=== PATIENT | female | born 1945 | race Caucasian/White ===

== ENCOUNTER 2017-04-21 12:27 | Inpatient (IN) ==
[2017-04-21] MEDS ORDERED: 0.9 % Sodium Chloride 1,000 ML IVC ONE (12:29)
--- NOTE | 2017-04-21 12:49 | Emergency Department Note ---
Disposition Clinical Impression: Elevated troponin Disposition: Admitted As Inpatient Condition: Good Referrals: Janay Ziegler DO [Primary Care Provider] - Forms: ED Satisfaction Letter Time of Disposition: 16:51 URI/Sore Throat HPI - General Chief Complaint: ED Nausea/Vomiting/Diarrhea Stated Complaint: flu-like symptoms Time Seen by Provider: 04/21/17 12:29 Source: patient, EMS Limitations: no limitations - History of Present Illness HPI Narrative: Ms Nina is a 72 yo F with flu like symptoms for the last couple of days. Sick contacts include daughter. Patient is reporting runny nose, nausea, vomiting, diarrhea, headache, fever, chills, and myalgias. She describes the vomiting as watery, and she's unable to hold down food. She's had diarrhea x3 since last night which she describes as watery, and non-bloody. She states that this all started after having ground isabel burgers. She says watery bowels are burning when they come out like she ate something spicy. Patient denies chest pain, back pain, abdominal pain, or trouble urinating. - Related Data Previous Rx's Medication Instructions Recorded Doxycycline 100 mg PO BID 7 Days capsule 02/28/16 Lansoprazole [Prevacid] 30 mg PO DAILY #14 capsule. 02/28/16 predniSONE [PredniSONE] 40 mg PO DAILY #5 tablet 02/28/16 Phenazopyridine [Pyridium] 100 mg PO TID #18 tablet 04/26/16 Sulfacetamide Sodium 10% OPTH 2 drop BOTH EYES QID #5 bottle 01/02/17 [Bleph 10] Azithromycin 250 mg PO DAILY #4 tablet 01/25/17 Allergies Allergy/AdvReac Type Severity Reaction Status Date / Time Amoxicillin AdvReac Hives Verified 02/28/16 09:53 promethazine [From Phenergan] AdvReac Hives Verified 02/28/16 09:53 Tetracyclic Antidepressants AdvReac Hives Verified 02/28/16 09:53 All systems ED: reviewed and negative except as stated. Review of Systems: As Per HPI Constitutional: Reports: as per HPI Eyes: Reports: as per HPI Cardiovascular: Reports: as per HPI Respiratory: Reports: as per HPI Gastrointestinal: Reports: as per HPI Genitourinary: Reports: as per HPI Musculoskeletal: Reports: as per HPI Integumentary: Reports: as per HPI Neurological: Reports: as per HPI Psychiatric: Reports: as per HPI Endocrine: Reports: as per HPI URI PMH - Past Medical History Medical history: Reports: asthma, COPD, diabetes, thyroid disease Psychiatric history: Reports: no psych history - Social History Smoking Status: Never smoker Alcohol use: Reports: none Drug use: Reports: none Physical Exam - General Limitations: no limitations General appearance: alert, in no apparent distress - Head Head exam: atraumatic - Eye Eye exam: Present: normal appearance, PERRL, EOMI - ENT ENT exam: mucous membranes dry - Neck Neck exam: Present: normal inspection, full ROM, trachea midline - Chest Chest inspection: Present: normal inspection, symmetric chest wall rise - Respiratory Respiratory exam: Present: normal lung sounds bilaterally - Cardiovascular Cardiovascular exam: Present: regular rate, normal rhythm, normal heart sounds. Absent: tachycardia, irregular rhythm, systolic murmur, diastolic murmur - Abdominal Exam Abdominal exam: Present: soft, Non-Tender, normal bowel sounds. Absent: tenderness, distention, guarding, rebound, rigidity, psoas sign, obturator sign , heel tap sign, Chavez's sign, Rovsing's sign, tenderness at McBurney's Point, ascites Course Course Narrative: IVF started on patient. flu swab, cbc, cmp pending. - Reevaluation(s) Reevaluation #1: Patient HR is unstable, goes from 80 -> 130 -> 80. Glucose in 300's, with no previous diagnosis of diabetes. Trop 0.9. Will need to be admitted for cardiac workup and concern for PE. Time: 14:30 Reevaluation #2: CT chest ruled out PE. trops ~0.9. Will admit at this time Time: 16:50 Vital Signs Temperature 98.0 F 04/21/17 12:29 Pulse Rate 100 04/21/17 12:29 Respiratory Rate 20 04/21/17 12:29 Blood Pressure 143/77 04/21/17 12:29 O2 Sat by Pulse Oximetry 98 04/21/17 12:29 Temperature 98.0 F 04/21/17 12:29 Pulse Rate 87 04/21/17 13:00 Respiratory Rate 18 04/21/17 13:00 Blood Pressure 147/72 04/21/17 13:00 O2 Sat by Pulse Oximetry 99 04/21/17 13:00 Oxygen Delivery Oxygen Delivery Room Air Upper Respiratory Infection - MDM Narrative Medical decision making narrative: blood sugars in 300's and glucose in urine. tachycardia/afib on ekg with trop 0.9. Will admit for further workup. - Medical Records Medical records reviewed: Yes I reviewed the patient's medical records. - Lab Data Lab results reviewed: Yes I reviewed the patient's lab results. Result diagrams: 04/21/17 12:57 04/21/17 12:57 Lab Results 04/21/17 04/21/17 04/21/17 Range/Units 12:57 12:57 12:57 WBC 7.2 (4.3-11.1) K/mcL RBC 4.07 (3.82-4.97) M/mcL Hgb 11.8 (11.5-15.4) g/dL Hct 37.2 (35.3-44.9) % MCV 91.4 (83.0-100.0) fL MCH 29.0 (28.0-33.3) pg MCHC 31.7 (31.6-35.5) g/dL RDW 13.8 (11.5-14.5) % Plt Count 193 (140-400) K/mcL MPV 10.3 (9.4-12.4) fL Immature Gran % 0.8 (0-4) % Seg Neutrophils % 72.7 % Lymphocytes % 16.2 % Monocytes % 9.5 % Eosinophils % 0.4 % Basophils % 0.4 % Neutrophils # 5.2 (1.6-8.9) K/mcL Lymphocytes # 1.2 (0.6-4.6) K/mcL Monocytes # 0.7 (0.0-1.3) K/mcL Eosinophils # 0.0 (0.0-0.6) K/mcL Basophils # 0.0 (0.0-0.2) K/mcL Nucleated RBCs/100 WBC 0.3 H (0) /100 WBC Sodium 135 L (136-145) mEq/L Potassium 4.0 (3.5-5.1) mEq/L Chloride 101 (98-107) mEq/L Carbon Dioxide 29 (23-29) mEq/L BUN 27 H (8-23) mg/dL Creatinine 0.85 (0.60-1.20) mg/dL Est GFR ( Amer) > 60 (> 60) Est GFR (Non-Af Amer) > 60 (> 60) BUN/Creatinine Ratio 32 H (6-26) Glucose 355 H (70-105) mg/dL Calculated Osmolality 299 (280-300) Lactic Acid 2.4 H (0.5-2.2) mmol/L Calcium 9.2 (8.6-10.3) mg/dL Troponin I (< 0.04) ng/mL Urine Color (Yellow) Urine Clarity (Clear) Urine pH (5.0-8.0) pH Units Ur Specific Elmer (1.010-1.025) Urine Protein (Neg-Trace) mg/dL Urine Glucose (UA) (Normal) mg/dL Urine Ketones (Negative) mg/dL Urine Blood (Negative) Urine Nitrite (Negative) Urine Bilirubin (Negative) Urine Urobilinogen (Normal) mg/dL Ur Leukocyte Esterase (Negative) 04/21/17 04/21/17 Range/Units 12:57 12:58 WBC (4.3-11.1) K/mcL RBC (3.82-4.97) M/mcL Hgb (11.5-15.4) g/dL Hct (35.3-44.9) % MCV (83.0-100.0) fL MCH (28.0-33.3) pg MCHC (31.6-35.5) g/dL RDW (11.5-14.5) % Plt Count (140-400) K/mcL MPV (9.4-12.4) fL Immature Gran % (0-4) % Seg Neutrophils % % Lymphocytes % % Monocytes % % Eosinophils % % Basophils % % Neutrophils # (1.6-8.9) K/mcL Lymphocytes # (0.6-4.6) K/mcL Monocytes # (0.0-1.3) K/mcL Eosinophils # (0.0-0.6) K/mcL Basophils # (0.0-0.2) K/mcL Nucleated RBCs/100 WBC (0) /100 WBC Sodium (136-145) mEq/L Potassium (3.5-5.1) mEq/L Chloride (98-107) mEq/L Carbon Dioxide (23-29) mEq/L BUN (8-23) mg/dL Creatinine (0.60-1.20) mg/dL Est GFR ( Amer) (> 60) Est GFR (Non-Af Amer) (> 60) BUN/Creatinine Ratio (6-26) Glucose (70-105) mg/dL Calculated Osmolality (280-300) Lactic Acid (0.5-2.2) mmol/L Calcium (8.6-10.3) mg/dL Troponin I 0.92 H* (< 0.04) ng/mL Urine Color Yellow (Yellow) Urine Clarity Clear (Clear) Urine pH 6.0 (5.0-8.0) pH Units Ur Specific Elmer > 1.030 H (1.010-1.025) Urine Protein Negative (Neg-Trace) mg/dL Urine Glucose (UA) >=1000 H (Normal) mg/dL Urine Ketones Negative (Negative) mg/dL Urine Blood Negative (Negative) Urine Nitrite Negative (Negative) Urine Bilirubin Negative (Negative) Urine Urobilinogen Normal (Normal) mg/dL Ur Leukocyte Esterase Negative (Negative) - Radiology Data Radiology results reviewed: Yes I reviewed the patient's radiology results. Chest X-Ray 04/21/17 13:50 IMPRESSION: Stable cardiomegaly. Mild pulmonary vascular congestion. D/ / Marcial Grider MD / Marcial Grider MD Interpreting Provider: Marcial Grider MD - EKG Data EKG attestation: Yes I reviewed and interpreted this EKG. EKG shows normal: sinus rhythm Rate: normal [place]/QRS: LBBB Interpretation: other (afib and LBBB.)
[2017-04-21 13:16] LABS: Bilirubin,Urine Negative (Negative); Blood,Urine Negative (Negative); Clarity,Urine Clear (Clear); Color,Urine Yellow (Yellow); Glucose,Urine (UA) >=1000 mg/dL (Normal); Ketones,Urine Negative (Negative); Leukocyte Esterase,Urine Negative (Negative); Nitrite,Urine Negative (Negative); Protein,Urine Negative (Neg-Trace); Specific Gravity,Urine > 1.030 (1.010-1.025); Urobilinogen,Urine Normal (Normal)
[2017-04-21 13:17] LABS: Basophils % 0.4 %; Eosinophils % 0.4 %; Hematocrit 37.2 % (35.3-44.9); Hemoglobin 11.8 g/dL (11.5-15.4); Immature Granulocytes % 0.8 % (0-4); Lymphocytes # 1.2 K/mcL (0.6-4.6); Lymphocytes % 16.2 %; Mean Corpuscular HGB Conc 31.7 g/dL (31.6-35.5); Mean Corpuscular Volume 91.4 fL (83.0-100.0); Mean Platelet Volume 10.3 fL (9.4-12.4); Monocytes # 0.7 K/mcL (0.0-1.3); Monocytes % 9.5 %; Neutrophils # 5.2 K/mcL (1.6-8.9); Nucleated Red Blood Cells 0.3 /100 WBC (0); Platelet Count 193 K/mcL (140-400); Red Blood Count 4.07 M/mcL (3.82-4.97); Red Cell Distribution Width 13.8 % (11.5-14.5); Segmented Neutrophils % 72.7 %
[2017-04-21] MEDS ORDERED: Ondansetron 4 MG/2 ML VIAL IVP ONE (13:22)
[2017-04-21 13:24] LABS: BUN/Creatinine Ratio 32 (6-26); Blood Urea Nitrogen 27 mg/dL (8-23); Calcium 9.2 mg/dL (8.6-10.3); Carbon Dioxide 29 mEq/L (23-29); Chloride 101 mEq/L (98-107); Glucose 355 mg/dL (70-105); Osmolality,Calculated 299 (280-300); Sodium 135 mEq/L (136-145); eGFR For African Americans > 60 (> 60); eGFR For Non-African Americans > 60 (> 60)
--- NOTE | 2017-04-21 14:53 | Emergency Department Note ---
START Narrative - START START: I examined this patient and my medical decision-making was reviewed with the Resident Physician. I agree with the documented findings, disposition and treatment plan as described except to the extent set forth below. 72-year-old female presents to the emergency room with multiple complaints consisting of a cough, sputum production, sore throat, nausea vomiting, diarrhea. She is unsure of any documented fevers. She denies abdominal pain. We are not checking a bunch of labs on her. I noticed her heart rate to be elevated on the heart monitor. She denies any history of A. fib or any diabetes. And workup found that her sugars were elevated. Showed a left bundle branch block. This left bundle branch block is old. It does appear as though she goes into atrial fibrillation at times. At one point her heart rate jumped to the 130s and then drop down to 80 while I was in the room talking with her. Patient will need to be admitted due to the multiple complaint list. Patient will need cardiac monitoring as well. Her troponin tonight is elevated.
[2017-04-21] MEDS ORDERED: *HR* Enoxaparin 120 MG/0.8 ML SYRINGE SQ STA (16:48)
[2017-04-21] MEDS ORDERED: D5% in Water 1,000 ML IVC PRN (17:27)
[2017-04-21] MEDS ORDERED: *HR* Dextrose 50 % in Water (Syg) 50 ML SYRINGE IVP PRN (17:27)
[2017-04-21] MEDS ORDERED: Dextrose Gel 15 GM/37.5 ML TUBE PO PRN ×2 (17:27)
[2017-04-21] MEDS ORDERED: Naloxone 0.4 MG/ML INJ IVP PRN (17:28)
[2017-04-21 17:41] LABS: Creatine Kinase 85 Units/L (30-223)
[2017-04-21] MEDS: Insulin LISPRO 300 UNITS/3 ML VIAL SQ SCH ×2 (18:57→20:53)
[2017-04-21 19:13] LABS: Hemoglobin A1C 9.4 %
[2017-04-21] MEDS: Insulin DETEMIR 100 UNIT/ML X5UNITS SQ SCH (20:53)
--- NOTE | 2017-04-21 21:57 | Internal Med History&Physical ---
Date of Encounter: 04/22/17 Time of Encounter: 21:56 Assessment and Plan (1) Elevated troponin Current visit: Yes Status: Acute 72/female Multiple comorbid conditions. Admitted with worsening shortness of breath, chest pain, flulike symptoms. Noted that patient had elevated troponin. On examination. No third heart sound heard. JVP not raised. Assessment: Elevated troponin likely secondary to demand ischemia/flulike symptoms. However non-STEMI cannot be ruled out. Plan: Admit as observation. Resume home medication. Symptomatic treatment for diarrhea/cough and cold: Viral symptoms. Noted that in the emergency room patient received Lovenox 1 mg per patient. Cardiology consult. We will wait for cardiology recommendations. (2) Flu-like symptoms Current visit: Yes Status: Acute See above (3) Diabetes mellitus Current visit: Yes Status: Acute Patient is known to have a diabetes mellitus. Patient is presently on home medication. We will follow the recommendations from subcutaneous insulin order set. 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 Internal Medicine - H&P: HPI Chief complaint: chest pain Admitted From: Emergency Dept Plans for Post Hospital Care: Home History of present illness: Ms. Nina is a 72 year old female whose primary care physician is Dr. Janay villatoro. Patient is a background medical history of diabetes, hypertension, COPD, hypothyroidism. Patient was complaining of cough along with shortness of breath for the past 4 days. In last 48 hours the symptoms are getting worse. Patient does have a sick contact at home which is her daughter. Patient also complains of nausea, vomiting, headache, fever along with chills and myalgia. She has multiple episodes of vomiting. Patient also claims that she had a 4 or 5 episodes of diarrhea. All the episodes of diarrhea were watery in nature and did not have any blood/black color stools. Patient denies chest pain, back pain, trouble urinating and abdominal pain. Workup in the emergency room. Patient was evaluated in the emergency room. basic labs were drawn. Noted that her troponin was elevated. Reason for admission: elevated troponin to rule out non-STEMI. Past Med Surg Social Fam HX - Past Medical History Medical history: asthma, COPD, diabetes, osteoporosis, RA, thyroid disease Psychiatric history: no psych history - Past Surgical History Surgical History: hysterectomy, orthopedic, other - Social History Smoking Status: Never smoker Smokeless Tobacco Status: No Alcohol use: none Drug use: none - Family History Daughter Hx Family Cancer: Yes Internal Medicine - H&P: Meds Albuterol Sulfate [Ventolin Hfa] 2 puff IH Q4H PRN 04/21/17 [History] Calcium/Magnesium/Zinc [Koksvua-Thnmgplmv-Gfdb Tab] 1 each PO DAILY 04/21/17 [ History] Fluticasone/Salmeterol [Advair 250-50 Diskus] 1 each IH BID 04/21/17 [History] Furosemide [Lasix] 20 mg PO DAILY 04/21/17 [History] Ibuprofen [Motrin] 400 mg PO Q6H PRN 04/21/17 [History] Insulin NPH Hum/Reg Insulin Hm [Novolin 70-30 100 Unit/ml Vial] 15 unit SQ QPM 04/21/17 [History] Insulin NPH Hum/Reg Insulin Hm [Novolin 70-30 100 Unit/ml Vial] 65 unit SQ QAM 04/21/17 [History] Levothyroxine [Synthroid] 175 mcg PO 0630 04/21/17 [History] Nitroglycerin 0.4 mg TD DAILY 04/21/17 [History] Ranitidine HCl [Zantac] 150 mg PO DAILY 04/21/17 [History] Tramadol HCl [Ultram] 50 mg PO Q8H PRN 04/21/17 [History] Vitamin B Complex [B Complex] 1 each PO DAILY 04/21/17 [History] 3 Allergy/AdvReac Type Severity Reaction Status Date / Time Amoxicillin AdvReac Hives Verified 02/28/16 09:53 promethazine [From Phenergan] AdvReac Hives Verified 02/28/16 09:53 Tetracyclic Antidepressants AdvReac Hives Verified 02/28/16 09:53 All Systems PM: A 10-system review of systems was performed and is negative for pertinent findings except as documented above in the HPI. - Constitutional Constitutional: fatigue, fever(s), lethargy, malaise - EENT Eyes: no change in vision, no discharge, no pain, no photophobia Ears: no ear discharge, no ear pain, no tinnitus Nose, mouth and throat: no dysphagia, no nasal discharge, no neck pain, no sore throat - Cardiovascular Cardiovascular ROS IM: diaphoresis, lightheadedness, no chest pain, no dyspnea, no palpitations, no syncope - Respiratory Respiratory: no cough, no dyspnea, no wheezing, no excessive phlegm production - Gastrointestinal Gastrointestinal: no abdominal pain, no diarrhea, no hematemesis, no hematochezia, no melena, no nausea, no vomiting - Genitourinary Genitourinary: no change in urinary stream, no dysuria, no flank pain, no hematuria - Musculoskeletal Musculoskeletal ROS IM: no numbness, no tingling - Integumentary Integumentary IM: no rash, no unusual bruising - Neurological Neurological ROS: no confusion, no convulsions, no focal weakness, no numbness, no tingling, no tremor(s) - Hematologic/Lymphatic Hematologic/Lymphatic: no easy bruising - Constitutional Vitals: Temp Pulse Resp BP Pulse Ox 98.3 F 92 18 101/46 96 04/21/17 20:48 04/21/17 20:48 04/21/17 20:48 04/21/17 20:48 04/21/17 21:10 General appearance: Present: A&O X 3, pleasant, no acute distress, answers questions appropriately - Head Head exam: Present: atraumatic, normocephalic - Eye Eye exam: Present: PERRL, conjuntiva pink, sclera anicteric Pupils: Present: PERRL - Neck Neck exam general surgery: Present: supple, trachea midline. Absent: lymphadenopathy - Respiratory Respiratory exam: Present: CTAB. Absent: accessory muscle use, rales, rhonchi, wheezes - Cardiovascular Cardiovascular exam: Present: RRR, +S1, +S2. Absent: diastolic murmur, gallop, rubs, systolic murmur - GI/Abdominal GI/Abdominal exam: Present: normal bowel sounds, soft, no peritoneal signs. Absent: distended, tenderness - Extremities Exam Extremities exam: Present: warm, radial pulses palpable and symmetrical. Absent : calf tenderness, cyanotic, pedal edema - Neurological Exam Neurological exam: Present: CN II-XII intact, oriented X3, no focal deficits. Absent: pronater drift, facial droop, speech deficit - Skin Skin exam: Present: dry, intact Internal Med - H&P Results - Labs CBC & Chem 7: 04/21/17 12:57 04/21/17 12:57 Labs: Cardiac Enzymes 04/21/17 Range/Units 18:09 Troponin I 0.84 H* (< 0.04) ng/mL
[2017-04-21] MEDS: Budesonide/Formoterol 160/4.5 MDI IH SCH (22:10)
[2017-04-21] MEDS ORDERED: Saline Nasal Spray 44 ML BOTTLE NS PRN (22:19)
[2017-04-21] MEDS: traMADol 50 MG TABLET PO PRN (23:42)
[2017-04-22] MEDS ORDERED: Enoxaparin Weight Dosing SQ STA (00:03)
[2017-04-22] MEDS ORDERED: Ondansetron 4 MG/2 ML VIAL IVP PRN (01:32)
[2017-04-22 06:09] LABS: Basophils % 0.5 %; Eosinophils # 0.1 K/mcL (0.0-0.6); Eosinophils % 1.5 %; Hematocrit 33.9 % (35.3-44.9); Hemoglobin 10.8 g/dL (11.5-15.4); Immature Granulocytes % 0.7 % (0-4); Lymphocytes # 1.7 K/mcL (0.6-4.6); Lymphocytes % 29.2 %; Mean Corpuscular HGB Conc 31.9 g/dL (31.6-35.5); Mean Corpuscular Hemoglobin 29.2 pg (28.0-33.3); Mean Corpuscular Volume 91.6 fL (83.0-100.0); Mean Platelet Volume 10.3 fL (9.4-12.4); Monocytes # 0.7 K/mcL (0.0-1.3); Monocytes % 11.3 %; Neutrophils # 3.4 K/mcL (1.6-8.9); Platelet Count 177 K/mcL (140-400); Red Cell Distribution Width 14.1 % (11.5-14.5); Segmented Neutrophils % 56.8 %
[2017-04-22 06:38] LABS: BUN/Creatinine Ratio 32 (6-26); Blood Urea Nitrogen 22 mg/dL (8-23); Calcium 8.8 mg/dL (8.6-10.3); Carbon Dioxide 27 mEq/L (23-29); Chloride 107 mEq/L (98-107); Chol/HDL Ratio 3.4 (0-4.9); Cholesterol 200 mg/dL (< 200); Glucose 99 mg/dL (70-105); HDL Cholesterol 58 mg/dL (40-59); LDL Cholesterol,Calculated 119 mg/dL (0-99); Osmolality,Calculated 293 (280-300); Potassium 3.8 mEq/L (3.5-5.1); Sodium 140 mEq/L (136-145); Triglycerides 116 mg/dL (< 150); eGFR For African Americans > 60 (> 60); eGFR For Non-African Americans > 60 (> 60)
[2017-04-22] MEDS: Budesonide/Formoterol 160/4.5 MDI IH SCH ×2 (07:37→19:34)
[2017-04-22] MEDS: Insulin LISPRO 300 UNITS/3 ML VIAL SQ SCH ×7 (08:10→17:11)
--- NOTE | 2017-04-22 09:00 | Internal Med Progress Note ---
Date of Encounter: 04/22/17 Time of Encounter: 13:00 - Assessment and plan (1) NSTEMI (non-ST elevated myocardial infarction) Current Visit: Yes Status: Acute Assessment and plan: Patient being treated for acute non-ST elevation TN. Cardiology following. Planned cardiac catheterization today. Anticoagulation With Lovenox. Continue supportive care. High risk for complications. Monitor vital signs closely (2) Elevated troponin Current Visit: Yes Status: Acute (3) Morbid obesity with BMI of 40.0-44.9, adult Current Visit: Yes Status: Acute (4) Diabetes mellitus Current Visit: Yes Status: Acute Assessment and plan: Diabetic diet. Sliding scale insulin and Levemir. Qualifiers: Diabetes mellitus type: type 2 Diabetes mellitus complication status: with unspecified complications Diabetes mellitus correction insulin use: unspecified terminal operator insulin use status Qualified Code(s): E11.8 - Type 2 diabetes mellitus with unspecified complications (5) Flu-like symptoms Current Visit: Yes Status: Acute (6) DVT prophylaxis Current Visit: Yes Status: Acute Assessment and plan: Lovenox - Constitutional Vitals: Temp Pulse Resp BP Pulse Ox 97.5 F L 71 18 119/60 98 04/22/17 06:50 04/22/17 06:50 04/22/17 07:41 04/22/17 06:50 04/22/17 07:41 General appearance: Present: A&O X 3, pleasant, no acute distress, answers questions appropriately - Respiratory Respiratory exam: Present: CTAB. Absent: accessory muscle use, rales, rhonchi, wheezes Additional comments: tenderness over right lateral lower ribs - Cardiovascular Cardiovascular exam: Present: RRR, +S1, +S2. Absent: diastolic murmur, gallop, rubs, systolic murmur - GI/Abdominal GI/Abdominal exam: Present: normal bowel sounds, soft, no peritoneal signs. Absent: distended, tenderness - Extremities Exam Extremities exam: Present: warm, radial pulses palpable and symmetrical. Absent : calf tenderness, cyanotic, pedal edema - Neurological Exam Neurological exam: Present: CN II-XII intact, oriented X3, no focal deficits. Absent: facial droop, speech deficit Internal Medicine: Result - Labs CBC & Chem 7: 04/23/17 06:56 04/23/17 06:56 Labs: Short CBC 04/22/17 Range/Units 05:39 WBC 6.0 (4.3-11.1) K/mcL Hgb 10.8 L (11.5-15.4) g/dL Hct 33.9 L (35.3-44.9) % Plt Count 177 (140-400) K/mcL Neutrophils # 3.4 (1.6-8.9) K/mcL BMP 04/22/17 05:39 Sodium 140 Potassium 3.8 Chloride 107 Carbon Dioxide 27 BUN 22 Creatinine 0.69 Glucose 99 Calcium 8.8 Cardiac Enzymes 04/21/17 04/21/17 Range/Units 18:09 22:55 Troponin I 0.84 H* 0.55 H* (< 0.04) ng/mL Consult Discharge Plan - Plan Referrals: Janay Ziegler DO [Primary Care Provider] -
--- NOTE | 2017-04-22 09:29 | Cardiology Consult Note ---
Date of Encounter: 04/22/17 Time of Encounter: 09:26 Assessment and Plan (1) NSTEMI (non-ST elevated myocardial infarction) Current Visit: Yes Status: Acute Troponins 0.92, 0.84, 0.55--downtrending. Pt reports intermittent left sided chest pressure that started 2 weeks ago, no exacerbating or alleviating factors. Worsening dyspnea and cough. Also reports GI symptoms of nausea, vomiting, diarrhea over the past 48 hours. Flu swabs negative. Pt is afebrile with normal WBC. EKG LBBB--not new. Received therapeutic Lovenox at midnight. Will start ASA, Statin, BB. No hx of CAD, but multiple risk factors--obesity, htn, hld, dm. Check echo to evaluate structure and function. Recommend LHC to further evaluate. R/B/A discussed. Pt agrees to proceed. (2) LBBB (left bundle branch block) Current Visit: Yes Status: Acute LBBB on EKG, not new. Discussion w patient/family: The assessment and plan as outlined above was discussed with the patient and/or family members who expressed understanding and agreement. All questions were answered. Thank you for involving us in the care of your patient. Please call with any questions. I will discuss all the above with Dr. Chadwick and make changes as necessary. History of Present Illness Consult date: 04/22/17 Requesting physician: Kwan Heredia Consult reason: Elevated troponin Chief complaint: chest pain, flu like symptoms History of present illness: Ms. Nina is a 72 year old female with PMH of diabetes, hypertension, COPD, hypothyroidism. Pt reports she started having intermittent left sided chest pressure 2 weeks ago, no exacerbating or alleviating factors. Pt has reported cough and dyspnea over recent days. In last 48 hours symptoms were getting worse , prompting ED evaluation. Patient does have a sick contact at home which is her daughter. Patient also complains of nausea, vomiting, headache, fever along with chills and myalgia. She has had multiple episodes of vomiting. Patient also claims that she had a 4 or 5 episodes of diarrhea. All the episodes of diarrhea were watery in nature and did not have any blood/black color stools. Troponins found to be 0.92, 0.84, 0.55 and cardiology was consulted for further recommendations. EKG LBBB, not new. Flu swab negative. Chest CTA negative for PE. Past Med Surg Social Fam HX - Past Medical History Medical history: asthma, COPD, diabetes, osteoporosis, RA, thyroid disease Psychiatric history: no psych history - Past Surgical History Surgical History: hysterectomy, orthopedic, other - Social History Smoking Status: Never smoker Smokeless Tobacco Status: No Alcohol use: none Drug use: none - Family History Daughter Hx Family Cancer: Yes Medications and Allergies Albuterol Sulfate [Ventolin Hfa] 2 puff IH Q4H PRN 04/21/17 [History] Calcium/Magnesium/Zinc [Ovjvgji-Msvgqhoho-Fvjd Tab] 1 each PO DAILY 04/21/17 [ History] Fluticasone/Salmeterol [Advair 250-50 Diskus] 1 each IH BID 04/21/17 [History] Furosemide [Lasix] 20 mg PO DAILY 04/21/17 [History] Ibuprofen [Motrin] 400 mg PO Q6H PRN 04/21/17 [History] Insulin NPH Hum/Reg Insulin Hm [Novolin 70-30 100 Unit/ml Vial] 15 unit SQ QPM 04/21/17 [History] Insulin NPH Hum/Reg Insulin Hm [Novolin 70-30 100 Unit/ml Vial] 65 unit SQ QAM 04/21/17 [History] Levothyroxine [Synthroid] 175 mcg PO 0630 04/21/17 [History] Nitroglycerin 0.4 mg TD DAILY 04/21/17 [History] Ranitidine HCl [Zantac] 150 mg PO DAILY 04/21/17 [History] Tramadol HCl [Ultram] 50 mg PO Q8H PRN 04/21/17 [History] Vitamin B Complex [B Complex] 1 each PO DAILY 04/21/17 [History] 3 Allergy/AdvReac Type Severity Reaction Status Date / Time Amoxicillin AdvReac Hives Verified 02/28/16 09:53 promethazine [From Phenergan] AdvReac Hives Verified 02/28/16 09:53 Tetracyclic Antidepressants AdvReac Hives Verified 02/28/16 09:53 All Systems Review: A 10-system review of systems was performed and is negative for pertinent findings except as documented above in the HPI. - Constitutional Constitutional: chills, fever(s) - Cardiovascular Cardiovascular: as per HPI, chest pain at rest, chest pain with exertion, dyspnea at rest, dyspnea on exertion - Gastrointestinal Gastrointestinal: diarrhea, nausea Physical Examination Vital Signs, Last 4 Hours Temp Pulse Resp BP Pulse Ox 04/22/17 07:41 18 98 04/22/17 06:50 97.5 F L 71 18 119/60 95 Vital Signs Temp Pulse Resp BP Pulse Ox 04/22/17 07:41 18 98 04/22/17 06:50 97.5 F L 71 18 119/60 95 04/22/17 05:14 97.4 F L 94 17 119/82 94 04/22/17 01:09 77 142/72 04/22/17 00:06 98.5 F 62 17 162/85 96 04/21/17 22:11 19 98 04/21/17 21:10 81 04/21/17 20:48 98.3 F 92 18 101/46 96 04/21/17 13:00 87 18 147/72 99 04/21/17 12:59 99 04/21/17 12:29 98.0 F 100 20 143/77 98 Intake and Output 04/21/17 04/22/17 04/22/17 23:59 07:59 15:59 Intake Total 1150 / 1150 Output Total 300 / 300 Balance 850 / 850 Intake: IV Fluids 1000 / 1000 0.9 % Sodium Chloride 1,000 ML 1000 / 1000 @ 3750 mls/hr IVC .Q16M ONE Rx# :[id number] Oral 150 / 150 Output: Urine 300 / 300 Other: Meal meatloaf and mashed potatoes, goldfish and jello Percent of Meal Consumed 100% Weight 104.383 kg Blood Glucose* 283 89 Patient Weight 04/22/17 23:59 Weight 104.383 kg General: Conversant, No Apparent Distress HEENT: Atraumatic, Normocephaly, Mucus Membranes Moist Neck: No JVD, Normal carotid pulses Cardiac: Reg Rate and Rhythm, Normal S1 and S2, No Murmur Lungs: Normal Breath Sounds, No Wheeze, Rales, Rhonchi Neuro: Alert and responsive, No focal deficits noted Abdomen: Soft, Non-Tender Skin: No rashes noted on visualized skin Musculoskeletal: No Chest Wall Tenderness Extremities: No Clubbing, No Cyanosis, No Edema, Normal Pulses Results 04/22/17 05:39 04/22/17 05:39 Lab Results 04/21/17 04/21/17 04/22/17 18:09 22:55 05:39 WBC 6.0 Hgb 10.8 L Hct 33.9 L Plt Count 177 Sodium Potassium Chloride Carbon Dioxide BUN Creatinine Glucose Calcium Magnesium Troponin I 0.84 H* 0.55 H* 04/22/17 05:39 WBC Hgb Hct Plt Count Sodium 140 Potassium 3.8 Chloride 107 Carbon Dioxide 27 BUN 22 Creatinine 0.69 Glucose 99 Calcium 8.8 Magnesium 2.0 Troponin I Short CBC 04/22/17 04/21/17 Range/Units 05:39 12:57 WBC 6.0 7.2 (4.3-11.1) K/mcL Hgb 10.8 L 11.8 (11.5-15.4) g/dL Hct 33.9 L 37.2 (35.3-44.9) % Plt Count 177 193 (140-400) K/mcL Neutrophils # 3.4 5.2 (1.6-8.9) K/mcL BMP 04/22/17 04/21/17 Range/Units 05:39 12:57 Sodium 140 135 L (136-145) mEq/L Potassium 3.8 4.0 (3.5-5.1) mEq/L Chloride 107 101 (98-107) mEq/L Carbon Dioxide 27 29 (23-29) mEq/L BUN 22 27 H (8-23) mg/dL Creatinine 0.69 0.85 (0.60-1.20) mg/dL Glucose 99 355 H (70-105) mg/dL Calcium 8.8 9.2 (8.6-10.3) mg/dL Cardiac Enzymes 04/21/17 04/21/17 04/21/17 Range/Units 22:55 18:09 12:57 Troponin I 0.55 H* 0.84 H* 0.92 H* (< 0.04) ng/mL Urine 04/21/17 Range/Units 12:58 Urine Color Yellow (Yellow) Urine Clarity Clear (Clear) Urine pH 6.0 (5.0-8.0) pH Units Ur Specific [place] > 1.030 H (1.010-1.025) Urine Protein Negative (Neg-Trace) mg/dL Urine Glucose (UA) >=1000 H (Normal) mg/dL Impressions Chest X-Ray 04/21/17 13:50 IMPRESSION: Stable cardiomegaly. Mild pulmonary vascular congestion. D/ / Marcial Grider MD / Marcial Grider MD Interpreting Provider: Marcial Grider MD Chest CTA 04/21/17 15:15 IMPRESSION: 1. No evidence of pulmonary embolism 2. No infiltrate 3. Possible pulmonary venous hypertension D/ / Tuan Sue MD / Tuan Sue MD Interpreting Provider: Tuan Sue MD Active Medications Budesonide/Formoterol Fumarate (Symbicort) 1 puff IH BIDR JEET Stop: 10/21/17 22:01 Last Admin: 04/22/17 07:37 Dose: 1 puff Dextrose/Water (Dextrose 50% (Syg)) 25 ml IVP AD PRN PRN Reason: Hypoglycemia Stop: 10/21/17 17:28 Famotidine (Pepcid) 20 mg PO DAILY JEET Stop: 10/22/17 09:01 Furosemide (Lasix) 20 mg PO DAILY JEET Stop: 10/22/17 09:01 Glucagon (Glucagen) 1 mg IM ONCE PRN PRN Reason: Hypoglycemia Stop: 10/21/17 17:28 Glucose (Gluctose) 15 gm PO ONCE PRN PRN Reason: Hypoglycemia Stop: 10/21/17 17:28 Glucose (Gluctose) 30 gm PO ONCE PRN PRN Reason: Hypoglycemia Stop: 10/21/17 17:28 Dextrose (Dextrose 5%) 1,000 mls @ 100 mls/hr IVC .Q10H PRN PRN Reason: HYPOGLYCEMIA Stop: 10/21/17 17:28 Insulin Detemir (Levemir) 26 unit 0.25 unit/kg (26 unit) SQ HS JEET Stop: 10/21/17 21:01 Last Admin: 04/21/17 20:53 Dose: 26 unit Insulin Human Lispro (Humalog) 5 units SQ TIDWM JEET Stop: 10/21/17 17:31 Last Admin: 04/22/17 08:10 Dose: Not Given Insulin Human Lispro (Humalog) 0 units SQ HS JEET PRN Reason: Protocol Stop: 10/22/17 21:01 Insulin Human Lispro (Humalog) 0 units SQ TIDAC JEET PRN Reason: Protocol Stop: 10/22/17 08:16 Last Admin: 04/22/17 08:11 Dose: Not Given Levothyroxine Sodium (Synthroid) 175 mcg PO 0630 JEET Stop: 10/22/17 06:31 Last Admin: 04/22/17 05:30 Dose: 175 mcg Naloxone HCl (Narcan) 0.4 mg IVP Q2MIN PRN PRN Reason: SEE COMMENTS Stop: 10/21/17 17:29 Nitroglycerin (Nitroglycerin) 0.4 mg TD DAILY JEET Stop: 10/22/17 09:01 Ondansetron HCl (Zofran) 4 mg IVP Q6HR PRN; Protocol PRN Reason: Nausea Stop: 10/22/17 01:33 Last Admin: 04/22/17 01:41 Dose: 4 mg Sodium Chloride ([place] Nasal [place]) 2 spray NS Q2H PRN PRN Reason: Congestion Stop: 10/21/17 22:20 Last Admin: 04/21/17 22:36 Dose: 2 spray Tramadol HCl (Ultram) 50 mg PO Q8H PRN PRN Reason: Pain Stop: 10/21/17 17:23 Last Admin: 04/21/17 23:42 Dose: 50 mg - EKG Interpretation EKG results cardiology: personally reviewed (SR, LBBB), other (12 hr tele AVG HR 83, SR) Consult Discharge Plan - Plan Referrals: Janay Ziegler DO [Primary Care Provider] -
[2017-04-22] MEDS: Famotidine 20 MG TABLET PO SCH (09:33)
[2017-04-22] MEDS: Furosemide 20 MG TABLET PO SCH (09:33)
[2017-04-22] MEDS: Nitroglycerin 0.4 MG PATCH.TD24 TD SCH ×2 (09:34→09:46)
[2017-04-22] MEDS: Aspirin 81 MG TAB.CHEW PO SCH (10:21)
--- NOTE | 2017-04-22 14:15 | Pre-Sedation Evaluation ---
Pre-sedation evaluation - Pre-sedation checklist Date of procedure: 04/22/17 Procedure: [facility] Recent Vitals: Last Vital Signs Temp 97.5 F L 04/22/17 06:50 Pulse 59 04/22/17 11:48 Resp 16 04/22/17 11:48 BP 135/79 04/22/17 11:48 Pulse Ox 97 04/22/17 11:48 H&P (including ROS) documented in medical record: Yes Previous reaction to sedatives/anesthetics: No Dietary Status: NPO after Midnight Airway Assessment: Patient can open mouth completely, TMJ function normal, Micrognathia (under-bite, receding chin) absent, Neck with adequate range of motion Dentition: No loose teeth or bridges Possible difficult airway: No ASA Classification *see protocol: CLASS II-Mild systemic disease Plan of Care: Pt appropriate candidate for procedure/moderate/conscious sedation , Risks/benefits of procedure/sedation discussed w/ patient/family
[2017-04-22] MEDS ORDERED: *HR* FentaNYL (PF) 100 MCG/2 ML VIAL ONE (14:19)
[2017-04-22] MEDS ORDERED: *HR* Midazolam HCl 2 MG/2 ML VIAL ONE ×2 (14:19→14:51)
[2017-04-22] MEDS ORDERED: 0.9 % Sodium Chloride 1,000 ML ONE ×2 (14:23→15:06)
[2017-04-22] MEDS ORDERED: ISOVUE-370 200 ML INFUS..BTL IV ONE ×2 (15:02→15:05)
[2017-04-22] MEDS ORDERED: Heparin 1,000 UNITS/500 mL 500 ML ONE (15:05)
[2017-04-22] MEDS ORDERED: *HR* Heparin 10,000 UNIT/10 ML VIAL ONE (15:05)
[2017-04-22] MEDS ORDERED: Nitroglycerin 1,000 MCG/10 ML VIAL IV ONE (15:06)
[2017-04-22] MEDS ORDERED: *HR* Bivalirudin 250 MG VIAL IVC ONE (15:19)
[2017-04-22] MEDS ORDERED: *HR* Ticagrelor 90 MG TABLET ONE (15:21)
--- NOTE | 2017-04-22 18:33 | Invasive Diagnostic Lab Proc ---
Name: Brii Nina Date of Study: 04/22/2017 Date: 1945 Ht: 63.0in Medical Record#: [id number] Age: 72 Wt: 104.28lb Gender: Female BSA: 1.47 Order #: [id number] BMI: 18.48 Physicians Procedure Physician: Tatiana Renee MD, [facility] Referring MD: Referring MD: Staff Name Position Time In Sites, Kimber RT (R) Monitor 02:18 PM Nidhi Ricardo RT (R) Scrub 02:18 PM Eliseo Pineda RN Case Filler 02:18 PM Indications Indication Non-Stemi Procedures Performed Procedure L HRT ARTERY/VENTRICLE ANGIO PRQ CARD CARMELO STENT W/ANGIO 1 VSL Pre-Procedure Checklist Informed consent is complete signed and on chart. H&P is on chart. ID band is on and ID verified with patient. Patient NPO for procedure The procedure was described for the patient and questions were answered. Blood Pressure: 119/60 ECG is on chart. Rhythm: NSR Plan of Care Patient will tolerate the procedure without complications. Adequate level of comfort will be maintained. Hemodynamics will remain stable Patient will recover from procedure without complications. Respiratory function will be maintained. Cardiac rhythm will remain stable. Patient temperature will be maintained. Patient and/or family have verbalized understanding of the procedure. Patient Education Chief Complaint/Reason for Test: Cardiac Cath Developmental Category: Geriatric (65+ years) Developmentally Appropriate for Age: Yes Learning Barriers: None Education Needs: Procedure Education Method: Verbal Information Taught: Cardiac Cath Educational Evaluation: Able to repeat information Intravenous Access Time IV Size Location DC'd Fluid/Drip Rate Units RN 20g 1 03/06" Patent On Arrival Lt Antecubital 0.9NaCl Allergies Amoxicillin Celecoxib CODEINE Tetracycline Tetracyclic Antidepressants promethazine Penicillin SULFA (sulfonamide) Vital Signs Time BP (mmHg) HR (bpm) O2 Sat. RR (bpm) LOC 119 / 60 71 98 % 18 02:19 PM / % 5 = Fully awake and oriented or at pre-proc level 02:19 PM / % 5 = Fully awake and oriented or at pre-proc level 02:30 PM 177 / 42 67 100 % 16 02:34 PM 60 / 38 62 98 % 29 02:36 PM 144 / 42 69 95 % 20 02:40 PM 147 / 34 64 98 % 16 02:44 PM 151 / 74 100 99 % 11 02:50 PM 152 / 55 66 99 % 20 02:55 PM 129 / 46 77 91 % 18 02:59 PM 130 / 45 79 97 % 19 03:04 PM 103 / 32 66 96 % 22 03:21 PM 129 / 96 65 95 % 16 5 = Fully awake and oriented or at pre-proc level 03:35 PM 158 / 70 61 96 % 18 5 = Fully awake and oriented or at pre-proc level 03:47 PM 151 / 69 62 97 % 18 5 = Fully awake and oriented or at pre-proc level 04:00 PM 158 / 74 63 100 % 16 5 = Fully awake and oriented or at pre-proc level 04:15 PM 145 / 67 64 98 % 16 5 = Fully awake and oriented or at pre-proc level 04:30 PM 153 / 71 92 99 % 16 5 = Fully awake and oriented or at pre-proc level 04:45 PM 151 / 77 65 98 % 16 5 = Fully awake and oriented or at pre-proc level 05:00 PM 151 / 85 67 98 % 16 5 = Fully awake and oriented or at pre-proc level 05:15 PM 165 / 88 84 98 % 20 5 = Fully awake and oriented or at pre-proc level 05:30 PM 165 / 76 64 99 % 8 5 = Fully awake and oriented or at pre-proc level 06:00 PM 192 / 87 69 98 % 19 5 = Fully awake and oriented or at pre-proc level 06:15 PM 171 / 94 65 99 % 19 5 = Fully awake and oriented or at pre-proc level Procedural Medications Time Medication Dose Units Method Given By 02:19 PM Oxygen 2 L/min nasal cannula Elisoe Pineda RN 02:19 PM Versed 2 mg Intravenous Eliseo Pineda RN 02:19 PM Fentanyl 50 mcg Intravenous Eliseo Pineda RN 02:33 PM Lidocaine 2% 20 ml Subcutaneous Tatiana Renee MD, FACC 02:52 PM Angiomax 0.75mg/kg bolus: 16 ml Intravenous Eliseo Pineda RN 02:52 PM Angiomax 1.75mg/kg/hr: 37 ml Intravenous Eliseo Pineda RN 02:53 PM Versed 1 mg Intravenous Eliseo Pineda RN 02:53 PM Fentanyl 25 mcg Intravenous Eliseo Pineda RN 03:02 PM Nitroglycerin 200 mcg Intracoronary Tatiana Renee MD, FACC 03:07 PM Brilinta 180 mg Orally Eliseo Pineda RN 03:45 PM Angiomax Angela Mancera RN ASA Classification: CLASS II- Mild systemic disease (i.e. well-controlled diabetes, hypertension, asthma, cigarette smoking) Jonathan Score Preprocedure Postprocedure Activity 2- Moves 4 extremities sustained head lift Activity 2- Moves 4 extremities sustained head lift Circulation 2- SBP +/= 20 points of pre-anesthetic level Circulation 2- SBP +/= 20 points of pre-anesthetic level Consciousness 2- Awake and alert oriented x 3 Consciousness 2- Awake and alert oriented x 3 O2 Saturation 2- Able to maintain O2 satruation of 92% on room air O2 Saturation 2- Able to maintain O2 satruation of 92% on room air Respiratory 2- Able to deep breathe and cough well Respiratory 2- Able to deep breathe and cough well Total Score 10 Total Score 10 Contrast Agent: Isovue Diagnostic Contrast: 126 ml Total Contrast: 126 ml Fluoro Dose: 518 mGy Procedure Log Time Note Enter By 02:18 PM Pt arrived to quality control lab tech 2 at 14:18 tsites 02:18 PM Physician arrived 14:18 tsites 02:18 PM Meet and greet completed tsites 02:18 PM Sign in performed according to hospital policy. tsites 02:18 PM Procedure start 14:18 tsites 02:18 PM Kimber Quintero RT (R) Position: Monitor Time in: 14:18 tsites 02:18 PM Nidhi Ricardo RT (R) Position: Scrub Time in: 14:18 tsites 02:19 PM Eliseo Pineda RN Position: Case Filler Time in: 14:18 tsites 02:19 PM Patient charges- Angio tray pack, Navilyst 3mm J, Pulse Oximetry and ACIST tubing and transducer tsites 02:19 PM Case Delayed No tsites 02:19 PM Time: 14: Oxygen on at 2 L/min per nasal cannula by Eliseo Pineda RN tsites 02:19 PM Hair removed from procedure site in holding area using clippers. Bilateral groin prepped with Chloraprep by Kimber Quintero RT (R), then patient was draped. Skin intact. tsites 02:19 PM Time: 14:19 Versed 2 mg Intravenous Given by Eliseo Pineda RN tsites 02:19 PM Time: 14:19 Fentanyl 50 mcg Intravenous Given by Eliseo Pineda RN tsites 02:19 PM Time: 14:19 Patient comfortable and pain free: Yes tsites 02:19 PM Time: 14:19LOC: 5 = Fully awake and oriented or at pre-proc level tsites 02:20 PM Clinical Presentation: Non-STEMI tsites 02:26 PM CathStat 02:26 PM Vitals capture started with the following parameters, Patient=Adult, Interval=5 min, Initial Krtkrojr=247 mmHg, Deflation Rate=5 mmHg, Cuff placed on Right Arm 02:28 PM Vitals capture started with the following parameters, Patient=Adult, Interval=5 min, Initial Sdwoboox=043 mmHg, Deflation Rate=5 mmHg, Cuff placed on Right Arm 02:28 PM Recorded ECG: HR=68 Condition=Condition 1 02:30 PM HR=67 bpm, WVTK=787/42 mmhg, TaU2=134.0 %, Resp=16 B/min 02:33 PM Time out performed according to hospital policy tsites 02:33 PM Time: 14:33 20 ml Lidocaine 2% to right groin Subcutaneous Given by Tatiana Renee MD, [facility] tsites 02:34 PM Pressure channel 1 zero failed. 02:34 PM Pressure channel 1 zero failed. 02:34 PM Pressure channel 1 zeroed. 02:34 PM HR=62 bpm, NIBP=60/38 mmhg, SpO2=98.0 %, Resp=29 B/min 02:34 PM NIBP STAT measurement started. 02:35 PM Time: 14:19LOC: 5 = Fully awake and oriented or at pre-proc level tsites 02:35 PM Time: 14:19 Patient comfortable and pain free: Yes tsites 02:36 PM HR=69 bpm, YCDQ=191/42 mmhg, SpO2=95 %, Resp=20 B/min 02:38 PM Access obtained by percutaneous puncture. 5Fr 10cm Terumo Curlew sheath placed in right Femoral artery. [id number] tsites 02:38 PM 5Fr FL 4 catheter inserted over the wire [facility] tsites 02:38 PM 0.035 145cm Navilyst 3mmJ wire [id number] tsites 02:39 PM LCA angiography performed in multiple views. tsites 02:39 PM Recorded Pressure: Ao, HR=65, Condition=Condition 1 (Aorta) Ao 128/60/87 02:40 PM HR=64 bpm, JZYV=274/34 mmhg, SpO2=98 %, Resp=16 B/min 02:42 PM wire reinserted catheter removed tsites 02:43 PM Recorded Pressure: Ao, HR=80, Condition=Condition 1 (Aorta) Ao 48/-27/6 02:43 PM 5Fr FR 4 catheter inserted over the wire [facility] tsites 02:43 PM RCA angiography performed in multiple views. tsites 02:43 PM wire reinserted catheter removed tsites 02:43 PM 5Fr Pigtail catheter inserted over the wire DN tsites 02:43 PM Catheter selectively placed in left ventricle tsites 02:43 PM Bolus angiogram of left Ventricle complete: 8 ml/sec for a total of 24 mls tsites 02:44 PM Pressure channel 1 zeroed. 02:44 PM KV=356 bpm, BAFK=960/74 mmhg, SpO2=99.0 %, Resp=11 B/min 02:44 PM Recorded Pressure: LV, LV=465, Condition=Condition 1 (Left Ventricle) LV 120/30/49 02:44 PM Recorded Pressure: LV, Ao, HR=59, Condition=Condition 1 (Left Ventricle) LV 114/16/20, (Aorta) Ao 99/48/71 02:45 PM wire reinserted catheter removed tsites 02:49 PM PCI Status Urgent tsites 02:49 PM PCI Indication: PCI for high risk Non-STEMI or unstable angina tsites 02:50 PM PCI lesion in Proximal LAD. Pre Stenosis: 90 Pre DAISY Flow: tsites 02:50 PM PCI lesion in Proximal LAD. tsites 02:50 PM Sheath exchanged for a 6 Fr 11 cm Cordis Yael sheath [id number] tsites 02:50 PM HR=66 bpm, QJCJ=874/55 mmhg, SpO2=99.0 %, Resp=20 B/min 02:51 PM 6Fr XB LAD 3.5 [place] Bright-Tip guide catheter was used to cannulate the PCI vessel successfully. reused? No tsites 02:51 PM Inflation device was opened. tsites 02:51 PM .014 Prowater 180cm guide wire across target lesion- successful. reused? No tsites 02:52 PM Time: 14:52 Angiomax 0.75mg/kg bolus: 16 ml Intravenous Given by Eliseo Pineda RN Fierro pump tsites 02:53 PM Time: 14:52 Angiomax 1.75mg/kg/hr: 37 ml Intravenous Given by Eliseo Pineda RN Fierro pump tsites 02:53 PM Time: 14:53 Versed 1 mg Intravenous Given by Eliseo Pineda RN tsites 02:53 PM Time: 14:53 Fentanyl 25 mcg Intravenous Given by Eliseo Pineda RN tsites 02:55 PM HR=77 bpm, QJKS=979/46 mmhg, SpO2=91.0 %, Resp=18 B/min 02:56 PM 2.0 mm x 12 mm Emerge Monorail balloon across target lesion- successful. reused? No tsites 02:57 PM Balloon inflated @ 10 alexandro for 20 seconds tsites 02:58 PM Recorded Pressure: Ao, HR=77, Condition=Condition 1 (Aorta) Ao 114/48/74 02:58 PM Balloon catheter removed intact. tsites 02:59 PM 2.5mm x 16mm Synergy drug-eluting stent across target lesion- successful Lot #[id number] tsites 02:59 PM HR=79 bpm, ITPT=907/45 mmhg, SpO2=97.0 %, Resp=19 B/min 03:01 PM Stent deployed @ 12 alexandro for 30 seconds tsites 03:01 PM Stent delivery system removed intact. tsites 03:02 PM Time: 15:02 Nitroglycerin 200 mcg Intracoronary Given by Tatiana Renee MD, [facility] tsites 03:02 PM Guide wire removed intact. tsites 03:03 PM wire reinserted catheter removed tsites 03:04 PM Bolus angiogram of right Femoral complete: 2 ml/sec for a total of 4 mls tsites 03:04 PM HR=66 bpm, OVWQ=990/32 mmhg, SpO2=96.0 %, Resp=22 B/min 03:04 PM Coronary Dominance: right tsites 03:05 PM Procedure completed at 15:05 tsites 03:05 PM Did you address DAISY flow and Dominance? Yes tsites 03:06 PM Isovue 370 - 200ml,1 Bottle(s) used. tsites 03:06 PM Sheath left in place to be pulled on floor/holding areaV+Pad tsites 03:06 PM Estimated Blood Loss: less than 20cc tsites 03:06 PM Post ECG NSR tsites 03:06 PM Post Blood Pressure 103/32 tsites 03:06 PM 15:06 Post Pulses Bilateral DP & PT 1+ tsites 03:06 PM Information taught Cardiac Cath and PCI tsites 03:06 PM Education needs Procedure, Plan of Care, and Responsibilities of Patient in Care tsites 03:06 PM Learning barriers :None tsites 03:06 PM Education Methods Verbal tsites 03:06 PM Education evaluation Able to repeat information tsites 03:07 PM Site status No bleeding/hematoma - Rt Groin as reported by Nidhi Ricardo RT (R) at 15:06 tsites 03:07 PM Opsite applied tsites 03:07 PM Plavix, Effient or Brilinta given Yes tsites 03:07 PM Time: 15:07 Brilinta 180 mg Orally Given by Eliseo Pineda RN tsites 03:09 PM Sign out completed: Radiation Dose 518 mGy Fluoro Time: 5.1 Isovue 370 - 200ml contrast 126 ml given by Tatiana Renee MD, FACC. Complications: NoneCardiac Rehab Consult needed: YesConfirmed administered medications: Yes tsites 03:12 PM Report given to angela BALDWIN Pt taken to Holding room Room #1. 15:12 tsites 03:12 PM Delay to floor Bed availability tsites 03:12 PM Patient out of room: 15:12 tsites 03:12 PM no family at this time tsites 03:13 PM Lesion found in Proximal Circumflex. Pre Stenosis: 30 Pre DAISY Flow: tsites 03:14 PM Lesion found in Mid Circumflex. Pre Stenosis: 100 Pre DAISY Flow: tsites 03:14 PM Lesion found in Ramus. Pre Stenosis: 30 Pre DAISY Flow: tsites 03:15 PM Lesion found in Proximal RCA. Pre Stenosis: 40 Pre DAISY Flow: tsites 03:15 PM Lesion found in Mid RCA. Pre Stenosis: 50 Pre DAISY Flow: tsites 03:15 PM Lesion found in LMCA. Pre Stenosis: 25 Pre DAISY Flow: tsites 03:15 PM Left Main Coronary Artery with 25% stenosis tsites 03:15 PM Proximal Left Anterior Descending Coronary Artery with 90% stenosis. If graft is supplying this territory, 0 % stenosis. tsites 03:15 PM Circumflex, Obtuse Marginal, Left Posterior Descending, and Left Posterolateral Coronary Arteries with 100 % stenosis. If graft is supplying this area, 0 % stenosis tsites 03:15 PM Right Coronary, Right Posterior Descending Arteries with Right Posterolateral and Acute Marginal branches with 50 % stenosis. If graft is supplying this area, 0 % stenosis tsites 03:15 PM Ramus with 30% stenosis. If graft is supplying this area, 0 % stenosis tsites 04:05 PM patient voided large amount of clear yellow urine via bed pacheco mprater 05:55 PM Arterial sheath pulled using manual compression and V+ Pad for 17 minutes by Teri Sorenson RT [email or web address] 06:12 PM Right groin soft. opsite applied [email or web address] 06:17 PM Right groin hematoma noted. pressure held [email or web address] 06:24 PM Site soft no hematoma noted [email or web address] 06:27 PM Report given to Shireen BALDWIN Pt taken to 2A Room #38. 18:24 [email or web address] 06:27 PM [facility]: [facility] Complication None Hemodynamics Pressures Site Systolic/A Wave Diastolic/V Wave Mean AO 128 60 87 AO 48 -27 6 LV 120 30 49 LV 114 16 20 AO 99 48 71 AO 114 48 74 Post Procedure Information Blood Pressure: 103/32 mmHg Rhythm: NSR Post procedural instructions were given Site Checks Time Location Status Staff Sheath In? Note 03:06 PM Rt Groin No bleeding/hematoma Nidhi Ricardo RT (R) Yes 03:21 PM Rt Groin No bleeding/ No Hematoma Melissa Dangelo RN Yes 03:35 PM Rt Groin No bleeding/ No Hematoma Angela Lockwood RN Yes 03:45 PM Rt Groin No bleeding/ No Hematoma Angela Lockwood RN Yes 04:00 PM Rt Groin No bleeding/ No Hematoma Angela Lockwood RN Yes 04:15 PM Rt Groin No bleeding/ No Hematoma Melissa Dangelo RN Yes 04:30 PM Rt Groin No bleeding/ No Hematoma Angela Lockwood RN Yes 04:45 PM Rt Groin No bleeding/ No Hematoma Angela Lockwood RN Yes 05:00 PM Rt Groin No bleeding/ No Hematoma Angela Lockwood RN Yes 05:15 PM Rt Groin No bleeding/ No Hematoma Rosibel Yates RN Yes 05:30 PM Rt Groin No bleeding/ No Hematoma Rosibel Yates RN Yes 06:17 PM Rt Groin Hematoma Teri Sorenson RT pressure held Pulses Time Site Pre-Procedure Post-Procedure Note Bilateral DP & PT 1+ 3:06:00 PM Bilateral DP & PT 1+ 04/22/2017 3:21:00 PM Bilateral DP & PT 1+ 04/22/2017 3:45:00 PM Bilateral DP & PT 1+ 04/22/2017 4:00:00 PM Bilateral DP & PT 1+ 04/22/2017 4:30:00 PM Bilateral DP & PT 1+ 04/22/2017 5:00:00 PM Bilateral DP & PT 1+ 04/22/2017 5:15:00 PM Bilateral DP & PT 1+ 04/22/2017 5:30:00 PM Bilateral DP & PT 1+ 04/22/2017 6:00:00 PM Bilateral DP & PT 1+ 04/22/2017 6:15:00 PM Bilateral DP & PT 1+ Updated by Teri Sorenson, RT (R) on 04/22/2017 6:28:09 PM electronically signed on 04/22/2017 6:28:58 PM with status of Final
[2017-04-22] MEDS: traMADol 50 MG TABLET PO PRN (20:56)
[2017-04-22] MEDS: Insulin DETEMIR 100 UNIT/ML X5UNITS SQ SCH (20:58)
[2017-04-22] MEDS ORDERED: Insulin LISPRO 300 UNITS/3 ML VIAL SQ SCH (21:00)
[2017-04-23] MEDS: traMADol 50 MG TABLET PO PRN (05:12)
[2017-04-23 07:15] LABS: Basophils % 0.5 %; Eosinophils # 0.1 K/mcL (0.0-0.6); Eosinophils % 1.7 %; Hematocrit 32.1 % (35.3-44.9); Hemoglobin 10.5 g/dL (11.5-15.4); Immature Granulocytes % 0.7 % (0-4); Lymphocytes # 1.4 K/mcL (0.6-4.6); Lymphocytes % 22.5 %; Mean Corpuscular HGB Conc 32.7 g/dL (31.6-35.5); Mean Corpuscular Hemoglobin 29.7 pg (28.0-33.3); Mean Corpuscular Volume 90.7 fL (83.0-100.0); Mean Platelet Volume 10.3 fL (9.4-12.4); Monocytes # 0.6 K/mcL (0.0-1.3); Monocytes % 9.9 %; Neutrophils # 3.9 K/mcL (1.6-8.9); Platelet Count 142 K/mcL (140-400); Red Blood Count 3.54 M/mcL (3.82-4.97); Red Cell Distribution Width 13.9 % (11.5-14.5); Segmented Neutrophils % 64.7 %
[2017-04-23] MEDS: Budesonide/Formoterol 160/4.5 MDI IH SCH (07:43)
[2017-04-23 08:03] LABS: BUN/Creatinine Ratio 26 (6-26); Blood Urea Nitrogen 18 mg/dL (8-23); Calcium 8.7 mg/dL (8.6-10.3); Carbon Dioxide 28 mEq/L (23-29); Chloride 104 mEq/L (98-107); Glucose 164 mg/dL (70-105); Osmolality,Calculated 288 (280-300); Potassium 4.1 mEq/L (3.5-5.1); Sodium 136 mEq/L (136-145); eGFR For African Americans > 60 (> 60); eGFR For Non-African Americans > 60 (> 60)
[2017-04-23] MEDS: Insulin LISPRO 300 UNITS/3 ML VIAL SQ SCH ×4 (09:45→11:22)
[2017-04-23] MEDS: Furosemide 20 MG TABLET PO SCH (09:45)
[2017-04-23] MEDS: Famotidine 20 MG TABLET PO SCH (09:45)
[2017-04-23] MEDS: Aspirin 81 MG TAB.CHEW PO SCH (09:45)
[2017-04-23] MEDS: Nitroglycerin 0.4 MG PATCH.TD24 TD SCH (09:48)
--- NOTE | 2017-04-23 09:56 | Cardiology Progress Note ---
Date of Encounter: 04/23/17 Time of Encounter: 09:54 Assessment and Plan (1) NSTEMI (non-ST elevated myocardial infarction) Current Visit: Yes Status: Acute Troponins 0.92, 0.84, 0.55, then 1.02 after LHC and PCI. EKG LBBB--not new. 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 [employer] 2ND SHIFT mLCx, EF 60%. Successful PTCA/CARMELO to pLAD. DAPT (ASA and Plavix) uninterrupted x 1 year. Pt verbalizes understanding. Continue Statin, BB. Right femoral access site no bleeding or hematoma, but moderate amount of ecchymosis. Brief episode of chest "soreness" overnight that spontaneously resolved. No CP currently. Will add Imdur 30mg daily. Restrictions s/p LHC discussed. Lifestyle modification discussed. Echo pending. Cardiology signing off. Reconsult PRN. Follow-up as outpt in 1 week. Will coordinate. (2) LBBB (left bundle branch block) Current Visit: Yes Status: Acute LBBB on EKG, not new. Discussion w patient/family: The assessment and plan as outlined above was discussed with the patient and/or family members who expressed understanding and agreement. All questions were answered. Thank you for involving us in the care of your patient. Please call with any questions. I will discuss all the above with Dr. Jurado and make changes as necessary. Subjective Principal diagnosis: NSTEMI Interval history: Pt underwent LHC yesterday for NSTEMI. 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 Echo pending. Pt reports a brief episode of "chest soreness" overnight, but currently chest pain free. No other cardiac complaints. Troponin checked s/p LHC and PCI was 1.02--previously was 0.92, 0.84 , 0.55. Objective Vital Signs, Last 4 Hours Temp Pulse Resp BP Pulse Ox 04/23/17 08:17 98.0 F 86 14 125/73 97 04/23/17 07:44 16 97 Vital Signs Temp Pulse Resp BP Pulse Ox 04/23/17 08:17 98.0 F 86 14 125/73 97 04/23/17 07:44 16 97 04/23/17 03:50 98.3 F 86 16 120/76 95 04/23/17 00:33 98.4 F 82 16 123/77 96 04/22/17 19:39 98.1 F 73 18 150/82 98 04/22/17 19:34 18 99 04/22/17 11:48 59 16 135/79 97 Intake and Output 04/22/17 04/23/17 04/23/17 23:59 07:59 15:59 Output Total 700 / 700 Balance -700 / -700 Output: Urine 700 / 700 Other: Meal Dinner Percent of Meal Consumed 100% Weight 104.2 kg Blood Glucose* 245 237 162 Patient Weight 04/23/17 23:59 Weight 104.2 kg General: Conversant, No Apparent Distress HEENT: Atraumatic, Normocephaly, Mucus Membranes Moist Neck: No JVD, Normal carotid pulses Cardiac: Reg Rate and Rhythm, Normal S1 and S2, No Murmur Lungs: Normal Breath Sounds, No Wheeze, Rales, Rhonchi Abdomen: Soft, Non-Tender Skin: Other (right femoral access site no bleeding or hematoma. Moderate amount of ecchymosis noted.) Musculoskeletal: No Chest Wall Tenderness Extremities: No Clubbing, No Cyanosis, No Edema, Normal Pulses Results 04/23/17 06:56 04/23/17 06:56 Lab Results 04/23/17 04/23/17 04/23/17 06:56 06:56 06:56 WBC 6.0 Hgb 10.5 L Hct 32.1 L Plt Count 142 Sodium 136 Potassium 4.1 Chloride 104 Carbon Dioxide 28 BUN 18 Creatinine 0.68 Glucose 164 H Calcium 8.7 Troponin I 1.02 H* Short CBC 04/23/17 Range/Units 06:56 WBC 6.0 (4.3-11.1) K/mcL Hgb 10.5 L (11.5-15.4) g/dL Hct 32.1 L (35.3-44.9) % Plt Count 142 (140-400) K/mcL Neutrophils # 3.9 (1.6-8.9) K/mcL BMP 04/23/17 Range/Units 06:56 Sodium 136 (136-145) mEq/L Potassium 4.1 (3.5-5.1) mEq/L Chloride 104 (98-107) mEq/L Carbon Dioxide 28 (23-29) mEq/L BUN 18 (8-23) mg/dL Creatinine 0.68 (0.60-1.20) mg/dL Glucose 164 H (70-105) mg/dL Calcium 8.7 (8.6-10.3) mg/dL Cardiac Enzymes 04/23/17 Range/Units 06:56 Troponin I 1.02 H* (< 0.04) ng/mL Active Medications Aspirin (Aspirin) 81 mg PO DAILY [facility] Stop: 10/22/17 10:01 Last Admin: 04/22/17 10:21 Dose: 81 mg Atorvastatin Calcium (Lipitor) 40 mg PO HS [facility] Stop: 10/22/17 21:01 Last Admin: 04/22/17 20:56 Dose: 40 mg Budesonide/Formoterol Fumarate (Symbicort) 1 puff IH BIDR JEET Stop: 10/21/17 22:01 Last Admin: 04/23/17 07:43 Dose: 1 puff Clopidogrel Bisulfate (Plavix) 75 mg PO DAILY [facility] Stop: 10/23/17 09:01 Dextrose/Water (Dextrose 50% (Syg)) 25 ml IVP AD PRN PRN Reason: Hypoglycemia Stop: 10/21/17 17:28 Famotidine (Pepcid) 20 mg PO DAILY JEET Stop: 10/22/17 09:01 Last Admin: 04/22/17 09:33 Dose: 20 mg Furosemide (Lasix) 20 mg PO DAILY [facility] Stop: 10/22/17 09:01 Last Admin: 04/22/17 09:33 Dose: 20 mg Glucagon (Glucagen) 1 mg IM ONCE PRN PRN Reason: Hypoglycemia Stop: 10/21/17 17:28 Glucose (Gluctose) 15 gm PO ONCE PRN PRN Reason: Hypoglycemia Stop: 10/21/17 17:28 Glucose (Gluctose) 30 gm PO ONCE PRN PRN Reason: Hypoglycemia Stop: 10/21/17 17:28 Dextrose (Dextrose 5%) 1,000 mls @ 100 mls/hr IVC .Q10H PRN PRN Reason: HYPOGLYCEMIA Stop: 10/21/17 17:28 Insulin Detemir (Levemir) 26 unit 0.25 unit/kg (26 unit) SQ HS [facility] Stop: 10/21/17 21:01 Last Admin: 04/22/17 20:58 Dose: 26 unit Insulin Human Lispro (Humalog) 5 units SQ TIDWM [facility] Stop: 10/21/17 17:31 Last Admin: 04/22/17 17:11 Dose: Not Given Insulin Human Lispro (Humalog) 0 units SQ HS [facility] PRN Reason: Protocol Stop: 10/22/17 21:01 Last Admin: 04/22/17 20:56 Dose: 3 units Insulin Human Lispro (Humalog) 0 units SQ TIDAC [facility] PRN Reason: Protocol Stop: 10/22/17 08:16 Last Admin: 04/22/17 17:11 Dose: Not Given Levothyroxine Sodium (Synthroid) 175 mcg PO 0630 [facility] Stop: 10/22/17 06:31 Last Admin: 04/23/17 05:12 Dose: 175 mcg Lisinopril (Zestril) 2.5 mg PO DAILY [facility] PRN Reason: Protocol Stop: 10/23/17 09:01 Metoprolol Tartrate (Lopressor) 25 mg PO BID [facility] Stop: 10/22/17 10:01 Last Admin: 04/22/17 20:56 Dose: 25 mg Naloxone HCl (Narcan) 0.4 mg IVP Q2MIN PRN PRN Reason: SEE COMMENTS Stop: 10/21/17 17:29 Nitroglycerin (Nitroglycerin) 0.4 mg TD DAILY [facility] Stop: 10/22/17 09:01 Last Admin: 04/22/17 09:46 Dose: Not Given Ondansetron HCl (Zofran) 4 mg IVP Q6HR PRN; Protocol PRN Reason: Nausea Stop: 10/22/17 01:33 Last Admin: 04/22/17 01:41 Dose: 4 mg Sodium Chloride ([place] Nasal [place]) 2 spray NS Q2H PRN PRN Reason: Congestion Stop: 10/21/17 22:20 Last Admin: 04/21/17 22:36 Dose: 2 spray Tramadol HCl (Ultram) 50 mg PO Q8H PRN PRN Reason: Pain Stop: 10/21/17 17:23 Last Admin: 04/23/17 05:12 Dose: 50 mg - Imaging and Cardiology Echo: pending Cardiac cath: report reviewed - EKG Interpretation EKG results cardiology: other (12 hr tele AVG HR 83, SR) Consult Discharge Plan - Plan Referrals: Janay Ziegler, DO [Primary Care Provider] -
[2017-04-23] MEDS ORDERED: Isosorbide MONOnitrate (24 HR) 30 MG TAB.ER.24H PO SCH (10:15)
[2017-04-23 11:13] VITALS: BP 119/68
--- NOTE | 2017-04-23 14:53 | Discharge Summary ---
Date of Encounter: 04/23/17 Time of Encounter: 14:50 - Discharge Diagnosis (1) NSTEMI (non-ST elevated myocardial infarction) Priority: Primary Status: Acute (2) Elevated troponin Priority: Secondary Status: Acute (3) Morbid obesity with BMI of 40.0-44.9, adult Priority: Secondary Status: Acute (4) Diabetes mellitus Priority: Secondary Status: Acute Qualifiers: Diabetes mellitus type: type 2 Diabetes mellitus complication status: with unspecified complications Diabetes mellitus buttermaker insulin use: unspecified prison insulin use status Qualified Code(s): E11.8 - Type 2 diabetes mellitus with unspecified complications (5) Flu-like symptoms Priority: Secondary Status: Acute (6) DVT prophylaxis Priority: Secondary Status: Acute Hospital course: Ms. Nina is a 72 year old female patient who was hospitalized here with non- ST elevation [place] after presenting with shortness of breath. She was also having flulike symptoms with nausea vomiting fevers or chills and myalgia. She was hospitalized and was started on treatment for non-ST elevation [place] with IV heparin. Cardiology was consulted. Patient's symptoms improved overnight and per cardiology recommendations she underwent left heart catheterization. She was found to have triple-vessel coronary artery disease. She underwent PTCA with drug-eluting stent placement in the proximal LAD. 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 She is now doing much better and is clinically stable for discharge home. 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 She will be on dual antiplatelet therapy. Discharge discussed with: patient, case management - Time Spent with Patient Total time spent providing and/or coordinating discharge services: Greater than 30 minutes (40 min) - Discharge Medications Prescriptions: Aspirin 81 mg PO DAILY #30 tab.chew Clopidogrel [Plavix] 75 mg PO DAILY #30 tablet Metoprolol [Lopressor] 25 mg PO BID #60 tablet Home Medications: Albuterol Sulfate [Ventolin Hfa] 2 puff IH Q4H PRN 04/21/17 [History] Calcium/Magnesium/Zinc [Tvmvjco-Yjdocaqrr-Rslw Tab] 1 each PO DAILY 04/21/17 [ History] Fluticasone/Salmeterol [Advair 250-50 Diskus] 1 each IH BID 04/21/17 [History] Furosemide [Lasix] 20 mg PO DAILY 04/21/17 [History] Insulin NPH Hum/Reg Insulin Hm [Novolin 70-30 100 Unit/ml Vial] 15 unit SQ QPM 04/21/17 [History] Insulin NPH Hum/Reg Insulin Hm [Novolin 70-30 100 Unit/ml Vial] 65 unit SQ QAM 04/21/17 [History] Levothyroxine [Synthroid] 175 mcg PO 0630 04/21/17 [History] Nitroglycerin 0.4 mg TD DAILY 04/21/17 [History] Ranitidine HCl [Zantac] 150 mg PO DAILY 04/21/17 [History] Tramadol HCl [Ultram] 50 mg PO Q8H PRN 04/21/17 [History] Vitamin B Complex [B Complex] 1 each PO DAILY 04/21/17 [History] Aspirin 81 mg PO DAILY #30 tab.chew 04/23/17 [Rx] Clopidogrel [Plavix] 75 mg PO DAILY #30 tablet 04/23/17 [Rx] Metoprolol [Lopressor] 25 mg PO BID #60 tablet 04/23/17 [Rx] Allergies/Adverse Reactions: 3 Allergy/AdvReac Type Severity Reaction Status Date / Time Amoxicillin AdvReac Hives Verified 02/28/16 09:53 promethazine [From Phenergan] AdvReac Hives Verified 02/28/16 09:53 Tetracyclic Antidepressants AdvReac Hives Verified 02/28/16 09:53 Date of admission: 04/22/17 18:05 Primary care physician: Harsh Yoder Consults: 04/22/17 04:41 Consult to Cardiology [CONS] Routine Comment: Consulting Provider: Cardiology Najma Reason for Consult: Elevated troponin Call Completed: No 04/22/17 15:20 Consult to Cardiac Rehabilitation-Phase1 [CONS] Routine Comment: Reason for Consult: post op PCI Call Completed: Yes Discharging clinician: Kade Brooks Anticipated date of discharge: 04/23/17 - Constitutional Vitals: Temp Pulse Resp BP Pulse Ox 98.1 F 80 14 119/68 95 04/23/17 11:04 04/23/17 11:04 04/23/17 11:04 04/23/17 11:04 04/23/17 11:04 General appearance: Present: A&O X 3, pleasant, no acute distress, answers questions appropriately - Neck Neck exam general surgery: Present: supple, trachea midline. Absent: lymphadenopathy - Respiratory Respiratory exam: Present: CTAB. Absent: accessory muscle use, rales, rhonchi, wheezes - Cardiovascular Cardiovascular exam: Present: RRR, +S1, +S2. Absent: diastolic murmur, gallop, rubs, systolic murmur - GI/Abdominal GI/Abdominal exam: Present: normal bowel sounds, soft, no peritoneal signs. Absent: distended, tenderness - Extremities Exam Extremities exam: Present: warm, radial pulses palpable and symmetrical. Absent : calf tenderness, cyanotic, pedal edema - Patient Status Disposition: Home, Self-Care Condition: Good Functional capacity at discharge: uses cane/walker Overall status at discharge: patient is progressing back to baseline - Discharge Instructions Instructions: Myocardial Infarction (DC), Diabetes Mellitus Type 2 in Adults ( DC) Follow Up With: Janay Ziegler DO [Primary Care Provider] - 04/28/17 9:30 am (Please follow up as schedule...) - Diet and Activity Diet: diabetic diet, low fat, low cholesterol, low salt diet
--- NOTE | 2017-04-24 20:50 | Electrocardiograph Report ---
[place] [id number] Test Date: 2017-04-21 Pat Name: Brii Nina Department: 103 Room: 2A38 Gender: F Networker: DYANA : 1945 Requested By: Javier Silva Order Number: [id number] Reading MD: Rosa Jurado Measurements Intervals [place] Rate: 73 P: 97 MS: 169 QRS: -21 QRSD: 148 T: 140 QT: 401 QTc: 426 Interpretive Statements SINUS RHYTHM LEFT BUNDLE BRANCH BLOCK [120+ ms QRS DURATION, 80+ ms Q/S IN V1/V2, 85+ ms R IN I/aVL/V5/V6] Electronically Signed On 04-24-2017 20:48:26 EST by Rosa Jurado
== END 2017-04-23 15:52 | disposition home or self-care (01) | DRG 247 ==
LOC: 2ANU 12:27 → EMEROO 12:27 → SUATTDRO 17:15 → 2ANU 18:41
PROVIDERS: ADMIT Internal Medicine; ATTEND Internal Medicine

== ENCOUNTER 2019-03-18 09:38 | Inpatient (IN) ==
[2019-03-18] MEDS ORDERED: Ondansetron 4 MG/2 ML VIAL ONE (10:49)
[2019-03-18] MEDS ORDERED: Ondansetron 4 MG/2 ML VIAL IVP ONE (10:49)
[2019-03-18 10:50] LABS: Basophils # 0.1 K/mcL (0.0-0.2); Basophils % 0.7 %; Eosinophils # 0.1 K/mcL (0.0-0.6); Eosinophils % 1.1 %; Hematocrit 37.6 % (35.3-44.9); Hemoglobin 12.3 g/dL (11.5-15.4); Immature Granulocytes % 0.8 % (0-4); Lymphocytes # 1.1 K/mcL (0.6-4.6); Lymphocytes % 14.4 %; Mean Corpuscular HGB Conc 32.7 g/dL (31.6-35.5); Mean Corpuscular Hemoglobin 29.7 pg (28.0-33.3); Mean Corpuscular Volume 90.8 fL (83.0-100.0); Monocytes # 0.3 K/mcL (0.0-1.3); Monocytes % 4.6 %; Neutrophils # 5.9 K/mcL (1.6-8.9); Platelet Count 196 K/mcL (140-400); Red Blood Count 4.14 M/mcL (3.82-4.97); Red Cell Distribution Width 13.2 % (11.5-14.5); Segmented Neutrophils % 78.4 %; White Blood Count 7.5 K/mcL (4.3-11.1)
[2019-03-18] MEDS ORDERED: 0.9 % Sodium Chloride 1,000 ML IVC ONE (10:50)
[2019-03-18 11:05] LABS: Bilirubin,Urine Negative (Negative); Blood,Urine Large (Negative); Clarity,Urine Clear (Clear); Color,Urine Yellow (Yellow); Glucose,Urine (UA) >=1000 mg/dL (Normal); Ketones,Urine 40 mg/dL (Negative); Leukocyte Esterase,Urine Small (Negative); Nitrite,Urine Negative (Negative); Protein,Urine Negative (Neg-Trace); Specific Gravity,Urine 1.028 (1.010-1.025); Urobilinogen,Urine Normal (Normal)
[2019-03-18 11:11] LABS: Bacteria,Urine None Seen per hpf (None-Few); Hyaline Casts,Urine None Seen per lpf (None-Few); RBC,Urine 50-100 per hpf (0-3); Squamous Epithelial Cell,Urine Many per lpf (None-Few); WBC,Urine 15-30 per hpf (0-3)
[2019-03-18 11:18] LABS: Albumin 3.8 g/dL (3.5-5.7); Bilirubin,Direct 0.2 mg/dL (0.0-0.2); Bilirubin,Indirect 0.4 mg/dL (0.0-1.0); Bilirubin,Total 0.6 mg/dL (0.3-1.0); Calcium 9.3 mg/dL (8.6-10.3); Globulin 3.7 g/dL (2.4-3.5); Potassium 4.6 mEq/L (3.5-5.1); Total Protein 7.5 g/dL (6.4-8.9)
[2019-03-18] MEDS ORDERED: *HR* FentaNYL (PF) 100 MCG/2 ML VIAL IVP ONE ×2 (11:36→12:59)
[2019-03-18] MEDS ORDERED: Insulin Human Regular 10 UNIT in 0.9 % Sodium Chloride 10 ML IV ONE (11:36)
[2019-03-18] MEDS ORDERED: Isovue-370 500 ML BOTTLE IVP ONE (11:38)
[2019-03-18 12:24] LABS: VBG HCO3 23 mEq/L (21-27); VBG PCO2 46 mmHg (41-51); VBG PH 7.32 pH Units (7.32-7.42); VBG PO2 104 mmHg (25-50)
[2019-03-18] MEDS ORDERED: cefTRIAXone 1,000 MG in Water for inj. (sterile) 10 ML IVP ONE (13:54)
[2019-03-18] MEDS ORDERED: Ondansetron 4 MG/2 ML VIAL IVP PRN (14:24)
[2019-03-18] MEDS ORDERED: Naloxone 0.4 MG/ML INJ IVP PRN (14:24)
[2019-03-18] MEDS ORDERED: Dextrose Gel 15 GM/37.5 ML TUBE PO PRN ×2 (14:28)
[2019-03-18] MEDS ORDERED: D5% in Water 1,000 ML IVC PRN (14:28)
[2019-03-18] MEDS ORDERED: Insulin NPH/REG 70/30 100 UNIT/ML (x5UNIT) SQ SCH ×2 (14:29→18:00)
[2019-03-18] MEDS ORDERED: 0.9 % Sodium Chloride 1,000 ML IVC SCH (14:30)
[2019-03-18 15:27] LABS: Calcium 8.9 mg/dL (8.6-10.3); Magnesium 1.6 mg/dL (1.6-2.6); Potassium 4.7 mEq/L (3.5-5.1)
[2019-03-18 15:45] LABS: Estimated Average Glucose 275 mg/dl
[2019-03-18] MEDS: Isosorbide MONOnitrate (24 HR) 30 MG TAB.ER.24H PO SCH (16:29)
[2019-03-18] MEDS: Ketorolac 15 MG/ML VIAL IVP PRN (16:29)
[2019-03-18] MEDS: Insulin LISPRO 300 UNITS/3 ML VIAL SQ SCH ×3 (16:30→20:27)
[2019-03-18] MEDS ORDERED: Metoclopramide 10 MG/2 ML VIAL IVP ONE (20:12)
[2019-03-19] MEDS: Insulin LISPRO 300 UNITS/3 ML VIAL SQ SCH ×6 (00:17→21:23)
[2019-03-19] MEDS: *HR* Dextrose 50 % in Water (Syg) 50 ML SYRINGE IVP PRN ×2 (03:56→08:48)
[2019-03-19] MEDS: Isosorbide MONOnitrate (24 HR) 30 MG TAB.ER.24H PO SCH (08:42)
[2019-03-19] MEDS ORDERED: 0.9 % Sodium Chloride 1,000 ML IVC ONE (08:53)
[2019-03-19] MEDS ORDERED: 0.9 % Sodium Chloride 500 ML IVC ONE (08:56)
[2019-03-19] MEDS ORDERED: Loratadine 10 MG TABLET PO SCH (09:00)
[2019-03-19] MEDS ORDERED: Famotidine 20 MG TABLET PO SCH (09:00)
[2019-03-19] MEDS ORDERED: Insulin NPH/REG 70/30 100 UNIT/ML (x5UNIT) SQ SCH ×2 (09:00→18:00)
[2019-03-19 09:26] LABS: Basophils % 0.5 %; Eosinophils # 0.2 K/mcL (0.0-0.6); Eosinophils % 2.1 %; Hematocrit 32.5 % (35.3-44.9); Hemoglobin 10.8 g/dL (11.5-15.4); Immature Granulocytes % 0.6 % (0-4); Lymphocytes # 1.5 K/mcL (0.6-4.6); Mean Corpuscular HGB Conc 33.2 g/dL (31.6-35.5); Mean Corpuscular Volume 90.3 fL (83.0-100.0); Mean Platelet Volume 10.3 fL (9.4-12.4); Monocytes # 0.9 K/mcL (0.0-1.3); Monocytes % 10.9 %; Neutrophils # 5.3 K/mcL (1.6-8.9); Platelet Count 200 K/mcL (140-400); Red Cell Distribution Width 13.7 % (11.5-14.5); Segmented Neutrophils % 66.9 %
[2019-03-19 09:49] LABS: Calcium 8.7 mg/dL (8.6-10.3); Magnesium 1.6 mg/dL (1.6-2.6); Phosphorous 4.1 mg/dL (2.7-4.5); Potassium 4.3 mEq/L (3.5-5.1)
[2019-03-19] MEDS ORDERED: Budesonide/Formoterol 80/4.5 1 PUFF INH IH PRN ×2 (11:44→18:08)
[2019-03-19] MEDS ORDERED: Fluticasone Propionate Nasal 50 MCG/SPRAY BOTTLE NS SCH (12:00)
[2019-03-19] MEDS ORDERED: [UNRECOGNIZED DRUG - REMARK] PO SCH (12:00)
[2019-03-19] MEDS: Ketorolac 15 MG/ML VIAL IVP PRN (12:47)
[2019-03-19] MEDS ORDERED: *HR* Propofol 200 MG/20 ML VIAL IVP ONE (15:47)
[2019-03-19] MEDS ORDERED: Ondansetron 4 MG/2 ML VIAL ONE (15:47)
[2019-03-19] MEDS ORDERED: Lidocaine -MPF 4% 5 ML AMPUL ONE (15:47)
[2019-03-19] MEDS ORDERED: Lidocaine -MPF 2% 2 ML VIAL ONE (15:47)
[2019-03-19] MEDS ORDERED: *HR* Succinylcholine 200 MG/10 ML VIAL IVP ONE ×2 (15:47→15:51)
[2019-03-19] MEDS ORDERED: *HR* FentaNYL (PF) 100 MCG/2 ML VIAL ONE (15:47)
[2019-03-19] MEDS ORDERED: Ondansetron 4 MG/2 ML VIAL IVP ONE ×2 (15:51→18:08)
[2019-03-19] MEDS ORDERED: *HR* OxyCODONE Immed Rel 5 MG TABLET PO PRN ×2 (15:51→18:08)
[2019-03-19] MEDS ORDERED: Isovue-300 50ML VIAL ONE (16:11)
[2019-03-19] MEDS ORDERED: cefTRIAXone 1,000 MG in Water for inj. (sterile) 10 ML IVP STA ×2 (16:18→18:08)
[2019-03-19] MEDS ORDERED: Esmolol 100 MG/10 ML VIAL IVP ONE (16:38)
[2019-03-19] MEDS ORDERED: *HR* PHENYLEPHRINE 1,000 MCG/10 ML SYRINGE IVP ONE (16:42)
[2019-03-19] MEDS ORDERED: Insulin LISPRO 300 UNITS/3 ML VIAL SQ SCH (18:00)
[2019-03-19] MEDS ORDERED: Naloxone 0.4 MG/ML INJ IVP PRN (18:08)
[2019-03-19] MEDS ORDERED: Dextrose Gel 15 GM/37.5 ML TUBE PO PRN ×2 (18:08)
[2019-03-19] MEDS ORDERED: *HR* Dextrose 50 % in Water (Syg) 50 ML SYRINGE IVP PRN (18:08)
[2019-03-19] MEDS ORDERED: D5% in Water 1,000 ML IVC PRN (18:08)
[2019-03-19] MEDS: Ondansetron 4 MG/2 ML VIAL IVP PRN (19:43)
[2019-03-20] MEDS ORDERED: Insulin LISPRO 300 UNITS/3 ML VIAL SQ SCH
[2019-03-20] MEDS ORDERED: *HR* HYDROcodone/Acet 7.5/325 mg TABLET PO ONE (00:48)
[2019-03-20 02:30] LABS: Basophils # 0.1 K/mcL (0.0-0.2); Basophils % 0.8 %; Eosinophils # 0.1 K/mcL (0.0-0.6); Eosinophils % 1.8 %; Hematocrit 31.5 % (35.3-44.9); Hemoglobin 10.3 g/dL (11.5-15.4); Immature Granulocytes % 0.6 % (0-4); Lymphocytes # 1.4 K/mcL (0.6-4.6); Lymphocytes % 19.6 %; Mean Corpuscular HGB Conc 32.7 g/dL (31.6-35.5); Mean Corpuscular Hemoglobin 29.9 pg (28.0-33.3); Mean Corpuscular Volume 91.3 fL (83.0-100.0); Mean Platelet Volume 10.4 fL (9.4-12.4); Monocytes # 0.8 K/mcL (0.0-1.3); Monocytes % 11.5 %; Neutrophils # 4.7 K/mcL (1.6-8.9); Platelet Count 211 K/mcL (140-400); Red Blood Count 3.45 M/mcL (3.82-4.97); Red Cell Distribution Width 13.8 % (11.5-14.5); Segmented Neutrophils % 65.7 %; White Blood Count 7.2 K/mcL (4.3-11.1)
[2019-03-20 02:54] LABS: Calcium 8.4 mg/dL (8.6-10.3); Potassium 4.5 mEq/L (3.5-5.1)
[2019-03-20] MEDS ORDERED: 0.9 % Sodium Chloride 1,000 ML IVC SCH (07:30)
[2019-03-20] MEDS: Famotidine 20 MG TABLET PO SCH (09:42)
[2019-03-20] MEDS: Loratadine 10 MG TABLET PO SCH (09:43)
[2019-03-20] MEDS: Fluticasone Propionate Nasal 50 MCG/SPRAY BOTTLE NS SCH (09:43)
[2019-03-20] MEDS: Isosorbide MONOnitrate (24 HR) 30 MG TAB.ER.24H PO SCH (09:43)
[2019-03-20] MEDS: Insulin LISPRO 300 UNITS/3 ML VIAL SQ SCH ×4 (09:44→20:38)
[2019-03-20] MEDS: Insulin NPH/REG 70/30 100 UNIT/ML (x5UNIT) SQ SCH (16:52)
[2019-03-20] MEDS ORDERED: Insulin NPH/REG 70/30 100 UNIT/ML (x5UNIT) SQ SCH (18:00)
[2019-03-21 05:32] LABS: Hematocrit 30.7 % (35.3-44.9); Hemoglobin 10.1 g/dL (11.5-15.4); Mean Corpuscular HGB Conc 32.9 g/dL (31.6-35.5); Mean Corpuscular Hemoglobin 30.2 pg (28.0-33.3); Mean Corpuscular Volume 91.9 fL (83.0-100.0); Mean Platelet Volume 10.4 fL (9.4-12.4); Platelet Count 163 K/mcL (140-400); Red Blood Count 3.34 M/mcL (3.82-4.97); Red Cell Distribution Width 13.5 % (11.5-14.5); White Blood Count 7.1 K/mcL (4.3-11.1)
[2019-03-21 05:49] LABS: Calcium 8.5 mg/dL (8.6-10.3); Magnesium 1.7 mg/dL (1.6-2.6); Potassium 4.3 mEq/L (3.5-5.1)
[2019-03-21] MEDS ORDERED: 0.9 % Sodium Chloride 1,000 ML IVC SCH (08:00)
[2019-03-21] MEDS: Isosorbide MONOnitrate (24 HR) 30 MG TAB.ER.24H PO SCH (08:38)
[2019-03-21] MEDS: Insulin LISPRO 300 UNITS/3 ML VIAL SQ SCH ×4 (08:38→20:50)
[2019-03-21] MEDS: Famotidine 20 MG TABLET PO SCH (08:38)
[2019-03-21] MEDS: Loratadine 10 MG TABLET PO SCH (08:39)
[2019-03-21] MEDS: Insulin NPH/REG 70/30 100 UNIT/ML (x5UNIT) SQ SCH ×2 (08:39→16:53)
[2019-03-21] MEDS: Fluticasone Propionate Nasal 50 MCG/SPRAY BOTTLE NS SCH (08:39)
[2019-03-22 06:56] LABS: Hematocrit 32.5 % (35.3-44.9); Hemoglobin 10.6 g/dL (11.5-15.4); Mean Corpuscular HGB Conc 32.6 g/dL (31.6-35.5); Mean Corpuscular Hemoglobin 29.4 pg (28.0-33.3); Mean Corpuscular Volume 90.3 fL (83.0-100.0); Mean Platelet Volume 10.8 fL (9.4-12.4); Platelet Count 183 K/mcL (140-400); Red Cell Distribution Width 13.7 % (11.5-14.5); White Blood Count 6.3 K/mcL (4.3-11.1)
[2019-03-22 07:13] LABS: BUN/Creatinine Ratio 28 (6-26); Blood Urea Nitrogen 30 mg/dL (8-23); Calcium 8.7 mg/dL (8.6-10.3); Carbon Dioxide 24 mEq/L (23-29); Chloride 102 mEq/L (98-107); Glucose 210 mg/dL (70-105); Osmolality,Calculated 292 (280-300); Potassium 4.5 mEq/L (3.5-5.1); Sodium 135 mEq/L (136-145); eGFR For African Americans > 60 (> 60); eGFR For Non-African Americans 51 (> 60)
[2019-03-22] MEDS: Famotidine 20 MG TABLET PO SCH (09:01)
[2019-03-22] MEDS: Ondansetron 4 MG/2 ML VIAL IVP PRN (09:01)
[2019-03-22] MEDS: Isosorbide MONOnitrate (24 HR) 30 MG TAB.ER.24H PO SCH (09:01)
[2019-03-22] MEDS: Loratadine 10 MG TABLET PO SCH (09:01)
[2019-03-22] MEDS: Fluticasone Propionate Nasal 50 MCG/SPRAY BOTTLE NS SCH (09:02)
[2019-03-22] MEDS: Insulin NPH/REG 70/30 100 UNIT/ML (x5UNIT) SQ SCH ×2 (09:02→17:46)
[2019-03-22] MEDS: Insulin LISPRO 300 UNITS/3 ML VIAL SQ SCH ×4 (09:02→21:14)
[2019-03-22] MEDS ORDERED: *HR* FentaNYL (PF) 100 MCG/2 ML VIAL IVP ONE (17:24)
[2019-03-22] MEDS ORDERED: Ketorolac 15 MG/ML VIAL IM ONE (18:40)
[2019-03-23 04:06] LABS: Basophils % 0.3 %; Eosinophils # 0.2 K/mcL (0.0-0.6); Eosinophils % 2.3 %; Hematocrit 31.5 % (35.3-44.9); Hemoglobin 10.2 g/dL (11.5-15.4); Immature Granulocytes % 0.8 % (0-4); Lymphocytes # 1.3 K/mcL (0.6-4.6); Lymphocytes % 16.4 %; Mean Corpuscular HGB Conc 32.4 g/dL (31.6-35.5); Mean Corpuscular Hemoglobin 30.1 pg (28.0-33.3); Mean Corpuscular Volume 92.9 fL (83.0-100.0); Monocytes # 0.9 K/mcL (0.0-1.3); Monocytes % 10.7 %; Neutrophils # 5.6 K/mcL (1.6-8.9); Platelet Count 173 K/mcL (140-400); Red Blood Count 3.39 M/mcL (3.82-4.97); Red Cell Distribution Width 13.6 % (11.5-14.5); Segmented Neutrophils % 69.5 %
[2019-03-23 04:30] LABS: BUN/Creatinine Ratio 21 (6-26); Blood Urea Nitrogen 22 mg/dL (8-23); Calcium 8.6 mg/dL (8.6-10.3); Carbon Dioxide 27 mEq/L (23-29); Chloride 103 mEq/L (98-107); Glucose 57 mg/dL (70-105); Magnesium 1.6 mg/dL (1.6-2.6); Osmolality,Calculated 279 (280-300); Potassium 4.3 mEq/L (3.5-5.1); Sodium 134 mEq/L (136-145); eGFR For African Americans > 60 (> 60); eGFR For Non-African Americans 52 (> 60)
[2019-03-23 07:02] VITALS: BP 97/63
[2019-03-23] MEDS ORDERED: Aspirin 81 MG TAB.CHEW PO SCH (09:00)
[2019-03-23] MEDS: Famotidine 20 MG TABLET PO SCH (09:20)
[2019-03-23] MEDS: Insulin LISPRO 300 UNITS/3 ML VIAL SQ SCH (09:20)
[2019-03-23] MEDS: Isosorbide MONOnitrate (24 HR) 30 MG TAB.ER.24H PO SCH (09:21)
[2019-03-23] MEDS: Loratadine 10 MG TABLET PO SCH (09:21)
[2019-03-23] MEDS: Fluticasone Propionate Nasal 50 MCG/SPRAY BOTTLE NS SCH (09:22)
[2019-03-23] MEDS: Insulin NPH/REG 70/30 100 UNIT/ML (x5UNIT) SQ SCH (09:22)
[2019-03-25 11:03] LABS: Calculi Mass 102 mg
== END 2019-03-23 10:47 | disposition home or self-care (01) | DRG 669 ==
LOC: 3ANU 09:38 → EMEROOARM 09:38 → SUATTDRO 14:32 → 3ANU 15:41
PROVIDERS: ADMIT Student in an Organized Health Care Education/Training Program; ATTEND Internal Medicine

== ENCOUNTER 2020-04-10 13:39 | Inpatient (IN) ==
[2020-04-10] MEDS ORDERED: *HR* FentaNYL (PF) 100 MCG/2 ML VIAL IVP ONE (16:37)
[2020-04-10] MEDS ORDERED: Ondansetron 4 MG/2 ML VIAL IVP ONE (16:37)
[2020-04-10] MEDS ORDERED: Naloxone 0.4 MG/ML INJ IVP PRN (16:48)
[2020-04-10] MEDS ORDERED: Ondansetron 4 MG/2 ML VIAL IVP PRN (16:48)
[2020-04-10] MEDS ORDERED: *HR* Dextrose 50 % in Water (Vial) 50 ML VIAL IVP PRN (16:51)
[2020-04-10] MEDS ORDERED: D5% in Water 1,000 ML IVC PRN (16:51)
[2020-04-10] MEDS ORDERED: Dextrose Gel 15 GM/37.5 ML TUBE PO PRN ×2 (16:51)
[2020-04-10 17:23] LABS: Basophils % 0.4 %; Eosinophils # 0.3 K/mcL (0.0-0.6); Eosinophils % 3.9 %; Hematocrit 30.2 % (35.3-44.9); Hemoglobin 9.5 g/dL (11.5-15.4); Immature Granulocytes % 0.7 % (0-4); Lymphocytes # 1.7 K/mcL (0.6-4.6); Lymphocytes % 22.2 %; Mean Corpuscular HGB Conc 31.5 g/dL (31.6-35.5); Mean Corpuscular Hemoglobin 29.9 pg (28.0-33.3); Mean Platelet Volume 10.2 fL (9.4-12.4); Monocytes # 0.7 K/mcL (0.0-1.3); Monocytes % 8.9 %; Neutrophils # 4.9 K/mcL (1.6-8.9); Platelet Count 210 K/mcL (140-400); Red Blood Count 3.18 M/mcL (3.82-4.97); Red Cell Distribution Width 13.5 % (11.5-14.5); Segmented Neutrophils % 63.9 %; White Blood Count 7.7 K/mcL (4.3-11.1)
[2020-04-10] MEDS ORDERED: Ipratropium/Albuterol Neb 3 ML IH PRN (17:39)
[2020-04-10 17:41] LABS: C-Reactive Protein 51 mg/L (Less than 10)
[2020-04-10 17:43] LABS: Prothrombin Time 11.7 Seconds (9.4-12.1)
[2020-04-10 17:46] LABS: Activated Partial Thrombo Time 27.1 Seconds (26.0-36.0)
[2020-04-10 17:49] LABS: Alanine Aminotransferase 16 Units/L (7-52); Albumin 3.4 g/dL (3.5-5.7); Alkaline Phosphatase 134 Units/L (34-104); Aspartate Amino Transferase 24 Units/L (13-39); BUN/Creatinine Ratio 34 (6-26); Bilirubin,Total 0.4 mg/dL (0.3-1.0); Blood Urea Nitrogen 31 mg/dL (8-23); Calcium 9.2 mg/dL (8.6-10.3); Carbon Dioxide 32 mEq/L (23-29); Chloride 101 mEq/L (98-107); Globulin 3.5 g/dL (2.4-3.5); Glucose 173 mg/dL (70-105); Magnesium 1.9 mg/dL (1.6-2.6); Osmolality,Calculated 293 (280-300); Phosphorous 3.7 mg/dL (2.7-4.5); Potassium 4.3 mEq/L (3.5-5.1); Sodium 136 mEq/L (136-145); Total Protein 6.9 g/dL (6.4-8.9); eGFR For African Americans > 60 (> 60); eGFR For Non-African Americans 60 (> 60)
[2020-04-10 18:07] LABS: Creatine Kinase 464 Units/L (30-223)
[2020-04-10] MEDS: Insulin DETEMIR 100 UNIT/ML X5UNITS SUBQ SCH (20:47)
[2020-04-11] MEDS: Acetaminophen 325 MG TABLET PO PRN ×2 (02:04→09:36)
[2020-04-11] MEDS: Insulin LISPRO 300 UNITS/3 ML VIAL SUBQ SCH ×3 (09:34→17:07)
[2020-04-11] MEDS: Nitroglycerin 0.4 MG PATCH.TD24 TD SCH (09:35)
[2020-04-11] MEDS: Isosorbide MONOnitrate (24 HR) 30 MG TAB.ER.24H PO SCH (09:36)
[2020-04-11] MEDS ORDERED: Metoclopramide 10 MG/2 ML VIAL IVP ONE (11:39)
[2020-04-11] MEDS ORDERED: Fluticasone Propionate Nasal 50 MCG/SPRAY BOTTLE NS PRN (13:54)
[2020-04-11] MEDS: Insulin DETEMIR 100 UNIT/ML X5UNITS SUBQ SCH (20:45)
[2020-04-11] MEDS ORDERED: Insulin LISPRO 300 UNITS/3 ML VIAL SUBQ SCH (21:45)
[2020-04-12] MEDS: Insulin LISPRO 300 UNITS/3 ML VIAL SUBQ SCH ×6 (00:53→20:50)
[2020-04-12 01:48] LABS: Hematocrit 30.1 % (35.3-44.9); Hemoglobin 9.4 g/dL (11.5-15.4)
[2020-04-12 02:05] LABS: Magnesium 1.9 mg/dL (1.6-2.6); Potassium 4.5 mEq/L (3.5-5.1)
[2020-04-12] MEDS: Acetaminophen 325 MG TABLET PO PRN ×2 (03:56→11:42)
[2020-04-12] MEDS: Lactobacillus 1 EACH CAP.SPRINK PO SCH (09:53)
[2020-04-12] MEDS: Loratadine 10 MG TABLET PO SCH (09:54)
[2020-04-12] MEDS: Isosorbide MONOnitrate (24 HR) 30 MG TAB.ER.24H PO SCH (09:56)
[2020-04-12] MEDS: Nitroglycerin 0.4 MG PATCH.TD24 TD SCH (09:56)
[2020-04-12] MEDS: Insulin DETEMIR 100 UNIT/ML X5UNITS SUBQ SCH (20:49)
[2020-04-13] MEDS: Insulin LISPRO 300 UNITS/3 ML VIAL SUBQ SCH ×4 (00:32→12:43)
[2020-04-13 04:29] LABS: Basophils % 0.5 %; Eosinophils # 0.4 K/mcL (0.0-0.6); Eosinophils % 4.8 %; Hematocrit 31.8 % (35.3-44.9); Hemoglobin 9.7 g/dL (11.5-15.4); Immature Granulocytes % 1.3 % (0-4); Lymphocytes # 1.5 K/mcL (0.6-4.6); Lymphocytes % 18.6 %; Mean Corpuscular HGB Conc 30.5 g/dL (31.6-35.5); Mean Corpuscular Hemoglobin 28.8 pg (28.0-33.3); Mean Corpuscular Volume 94.4 fL (83.0-100.0); Mean Platelet Volume 10.3 fL (9.4-12.4); Monocytes # 0.7 K/mcL (0.0-1.3); Monocytes % 9.2 %; Neutrophils # 5.2 K/mcL (1.6-8.9); Platelet Count 218 K/mcL (140-400); Red Blood Count 3.37 M/mcL (3.82-4.97); Red Cell Distribution Width 13.3 % (11.5-14.5); Segmented Neutrophils % 65.6 %
[2020-04-13 04:49] LABS: % Iron Saturation 13 % (15-50); BUN/Creatinine Ratio 35 (6-26); Blood Urea Nitrogen 34 mg/dL (8-23); Calcium 9.3 mg/dL (8.6-10.3); Carbon Dioxide 30 mEq/L (23-29); Chloride 99 mEq/L (98-107); Glucose 205 mg/dL (70-105); Iron 35 mcg/dL (50-170); Magnesium 1.9 mg/dL (1.6-2.6); Osmolality,Calculated 296 (280-300); Potassium 4.5 mEq/L (3.5-5.1); Sodium 136 mEq/L (136-145); Transferrin 193 mg/dL (203-362); eGFR For African Americans > 60 (> 60); eGFR For Non-African Americans 56 (> 60)
[2020-04-13 05:02] LABS: Thyroid Stimulating Hormone 20.614 mcIU/mL (0.340-5.600)
[2020-04-13 05:06] LABS: Ferritin 134 ng/mL (10-120)
[2020-04-13 05:11] LABS: Folate 6.3 ng/mL (3.0-16.0)
[2020-04-13] MEDS: Lactobacillus 1 EACH CAP.SPRINK PO SCH (08:37)
[2020-04-13] MEDS: Loratadine 10 MG TABLET PO SCH (08:38)
[2020-04-13] MEDS: Isosorbide MONOnitrate (24 HR) 30 MG TAB.ER.24H PO SCH (08:38)
[2020-04-13] MEDS: Nitroglycerin 0.4 MG PATCH.TD24 TD SCH (08:39)
[2020-04-13] MEDS: Insulin DETEMIR 100 UNIT/ML X5UNITS SUBQ SCH (08:52)
[2020-04-13] MEDS ORDERED: levoFLOXacin 500 MG TABLET PO SCH (09:00)
[2020-04-13 09:15] LABS: Triiodothyronine (T3) Free 2.37 pg/mL (2.50-3.90)
[2020-04-13 11:21] LABS: Estimated Average Glucose 194 mg/dl; Hemoglobin A1C 8.4 %
[2020-04-13 11:55] VITALS: BP 146/86
[2020-04-13] MEDS ORDERED: *HR* OxyCODONE Immed Rel 5 MG TABLET PO ONE (12:38)
== END 2020-04-13 15:07 | DRG 563 ==
LOC: 3NENU 13:39 → EMEROOARM 13:39 → SUATTDRO 16:56 → 3NENU 17:24 → SUATTDRO 04-11 13:43
PROVIDERS: ADMIT Internal Medicine; ATTEND Pharmacist

== ENCOUNTER 2020-08-11 01:39 | Inpatient (IN) ==
[2020-08-11] MEDS ORDERED: Ondansetron 4 MG/2 ML VIAL IVP ONE (03:07)
[2020-08-11] MEDS ORDERED: 0.9 % Sodium Chloride 1,000 ML IVC ONE (03:07)
[2020-08-11] MEDS ORDERED: Pantoprazole 40 MG VIAL IVP ONE (03:15)
[2020-08-11 03:29] LABS: Basophils # 0.1 K/mcL (0.0-0.2); Basophils % 0.7 %; Eosinophils # 0.3 K/mcL (0.0-0.6); Eosinophils % 3.9 %; Hematocrit 33.6 % (35.3-44.9); Hemoglobin 10.3 g/dL (11.5-15.4); Immature Granulocytes % 1.1 % (0-4); Lymphocytes # 1.6 K/mcL (0.6-4.6); Lymphocytes % 22.6 %; Mean Corpuscular HGB Conc 30.7 g/dL (31.6-35.5); Mean Corpuscular Hemoglobin 28.9 pg (28.0-33.3); Mean Corpuscular Volume 94.1 fL (83.0-100.0); Mean Platelet Volume 11.2 fL (9.4-12.4); Monocytes # 0.8 K/mcL (0.0-1.3); Monocytes % 11.3 %; Neutrophils # 4.3 K/mcL (1.6-8.9); Platelet Count 259 K/mcL (140-400); Red Blood Count 3.57 M/mcL (3.82-4.97); Red Cell Distribution Width 15.4 % (11.5-14.5); Segmented Neutrophils % 60.4 %; White Blood Count 7.2 K/mcL (4.3-11.1)
[2020-08-11 03:40] LABS: Albumin 3.6 g/dL (3.5-5.7); Albumin/Globulin Ratio 1.1 (1.1-2.2); Bilirubin,Direct 0.1 mg/dL (0.0-0.2); Bilirubin,Indirect 0.2 mg/dL (0.0-1.0); Bilirubin,Total 0.3 mg/dL (0.3-1.0); Calcium 9.4 mg/dL (8.6-10.3); Globulin 3.4 g/dL (2.4-3.5); Potassium 4.4 mEq/L (3.5-5.1); Troponin I 0.05 ng/mL (< 0.04)
[2020-08-11 04:17] LABS: Prothrombin Time 11.6 Seconds (9.4-12.1)
[2020-08-11 04:19] LABS: Activated Partial Thrombo Time 31.5 Seconds (26.0-36.0)
[2020-08-11] MEDS ORDERED: Naloxone 0.4 MG/ML INJ IVP PRN (06:13)
[2020-08-11] MEDS ORDERED: Ipratropium/Albuterol Neb 3 ML IH PRN (07:44)
[2020-08-11] MEDS ORDERED: Dextrose Gel 15 GM/37.5 ML TUBE PO PRN ×2 (08:30)
[2020-08-11] MEDS ORDERED: D5% in Water 1,000 ML IVC PRN (08:30)
[2020-08-11] MEDS ORDERED: *HR* Dextrose 50 % in Water (Vial) 50 ML VIAL IVP PRN (08:30)
[2020-08-11] MEDS: Pantoprazole 40 MG in 0.9 % Sodium Chloride Mini Bag 100 ML IVC SCH ×3 (08:33→20:54)
[2020-08-11] MEDS ORDERED: Metoclopramide 10 MG/2 ML VIAL IVP PRN (10:24)
[2020-08-11] MEDS ORDERED: *HR* Propofol 200 MG/20 ML VIAL IVP ONE (10:41)
[2020-08-11] MEDS ORDERED: Lidocaine -MPF 2% 5 ML VIAL ONE (10:41)
[2020-08-11] MEDS ORDERED: Metoclopramide 10 MG/2 ML VIAL ONE (10:51)
[2020-08-11] MEDS ORDERED: *HR* Metoprolol 5 MG/5 ML VIAL IVP PRN (11:05)
[2020-08-11] MEDS ORDERED: *HR* FentaNYL (PF) 100 MCG/2 ML VIAL IVP PRN (11:05)
[2020-08-11] MEDS ORDERED: Ondansetron 4 MG/2 ML VIAL IVP PRN (11:05)
[2020-08-11] MEDS ORDERED: *HR* EPINEPHrine 1 MG/10 ML SYRINGE INTRATRACH PRN (11:40)
[2020-08-11] MEDS ORDERED: *HR* Metoprolol 5 MG/5 ML VIAL IVP ONE (11:53)
[2020-08-11] MEDS: Ondansetron 4 MG/2 ML VIAL IVP SCH ×2 (12:35→17:38)
[2020-08-11] MEDS ORDERED: Perflutren Lipid Microsphere 1.3 ML in 0.9 % Sodium Chloride 8.7 ML IVP PRN (12:43)
[2020-08-11] MEDS: Insulin LISPRO 300 UNITS/3 ML VIAL SUBQ SCH ×2 (13:27→17:39)
[2020-08-11 13:43] LABS: Basophils # 0.1 K/mcL (0.0-0.2); Basophils % 0.5 %; Eosinophils # 0.2 K/mcL (0.0-0.6); Hematocrit 32.5 % (35.3-44.9); Hemoglobin 9.9 g/dL (11.5-15.4); Immature Granulocytes % 0.7 % (0-4); Lymphocytes # 1.2 K/mcL (0.6-4.6); Lymphocytes % 12.4 %; Mean Corpuscular HGB Conc 30.5 g/dL (31.6-35.5); Mean Corpuscular Hemoglobin 29.1 pg (28.0-33.3); Mean Corpuscular Volume 95.6 fL (83.0-100.0); Mean Platelet Volume 11.1 fL (9.4-12.4); Monocytes # 0.8 K/mcL (0.0-1.3); Monocytes % 8.1 %; Neutrophils # 7.2 K/mcL (1.6-8.9); Platelet Count 228 K/mcL (140-400); Red Cell Distribution Width 15.3 % (11.5-14.5); Segmented Neutrophils % 76.3 %; White Blood Count 9.4 K/mcL (4.3-11.1)
[2020-08-11] MEDS ORDERED: Pantoprazole 40 MG VIAL IVP SCH (18:00)
[2020-08-11] MEDS: 0.9 % Sodium Chloride 1,000 ML IVC SCH ×2 (20:10→20:11)
[2020-08-12] MEDS: 0.9 % Sodium Chloride 1,000 ML IVC SCH (00:05)
[2020-08-12] MEDS: Ondansetron 4 MG/2 ML VIAL IVP SCH ×5 (00:07→23:47)
[2020-08-12] MEDS: Insulin LISPRO 300 UNITS/3 ML VIAL SUBQ SCH ×5 (00:12→20:29)
[2020-08-12] MEDS: Pantoprazole 40 MG in 0.9 % Sodium Chloride Mini Bag 100 ML IVC SCH ×6 (02:12→23:48)
[2020-08-12 07:56] LABS: Alanine Aminotransferase 10 Units/L (7-52); Albumin/Globulin Ratio 1.1 (1.1-2.2); Alkaline Phosphatase 112 Units/L (34-104); Aspartate Amino Transferase 13 Units/L (13-39); BUN/Creatinine Ratio 22 (6-26); Bilirubin,Total 0.4 mg/dL (0.3-1.0); Blood Urea Nitrogen 22 mg/dL (8-23); Calcium 8.3 mg/dL (8.6-10.3); Carbon Dioxide 24 mEq/L (23-29); Chloride 105 mEq/L (98-107); Globulin 2.8 g/dL (2.4-3.5); Glucose 320 mg/dL (70-105); Osmolality,Calculated 298 (280-300); Potassium 4.3 mEq/L (3.5-5.1); Sodium 136 mEq/L (136-145); Total Protein 5.8 g/dL (6.4-8.9); eGFR For African Americans > 60 (> 60); eGFR For Non-African Americans 53 (> 60)
[2020-08-12 08:26] LABS: Basophils % 0.4 %; Eosinophils # 0.4 K/mcL (0.0-0.6); Eosinophils % 5.2 %; Hematocrit 30.5 % (35.3-44.9); Hemoglobin 9.4 g/dL (11.5-15.4); Lymphocytes # 1.3 K/mcL (0.6-4.6); Lymphocytes % 19.1 %; Mean Corpuscular HGB Conc 30.8 g/dL (31.6-35.5); Mean Corpuscular Volume 94.1 fL (83.0-100.0); Mean Platelet Volume 10.6 fL (9.4-12.4); Monocytes # 0.6 K/mcL (0.0-1.3); Monocytes % 8.3 %; Neutrophils # 4.6 K/mcL (1.6-8.9); Platelet Count 219 K/mcL (140-400); Red Blood Count 3.24 M/mcL (3.82-4.97); Red Cell Distribution Width 15.4 % (11.5-14.5)
[2020-08-12 08:52] LABS: BUN/Creatinine Ratio 19 (6-26); Blood Urea Nitrogen 20 mg/dL (8-23); Calcium 8.2 mg/dL (8.6-10.3); Carbon Dioxide 23 mEq/L (23-29); Chloride 106 mEq/L (98-107); Glucose 263 mg/dL (70-105); Osmolality,Calculated 296 (280-300); Potassium 4.1 mEq/L (3.5-5.1); Sodium 137 mEq/L (136-145); eGFR For African Americans > 60 (> 60); eGFR For Non-African Americans 50 (> 60)
[2020-08-12 09:02] LABS: Troponin I 0.08 ng/mL (< 0.04)
[2020-08-12] MEDS: Isosorbide MONOnitrate (24 HR) 30 MG TAB.ER.24H PO SCH (10:24)
[2020-08-12] MEDS: Sucralfate 1 GM TABLET PO SCH ×3 (10:24→22:17)
[2020-08-12] MEDS: Menthol 1 EACH LOZENGE PO PRN (22:17)
[2020-08-13] MEDS ORDERED: Acetaminophen 325 MG TABLET PO PRN (02:04)
[2020-08-13 02:10] LABS: Basophils % 0.5 %; Eosinophils # 0.4 K/mcL (0.0-0.6); Eosinophils % 5.8 %; Hematocrit 28.4 % (35.3-44.9); Hemoglobin 9.1 g/dL (11.5-15.4); Immature Granulocytes % 1.5 % (0-4); Lymphocytes # 1.7 K/mcL (0.6-4.6); Lymphocytes % 25.7 %; Mean Corpuscular Hemoglobin 29.4 pg (28.0-33.3); Mean Corpuscular Volume 91.9 fL (83.0-100.0); Mean Platelet Volume 10.4 fL (9.4-12.4); Monocytes # 0.7 K/mcL (0.0-1.3); Monocytes % 11.2 %; Neutrophils # 3.6 K/mcL (1.6-8.9); Platelet Count 197 K/mcL (140-400); Red Blood Count 3.09 M/mcL (3.82-4.97); Red Cell Distribution Width 15.2 % (11.5-14.5); Segmented Neutrophils % 55.3 %; White Blood Count 6.5 K/mcL (4.3-11.1)
[2020-08-13 02:29] LABS: BUN/Creatinine Ratio 20 (6-26); Blood Urea Nitrogen 20 mg/dL (8-23); Calcium 8.4 mg/dL (8.6-10.3); Carbon Dioxide 24 mEq/L (23-29); Chloride 108 mEq/L (98-107); Glucose 76 mg/dL (70-105); Osmolality,Calculated 287 (280-300); Potassium 4.1 mEq/L (3.5-5.1); Sodium 138 mEq/L (136-145); eGFR For African Americans > 60 (> 60); eGFR For Non-African Americans 53 (> 60)
[2020-08-13] MEDS: Menthol 1 EACH LOZENGE PO PRN ×3 (03:31→23:10)
[2020-08-13] MEDS: Ondansetron 4 MG/2 ML VIAL IVP SCH ×4 (05:10→23:10)
[2020-08-13] MEDS: Pantoprazole 40 MG in 0.9 % Sodium Chloride Mini Bag 100 ML IVC SCH ×2 (05:11→09:40)
[2020-08-13] MEDS: Metoprolol XL (24 HR) Succ 25 MG TAB.ER.24H PO SCH (09:41)
[2020-08-13] MEDS: Isosorbide MONOnitrate (24 HR) 30 MG TAB.ER.24H PO SCH (09:41)
[2020-08-13] MEDS: Sucralfate 1 GM TABLET PO SCH ×4 (09:41→20:53)
[2020-08-13] MEDS: Insulin LISPRO 300 UNITS/3 ML VIAL SUBQ SCH ×4 (10:08→20:54)
[2020-08-13 11:52] LABS: Basophils % 0.6 %; Eosinophils # 0.2 K/mcL (0.0-0.6); Eosinophils % 2.5 %; Hematocrit 28.5 % (35.3-44.9); Hemoglobin 8.9 g/dL (11.5-15.4); Lymphocytes % 14.7 %; Mean Corpuscular HGB Conc 31.2 g/dL (31.6-35.5); Mean Corpuscular Hemoglobin 29.4 pg (28.0-33.3); Mean Corpuscular Volume 94.1 fL (83.0-100.0); Mean Platelet Volume 10.4 fL (9.4-12.4); Monocytes # 0.5 K/mcL (0.0-1.3); Monocytes % 6.3 %; Neutrophils # 5.3 K/mcL (1.6-8.9); Platelet Count 181 K/mcL (140-400); Red Blood Count 3.03 M/mcL (3.82-4.97); Red Cell Distribution Width 15.2 % (11.5-14.5); Segmented Neutrophils % 74.9 %; White Blood Count 7.1 K/mcL (4.3-11.1)
[2020-08-13 11:53] LABS: VBG HCO3 17 mEq/L (21-27); VBG PCO2 26 mmHg (41-51); VBG PH 7.43 pH Units (7.32-7.42); VBG PO2 104 mmHg (25-50)
[2020-08-13 12:10] LABS: Calcium 8.3 mg/dL (8.6-10.3); Potassium 4.1 mEq/L (3.5-5.1)
[2020-08-13 12:17] LABS: Troponin I 0.05 ng/mL (< 0.04)
[2020-08-13] MEDS ORDERED: Ringers Solution, Lactated 1,000 ML IVC SCH (13:00)
[2020-08-13] MEDS: Pantoprazole 40 MG VIAL IVP SCH (17:06)
[2020-08-13] MEDS ORDERED: Insulin DETEMIR 100 UNIT/ML X5UNITS SUBQ SCH (21:00)
[2020-08-14 03:18] LABS: Basophils % 0.5 %; Eosinophils # 0.3 K/mcL (0.0-0.6); Eosinophils % 5.1 %; Hematocrit 28.1 % (35.3-44.9); Hemoglobin 9.1 g/dL (11.5-15.4); Immature Granulocytes % 1.8 % (0-4); Lymphocytes # 1.3 K/mcL (0.6-4.6); Lymphocytes % 23.1 %; Mean Corpuscular HGB Conc 32.4 g/dL (31.6-35.5); Mean Corpuscular Hemoglobin 29.6 pg (28.0-33.3); Mean Corpuscular Volume 91.5 fL (83.0-100.0); Mean Platelet Volume 10.6 fL (9.4-12.4); Monocytes # 0.6 K/mcL (0.0-1.3); Monocytes % 10.6 %; Neutrophils # 3.3 K/mcL (1.6-8.9); Platelet Count 200 K/mcL (140-400); Red Blood Count 3.07 M/mcL (3.82-4.97); Red Cell Distribution Width 15.1 % (11.5-14.5); Segmented Neutrophils % 58.9 %; White Blood Count 5.7 K/mcL (4.3-11.1)
[2020-08-14 03:34] LABS: Calcium 8.7 mg/dL (8.6-10.3); Potassium 4.2 mEq/L (3.5-5.1)
[2020-08-14] MEDS: Pantoprazole 40 MG VIAL IVP SCH ×2 (05:13→17:30)
[2020-08-14] MEDS: Ondansetron 4 MG/2 ML VIAL IVP SCH ×4 (05:30→23:19)
[2020-08-14] MEDS: Menthol 1 EACH LOZENGE PO PRN ×3 (05:31→16:16)
[2020-08-14] MEDS: Metoprolol XL (24 HR) Succ 25 MG TAB.ER.24H PO SCH (09:51)
[2020-08-14] MEDS: Isosorbide MONOnitrate (24 HR) 30 MG TAB.ER.24H PO SCH (09:52)
[2020-08-14] MEDS: Fluticasone Propionate Nasal 50 MCG/SPRAY BOTTLE NS SCH (10:19)
[2020-08-14] MEDS: Insulin LISPRO 300 UNITS/3 ML VIAL SUBQ SCH ×4 (11:26→21:00)
[2020-08-14] MEDS: Sucralfate 1 GM TABLET PO SCH ×2 (20:51→21:00)
[2020-08-14] MEDS: Insulin DETEMIR 100 UNIT/ML X5UNITS SUBQ SCH (21:00)
[2020-08-15 03:14] LABS: Bacteria,Urine Few per hpf (None-Few); Bilirubin,Urine Negative (Negative); Blood,Urine Negative (Negative); Clarity,Urine Clear (Clear); Color,Urine Colorless (Yellow); Glucose,Urine (UA) >=1000 mg/dL (Normal); Ketones,Urine Negative (Negative); Leukocyte Esterase,Urine Large (Negative); Mucus,Urine Few per lpf (None-Few); Nitrite,Urine Negative (Negative); PH,Urine 5.5 pH Units (5.0-8.0); Protein,Urine Negative (Neg-Trace); Specific Gravity,Urine 1.014 (1.010-1.025); Squamous Epithelial Cell,Urine Few per hpf (None-Few); Urobilinogen,Urine Normal (Normal)
[2020-08-15 03:48] LABS: Basophils % 0.3 %; Eosinophils # 0.3 K/mcL (0.0-0.6); Eosinophils % 4.5 %; Hematocrit 29.1 % (35.3-44.9); Hemoglobin 9.5 g/dL (11.5-15.4); Immature Granulocytes % 2.1 % (0-4); Lymphocytes # 1.3 K/mcL (0.6-4.6); Lymphocytes % 21.6 %; Mean Corpuscular HGB Conc 32.6 g/dL (31.6-35.5); Mean Corpuscular Hemoglobin 29.5 pg (28.0-33.3); Mean Corpuscular Volume 90.4 fL (83.0-100.0); Mean Platelet Volume 10.8 fL (9.4-12.4); Monocytes # 0.7 K/mcL (0.0-1.3); Monocytes % 11.1 %; Neutrophils # 3.7 K/mcL (1.6-8.9); Platelet Count 213 K/mcL (140-400); Red Blood Count 3.22 M/mcL (3.82-4.97); Red Cell Distribution Width 15.1 % (11.5-14.5); Segmented Neutrophils % 60.4 %; White Blood Count 6.1 K/mcL (4.3-11.1)
[2020-08-15 04:01] LABS: Calcium 8.9 mg/dL (8.6-10.3); Potassium 4.3 mEq/L (3.5-5.1)
[2020-08-15] MEDS: Pantoprazole 40 MG VIAL IVP SCH (05:20)
[2020-08-15] MEDS: Ondansetron 4 MG/2 ML VIAL IVP SCH ×2 (05:20→11:19)
[2020-08-15] MEDS ORDERED: 0.9 % Sodium Chloride 1,000 ML IVC SCH (07:45)
[2020-08-15] MEDS: Metoprolol XL (24 HR) Succ 25 MG TAB.ER.24H PO SCH (09:13)
[2020-08-15] MEDS: Isosorbide MONOnitrate (24 HR) 30 MG TAB.ER.24H PO SCH (09:13)
[2020-08-15] MEDS: cefTRIAXone 1,000 MG in Water for inj. (sterile) 10 ML IVP SCH (09:13)
[2020-08-15] MEDS: Insulin LISPRO 300 UNITS/3 ML VIAL SUBQ SCH ×4 (09:16→21:00)
[2020-08-15] MEDS: Fluticasone Propionate Nasal 50 MCG/SPRAY BOTTLE NS SCH (09:17)
[2020-08-15] MEDS: Benzonatate 100 MG CAPSULE PO PRN ×2 (09:47→21:02)
[2020-08-15] MEDS ORDERED: Ondansetron 4 MG/2 ML VIAL IVP PRN (13:35)
[2020-08-15] MEDS: Insulin DETEMIR 100 UNIT/ML X5UNITS SUBQ SCH (20:59)
[2020-08-15] MEDS: Sucralfate 1 GM TABLET PO SCH (20:59)
[2020-08-16 01:36] LABS: Basophils % 0.4 %; Eosinophils # 0.2 K/mcL (0.0-0.6); Eosinophils % 3.3 %; Hematocrit 28.1 % (35.3-44.9); Immature Granulocytes % 1.6 % (0-4); Lymphocytes # 1.4 K/mcL (0.6-4.6); Lymphocytes % 27.8 %; Mean Corpuscular Hemoglobin 29.3 pg (28.0-33.3); Mean Corpuscular Volume 91.5 fL (83.0-100.0); Mean Platelet Volume 10.5 fL (9.4-12.4); Monocytes # 0.7 K/mcL (0.0-1.3); Monocytes % 14.6 %; Neutrophils # 2.5 K/mcL (1.6-8.9); Platelet Count 181 K/mcL (140-400); Red Blood Count 3.07 M/mcL (3.82-4.97); Red Cell Distribution Width 15.3 % (11.5-14.5); Segmented Neutrophils % 52.3 %; White Blood Count 4.9 K/mcL (4.3-11.1)
[2020-08-16 01:56] LABS: Calcium 8.5 mg/dL (8.6-10.3)
[2020-08-16] MEDS: Benzonatate 100 MG CAPSULE PO PRN (05:29)
[2020-08-16 07:21] VITALS: BP 178/69
[2020-08-16] MEDS: Metoprolol XL (24 HR) Succ 25 MG TAB.ER.24H PO SCH (08:16)
[2020-08-16] MEDS: cefTRIAXone 1,000 MG in Water for inj. (sterile) 10 ML IVP SCH (08:18)
[2020-08-16] MEDS: Isosorbide MONOnitrate (24 HR) 30 MG TAB.ER.24H PO SCH (08:18)
[2020-08-16] MEDS: Fluticasone Propionate Nasal 50 MCG/SPRAY BOTTLE NS SCH (08:19)
[2020-08-16] MEDS: Insulin LISPRO 300 UNITS/3 ML VIAL SUBQ SCH (08:19)
[2020-08-16] MEDS ORDERED: Aspirin 81 MG TAB.CHEW PO SCH (09:00)
== END 2020-08-16 11:03 | disposition hospice, home (50) | DRG 377 ==
LOC: 2ANU 01:39 → EMEROOARM 01:39 → SUATTDRO 06:12 → 2ANU 06:55
PROVIDERS: ADMIT Internal Medicine; ATTEND Internal Medicine

== ENCOUNTER 2020-08-19 21:57 | Inpatient (IN) ==
[2020-08-19] MEDS ORDERED: Isovue-370 500 ML BOTTLE IVP ONE (22:44)
[2020-08-19 23:26] LABS: Basophils % 0.2 %; Eosinophils # 0.1 K/mcL (0.0-0.6); Eosinophils % 1.4 %; Hematocrit 28.9 % (35.3-44.9); Lymphocytes # 1.1 K/mcL (0.6-4.6); Lymphocytes % 22.1 %; Mean Corpuscular HGB Conc 31.1 g/dL (31.6-35.5); Mean Corpuscular Hemoglobin 28.7 pg (28.0-33.3); Mean Platelet Volume 9.9 fL (9.4-12.4); Monocytes # 0.5 K/mcL (0.0-1.3); Monocytes % 10.7 %; Neutrophils # 3.1 K/mcL (1.6-8.9); Platelet Count 195 K/mcL (140-400); Red Blood Count 3.14 M/mcL (3.82-4.97); Red Cell Distribution Width 15.8 % (11.5-14.5); Segmented Neutrophils % 64.6 %; White Blood Count 4.8 K/mcL (4.3-11.1)
[2020-08-19 23:38] LABS: Prothrombin Time 12.1 Seconds (9.4-12.1)
[2020-08-19 23:41] LABS: Activated Partial Thrombo Time 30.6 Seconds (26.0-36.0)
[2020-08-19 23:48] LABS: Alanine Aminotransferase 14 Units/L (7-52); Albumin/Globulin Ratio 0.9 (1.1-2.2); Alkaline Phosphatase 116 Units/L (34-104); Aspartate Amino Transferase 26 Units/L (13-39); BUN/Creatinine Ratio 18 (6-26); Bilirubin,Indirect 0.3 mg/dL (0.0-1.0); Bilirubin,Total 0.3 mg/dL (0.3-1.0); Blood Urea Nitrogen 18 mg/dL (8-23); Calcium 8.4 mg/dL (8.6-10.3); Carbon Dioxide 26 mEq/L (23-29); Chloride 100 mEq/L (98-107); Globulin 3.2 g/dL (2.4-3.5); Glucose 121 mg/dL (70-105); Magnesium 1.6 mg/dL (1.6-2.6); Osmolality,Calculated 283 (280-300); Phosphorous 2.9 mg/dL (2.7-4.5); Potassium 3.6 mEq/L (3.5-5.1); Sodium 135 mEq/L (136-145); Total Protein 6.2 g/dL (6.4-8.9); Troponin I 0.06 ng/mL (< 0.04); eGFR For African Americans > 60 (> 60); eGFR For Non-African Americans 53 (> 60)
[2020-08-20] MEDS ORDERED: Vancomycin 1,750 MG/517.5 ML IV.SOLN IVPB ONE
[2020-08-20] MEDS ORDERED: 0.9 % Sodium Chloride 500 ML IVC ONE ×2 (00:01→22:02)
[2020-08-20] MEDS ORDERED: Cefepime HCl 1,000 MG in 0.9 % Sodium Chloride Mini Bag 100 ML IVPB ONE (00:01)
[2020-08-20] MEDS ORDERED: MetroNIDAZOLE 500 MG/100 ML 500 MG/100 ML BAG IVPB ONE (00:01)
[2020-08-20 00:16] LABS: Adenovirus Not Detected (Not Detect); Bordetella Pertussis Not Detected (Not Detect); Chlamydophila pneumoniae Not Detected (Not Detect); Coronavirus 229E Not Detected (Not Detect); Coronavirus HKU1 Not Detected (Not Detect); Coronavirus NL63 Not Detected (Not Detect); Coronavirus OC43 Not Detected (Not Detect); Human Metapneumovirus Not Detected (Not Detect); Human Rhinovirus/Enterovirus Not Detected (Not Detect); Influenza A Subtype 2009 H1 Not Detected (Not Detect); Influenza B Not Detected (Not Detect); Mycoplasma pneumoniae Not Detected (Not Detect); Parainfluenza Virus 1 Not Detected (Not Detect); Parainfluenza Virus 2 Not Detected (Not Detect); Parainfluenza Virus 3 Not Detected (Not Detect); Parainfluenza Virus 4 Not Detected (Not Detect); Respiratory Syncytial Virus Not Detected (Not Detect)
[2020-08-20 00:19] LABS: SARS-CoV-2 DETECTED (Not Detect)
[2020-08-20 00:23] LABS: Bacteria,Urine Many per hpf (None-Few); Bilirubin,Urine Negative (Negative); Blood,Urine Trace (Negative); Clarity,Urine Turbid (Clear); Color,Urine Yellow (Yellow); Glucose,Urine (UA) 200 mg/dL (Normal); Hyaline Casts,Urine Moderate per lpf (None Seen); Ketones,Urine Trace mg/dL (Negative); Leukocyte Esterase,Urine Large (Negative); Mucus,Urine Few per lpf (None-Few); Nitrite,Urine Negative (Negative); PH,Urine 5.5 pH Units (5.0-8.0); Protein,Urine 30 mg/dL (Neg-Trace); Specific Gravity,Urine 1.028 (1.010-1.025); Squamous Epithelial Cell,Urine Many per hpf (None-Few); Urobilinogen,Urine Normal (Normal); WBC,Urine 30-50 per hpf (0-3)
[2020-08-20] MEDS ORDERED: Naloxone 0.4 MG/ML INJ IVP PRN (01:44)
[2020-08-20] MEDS ORDERED: Ondansetron 4 MG/2 ML VIAL IVP PRN (01:55)
[2020-08-20] MEDS ORDERED: Ipratropium/Albuterol Neb 3 ML IH PRN (01:57)
[2020-08-20] MEDS ORDERED: D5% in Water 1,000 ML IVC PRN (03:13)
[2020-08-20] MEDS ORDERED: Dextrose Gel 15 GM/37.5 ML TUBE PO PRN ×2 (03:13)
[2020-08-20] MEDS ORDERED: *HR* Dextrose 50 % in Water (Vial) 50 ML VIAL IVP PRN (03:13)
[2020-08-20 03:50] LABS: Basophils % 0.2 %; Eosinophils # 0.1 K/mcL (0.0-0.6); Eosinophils % 1.5 %; Hematocrit 29.5 % (35.3-44.9); Hemoglobin 9.5 g/dL (11.5-15.4); Immature Granulocytes % 1.5 % (0-4); Lymphocytes # 1.2 K/mcL (0.6-4.6); Lymphocytes % 29.4 %; Mean Corpuscular HGB Conc 32.2 g/dL (31.6-35.5); Mean Corpuscular Hemoglobin 29.4 pg (28.0-33.3); Mean Corpuscular Volume 91.3 fL (83.0-100.0); Mean Platelet Volume 10.1 fL (9.4-12.4); Monocytes # 0.4 K/mcL (0.0-1.3); Monocytes % 10.4 %; Neutrophils # 2.4 K/mcL (1.6-8.9); Platelet Count 184 K/mcL (140-400); Red Blood Count 3.23 M/mcL (3.82-4.97); Red Cell Distribution Width 15.6 % (11.5-14.5); White Blood Count 4.1 K/mcL (4.3-11.1)
[2020-08-20] MEDS ORDERED: Vancomycin 1,750 MG in 0.9 % Sodium Chloride 250 ML IVPB SCH (04:00)
[2020-08-20 04:11] LABS: BUN/Creatinine Ratio 18 (6-26); Blood Urea Nitrogen 16 mg/dL (8-23); Calcium 8.1 mg/dL (8.6-10.3); Carbon Dioxide 28 mEq/L (23-29); Chloride 103 mEq/L (98-107); Glucose 51 mg/dL (70-105); Osmolality,Calculated 285 (280-300); Potassium 3.4 mEq/L (3.5-5.1); Sodium 138 mEq/L (136-145); eGFR For African Americans > 60 (> 60); eGFR For Non-African Americans 60 (> 60)
[2020-08-20 04:12] LABS: Magnesium 1.6 mg/dL (1.6-2.6)
[2020-08-20 04:18] LABS: Troponin I 0.05 ng/mL (< 0.04)
[2020-08-20] MEDS ORDERED: Cefepime HCl 2,000 MG in Water for inj. (sterile) 20 ML IVP SCH (06:00)
[2020-08-20] MEDS: Ipratropium 1 PUFF INHALER IH SCH ×5 (08:23→22:45)
[2020-08-20] MEDS: Isosorbide MONOnitrate (24 HR) 30 MG TAB.ER.24H PO SCH (08:31)
[2020-08-20] MEDS: Loratadine 10 MG TABLET PO SCH (08:31)
[2020-08-20] MEDS: Aspirin 81 MG TAB.CHEW PO SCH (08:31)
[2020-08-20] MEDS: Metoprolol XL (24 HR) Succ 25 MG TAB.ER.24H PO SCH (08:31)
[2020-08-20] MEDS: Insulin LISPRO 300 UNITS/3 ML VIAL SUBQ SCH ×3 (08:32→17:04)
[2020-08-20] MEDS ORDERED: *HR* Enoxaparin 30 MG/0.3 ML SYRINGE SQ SCH (09:00)
[2020-08-20 09:34] LABS: Fibrinogen 424 mg/dL (169-393)
[2020-08-20 09:35] LABS: D-Dimer 862 ng/mLFEU (0-500)
[2020-08-20] MEDS: *HR* Enoxaparin 40 MG/0.4 ML SYRINGE SQ SCH (09:43)
[2020-08-20] MEDS ORDERED: Budesonide/Formoterol 80/4.5 1 PUFF INH IH SCH (10:00)
[2020-08-20] MEDS ORDERED: Cefepime HCl 1,000 MG in Water for inj. (sterile) 10 ML IVP SCH (18:00)
[2020-08-20] MEDS ORDERED: Insulin LISPRO 300 UNITS/3 ML VIAL SUBQ SCH (21:00)
[2020-08-20] MEDS: Ondansetron 4 MG/2 ML VIAL IVP PRN (21:40)
[2020-08-20] MEDS: Sucralfate 1 GM TABLET PO SCH (21:40)
[2020-08-21] MEDS ORDERED: Vancomycin 1,750 MG/517.5 ML IV.SOLN IVPB SCH
[2020-08-21] MEDS: *HR* Metoprolol 5 MG/5 ML VIAL IVP PRN ×2 (00:08→06:14)
[2020-08-21] MEDS: Ipratropium 1 PUFF INHALER IH SCH ×6 (04:34→22:59)
[2020-08-21 06:29] LABS: Basophils % 0.4 %; Eosinophils # 0.2 K/mcL (0.0-0.6); Eosinophils % 3.1 %; Hematocrit 28.8 % (35.3-44.9); Immature Granulocytes % 1.4 % (0-4); Lymphocytes # 1.3 K/mcL (0.6-4.6); Lymphocytes % 25.4 %; Mean Corpuscular HGB Conc 31.3 g/dL (31.6-35.5); Mean Corpuscular Hemoglobin 28.8 pg (28.0-33.3); Mean Corpuscular Volume 92.3 fL (83.0-100.0); Mean Platelet Volume 10.9 fL (9.4-12.4); Monocytes # 0.5 K/mcL (0.0-1.3); Monocytes % 10.1 %; Neutrophils # 3.1 K/mcL (1.6-8.9); Platelet Count 167 K/mcL (140-400); Red Blood Count 3.12 M/mcL (3.82-4.97); Red Cell Distribution Width 15.9 % (11.5-14.5); Segmented Neutrophils % 59.6 %; White Blood Count 5.2 K/mcL (4.3-11.1)
[2020-08-21 06:41] LABS: Fibrinogen 402 mg/dL (169-393)
[2020-08-21 06:43] LABS: D-Dimer 914 ng/mLFEU (0-500)
[2020-08-21 07:08] LABS: % Iron Saturation 12 % (15-50); Alanine Aminotransferase 13 Units/L (7-52); Albumin 2.8 g/dL (3.5-5.7); Alkaline Phosphatase 105 Units/L (34-104); Aspartate Amino Transferase 25 Units/L (13-39); BUN/Creatinine Ratio 22 (6-26); Bilirubin,Direct 0.1 mg/dL (0.0-0.2); Bilirubin,Indirect 0.2 mg/dL (0.0-1.0); Bilirubin,Total 0.3 mg/dL (0.3-1.0); Blood Urea Nitrogen 23 mg/dL (8-23); Calcium 7.8 mg/dL (8.6-10.3); Carbon Dioxide 22 mEq/L (23-29); Chloride 101 mEq/L (98-107); Globulin 2.9 g/dL (2.4-3.5); Glucose 371 mg/dL (70-105); Iron 27 mcg/dL (50-170); Magnesium 1.6 mg/dL (1.6-2.6); Osmolality,Calculated 295 (280-300); Phosphorous 3.4 mg/dL (2.7-4.5); Potassium 4.7 mEq/L (3.5-5.1); Sodium 133 mEq/L (136-145); Total Protein 5.7 g/dL (6.4-8.9); Transferrin 165 mg/dL (203-362); eGFR For African Americans > 60 (> 60); eGFR For Non-African Americans 52 (> 60)
[2020-08-21 07:15] LABS: Ferritin 193 ng/mL (10-120)
[2020-08-21 07:17] LABS: Folate 8.7 ng/mL (3.0-16.0)
[2020-08-21 07:19] LABS: Vitamin B12 > 1500 pg/mL (250-1100)
[2020-08-21 08:04] LABS: Estimated Average Glucose 206 mg/dl; Hemoglobin A1C 8.8 %
[2020-08-21] MEDS: Insulin LISPRO 300 UNITS/3 ML VIAL SUBQ SCH ×4 (08:15→16:56)
[2020-08-21] MEDS: *HR* Enoxaparin 40 MG/0.4 ML SYRINGE SQ SCH ×2 (08:17→21:10)
[2020-08-21] MEDS: Metoprolol XL (24 HR) Succ 25 MG TAB.ER.24H PO SCH (08:20)
[2020-08-21] MEDS: Loratadine 10 MG TABLET PO SCH (08:20)
[2020-08-21] MEDS: Aspirin 81 MG TAB.CHEW PO SCH (08:20)
[2020-08-21] MEDS: Isosorbide MONOnitrate (24 HR) 30 MG TAB.ER.24H PO SCH (08:20)
[2020-08-21] MEDS ORDERED: Insulin DETEMIR 100 UNIT/ML X5UNITS SUBQ SCH (09:00)
[2020-08-21] MEDS ORDERED: Insulin LISPRO 300 UNITS/3 ML VIAL SUBQ SCH (21:00)
[2020-08-21] MEDS: Sucralfate 1 GM TABLET PO SCH (21:10)
[2020-08-21] MEDS: Insulin DETEMIR 100 UNIT/ML X5UNITS SUBQ SCH (21:10)
[2020-08-22] MEDS: Ondansetron 4 MG/2 ML VIAL IVP PRN ×3 (03:31→22:00)
[2020-08-22] MEDS: Ipratropium 1 PUFF INHALER IH SCH ×6 (03:36→23:09)
[2020-08-22 06:25] LABS: Basophils % 0.2 %; Eosinophils # 0.2 K/mcL (0.0-0.6); Immature Granulocytes % 0.7 % (0-4); Lymphocytes % 23.5 %; Mean Corpuscular HGB Conc 32.1 g/dL (31.6-35.5); Mean Corpuscular Hemoglobin 29.3 pg (28.0-33.3); Mean Corpuscular Volume 91.2 fL (83.0-100.0); Mean Platelet Volume 10.4 fL (9.4-12.4); Monocytes # 0.4 K/mcL (0.0-1.3); Monocytes % 8.4 %; Neutrophils # 2.7 K/mcL (1.6-8.9); Platelet Count 152 K/mcL (140-400); Red Blood Count 3.07 M/mcL (3.82-4.97); Red Cell Distribution Width 15.7 % (11.5-14.5); Segmented Neutrophils % 63.2 %; White Blood Count 4.3 K/mcL (4.3-11.1)
[2020-08-22 06:40] LABS: Fibrinogen 424 mg/dL (169-393)
[2020-08-22 06:43] LABS: BUN/Creatinine Ratio 26 (6-26); Blood Urea Nitrogen 22 mg/dL (8-23); Calcium 8.1 mg/dL (8.6-10.3); Carbon Dioxide 27 mEq/L (23-29); Chloride 100 mEq/L (98-107); Glucose 272 mg/dL (70-105); Magnesium 1.7 mg/dL (1.6-2.6); Osmolality,Calculated 289 (280-300); Potassium 4.5 mEq/L (3.5-5.1); Sodium 133 mEq/L (136-145); eGFR For African Americans > 60 (> 60); eGFR For Non-African Americans > 60 (> 60)
[2020-08-22 06:44] LABS: D-Dimer 3930 ng/mLFEU (0-500)
[2020-08-22 06:55] LABS: Thyroid Stimulating Hormone 1.839 mcIU/mL (0.340-5.600)
[2020-08-22] MEDS: Isosorbide MONOnitrate (24 HR) 30 MG TAB.ER.24H PO SCH (09:12)
[2020-08-22] MEDS: Insulin DETEMIR 100 UNIT/ML X5UNITS SUBQ SCH ×2 (09:12→20:28)
[2020-08-22] MEDS: Loratadine 10 MG TABLET PO SCH (09:12)
[2020-08-22] MEDS: Insulin LISPRO 300 UNITS/3 ML VIAL SUBQ SCH ×3 (09:13→17:51)
[2020-08-22] MEDS: *HR* Enoxaparin 40 MG/0.4 ML SYRINGE SQ SCH ×2 (09:13→20:28)
[2020-08-22] MEDS: Metoprolol XL (24 HR) Succ 25 MG TAB.ER.24H PO SCH (09:13)
[2020-08-22] MEDS: Aspirin 81 MG TAB.CHEW PO SCH (09:13)
[2020-08-22] MEDS: Sucralfate 1 GM TABLET PO SCH (20:28)
[2020-08-23] MEDS: Ipratropium 1 PUFF INHALER IH SCH ×6 (03:51→22:53)
[2020-08-23 05:33] LABS: Basophils % 0.2 %; Eosinophils # 0.1 K/mcL (0.0-0.6); Eosinophils % 1.7 %; Hematocrit 28.6 % (35.3-44.9); Hemoglobin 9.2 g/dL (11.5-15.4); Immature Granulocytes % 1.7 % (0-4); Lymphocytes % 25.3 %; Mean Corpuscular HGB Conc 32.2 g/dL (31.6-35.5); Mean Corpuscular Hemoglobin 29.1 pg (28.0-33.3); Mean Corpuscular Volume 90.5 fL (83.0-100.0); Mean Platelet Volume 11.1 fL (9.4-12.4); Monocytes # 0.4 K/mcL (0.0-1.3); Neutrophils # 2.6 K/mcL (1.6-8.9); Platelet Count 157 K/mcL (140-400); Red Blood Count 3.16 M/mcL (3.82-4.97); Red Cell Distribution Width 15.5 % (11.5-14.5); Segmented Neutrophils % 62.1 %; White Blood Count 4.1 K/mcL (4.3-11.1)
[2020-08-23 05:52] LABS: Alanine Aminotransferase 13 Units/L (7-52); Albumin 2.9 g/dL (3.5-5.7); Albumin/Globulin Ratio 0.9 (1.1-2.2); Alkaline Phosphatase 112 Units/L (34-104); Aspartate Amino Transferase 28 Units/L (13-39); BUN/Creatinine Ratio 19 (6-26); Bilirubin,Indirect 0.3 mg/dL (0.0-1.0); Bilirubin,Total 0.3 mg/dL (0.3-1.0); Blood Urea Nitrogen 16 mg/dL (8-23); Calcium 8.6 mg/dL (8.6-10.3); Carbon Dioxide 29 mEq/L (23-29); Chloride 100 mEq/L (98-107); Globulin 3.3 g/dL (2.4-3.5); Glucose 157 mg/dL (70-105); Magnesium 1.7 mg/dL (1.6-2.6); Osmolality,Calculated 282 (280-300); Potassium 4.5 mEq/L (3.5-5.1); Sodium 134 mEq/L (136-145); Total Protein 6.2 g/dL (6.4-8.9); eGFR For African Americans > 60 (> 60); eGFR For Non-African Americans > 60 (> 60)
[2020-08-23] MEDS: Insulin LISPRO 300 UNITS/3 ML VIAL SUBQ SCH ×4 (09:53→17:18)
[2020-08-23] MEDS: Isosorbide MONOnitrate (24 HR) 30 MG TAB.ER.24H PO SCH (09:54)
[2020-08-23] MEDS: Aspirin 81 MG TAB.CHEW PO SCH (09:54)
[2020-08-23] MEDS: Loratadine 10 MG TABLET PO SCH (09:54)
[2020-08-23] MEDS: Insulin DETEMIR 100 UNIT/ML X5UNITS SUBQ SCH ×2 (09:54→20:20)
[2020-08-23] MEDS: *HR* Enoxaparin 40 MG/0.4 ML SYRINGE SQ SCH ×2 (09:54→20:08)
[2020-08-23] MEDS: Metoprolol XL (24 HR) Succ 25 MG TAB.ER.24H PO SCH (09:54)
[2020-08-23] MEDS: Ondansetron 4 MG/2 ML VIAL IVP PRN ×2 (14:47→20:09)
[2020-08-23] MEDS: Benzonatate 100 MG CAPSULE PO PRN (14:47)
[2020-08-23] MEDS: Acetaminophen 325 MG TABLET PO PRN (20:08)
[2020-08-23] MEDS: Sucralfate 1 GM TABLET PO SCH (20:08)
[2020-08-24 02:03] LABS: Basophils % 0.6 %; Eosinophils # 0.1 K/mcL (0.0-0.6); Eosinophils % 2.2 %; Hematocrit 27.9 % (35.3-44.9); Hemoglobin 8.6 g/dL (11.5-15.4); Immature Granulocytes % 1.9 % (0-4); Lymphocytes # 0.9 K/mcL (0.6-4.6); Lymphocytes % 27.1 %; Mean Corpuscular HGB Conc 30.8 g/dL (31.6-35.5); Mean Corpuscular Hemoglobin 28.2 pg (28.0-33.3); Mean Corpuscular Volume 91.5 fL (83.0-100.0); Mean Platelet Volume 10.9 fL (9.4-12.4); Monocytes # 0.3 K/mcL (0.0-1.3); Monocytes % 10.3 %; Neutrophils # 1.9 K/mcL (1.6-8.9); Platelet Count 142 K/mcL (140-400); Red Blood Count 3.05 M/mcL (3.82-4.97); Red Cell Distribution Width 15.6 % (11.5-14.5); Segmented Neutrophils % 57.9 %; White Blood Count 3.2 K/mcL (4.3-11.1)
[2020-08-24 02:20] LABS: BUN/Creatinine Ratio 18 (6-26); Blood Urea Nitrogen 18 mg/dL (8-23); Calcium 8.3 mg/dL (8.6-10.3); Carbon Dioxide 29 mEq/L (23-29); Chloride 99 mEq/L (98-107); Glucose 102 mg/dL (70-105); Magnesium 1.7 mg/dL (1.6-2.6); Osmolality,Calculated 276 (280-300); Potassium 4.3 mEq/L (3.5-5.1); Sodium 132 mEq/L (136-145); eGFR For African Americans > 60 (> 60); eGFR For Non-African Americans 53 (> 60)
[2020-08-24] MEDS: Ondansetron 4 MG/2 ML VIAL IVP PRN (02:26)
[2020-08-24] MEDS: Melatonin 3 MG TABLET PO PRN (02:28)
[2020-08-24] MEDS: Ipratropium 1 PUFF INHALER IH SCH ×6 (04:38→23:14)
[2020-08-24] MEDS: Insulin LISPRO 300 UNITS/3 ML VIAL SUBQ SCH ×7 (07:23→20:55)
[2020-08-24] MEDS: *HR* Enoxaparin 40 MG/0.4 ML SYRINGE SQ SCH ×2 (08:11→20:30)
[2020-08-24] MEDS: Metoprolol XL (24 HR) Succ 25 MG TAB.ER.24H PO SCH (08:11)
[2020-08-24] MEDS: Isosorbide MONOnitrate (24 HR) 30 MG TAB.ER.24H PO SCH (08:11)
[2020-08-24] MEDS: Aspirin 81 MG TAB.CHEW PO SCH (08:11)
[2020-08-24] MEDS: Loratadine 10 MG TABLET PO SCH (08:14)
[2020-08-24] MEDS: Insulin DETEMIR 100 UNIT/ML X5UNITS SUBQ SCH ×2 (08:14→20:30)
[2020-08-24] MEDS: Acetaminophen 325 MG TABLET PO PRN (11:31)
[2020-08-24] MEDS: Benzonatate 100 MG CAPSULE PO PRN ×2 (11:31→20:48)
[2020-08-24] MEDS ORDERED: Insulin LISPRO 300 UNITS/3 ML VIAL SUBQ ONE (17:00)
[2020-08-24 17:01] LABS: Campylobacter by PCR Not detected (Not detect)
[2020-08-24 17:02] LABS: C.difficile Toxin A/B Gene PCR DETECTED (Not detect); Plesiomonas shigelloides PCR Not detected (Not detect); Salmonella PCR Not detected (Not detect); Vibrio PCR Not detected (Not detect); Vibrio cholerae PCR Not detected (Not detect)
[2020-08-24 17:03] LABS: Adenovirus F 40/41 PCR Not detected (Not detect); Astrovirus PCR Not detected (Not detect); Cryptosporidium by PCR Not detected (Not detect); Cyclospora cayetanensis PCR Not detected (Not detect); E. coli O157 by PCR Not detected (Not detect); Entamoeba histolytica PCR Not detected (Not detect); Enteroaggregative E.coli(EAEC) Not detected (Not detect); Enteropathogenic E.coli(EPEC) Not detected (Not detect); Enterotoxigenic E.coli (ETEC) Not detected (Not detect); Giardia lamblia PCR Not detected (Not detect); Norovirus GI/GII PCR Not detected (Not detect); Rotavirus A PCR Not detected (Not detect); Sapovirus PCR Not detected (Not detect); Shig/EnteroinvasiveE coli EIEC Not detected (Not detect); Shigalike tox-prod E coli STEC Not detected (Not detect); Yersinia enterocolitica PCR Not detected (Not detect)
[2020-08-24] MEDS: Vancomycin Oral Soln 125 MG/2.5 ML UDC PO SCH ×2 (17:44→20:30)
[2020-08-24] MEDS: Sucralfate 1 GM TABLET PO SCH (20:30)
[2020-08-25] MEDS: Benzonatate 100 MG CAPSULE PO PRN ×2 (01:15→14:54)
[2020-08-25] MEDS: Ondansetron 4 MG/2 ML VIAL IVP PRN ×2 (01:20→04:32)
[2020-08-25] MEDS: Ipratropium 1 PUFF INHALER IH SCH ×6 (03:23→23:30)
[2020-08-25] MEDS: Acetaminophen 325 MG TABLET PO PRN ×2 (04:33→17:00)
[2020-08-25 04:42] LABS: Hematocrit 27.8 % (35.3-44.9); Hemoglobin 9.1 g/dL (11.5-15.4); Mean Corpuscular HGB Conc 32.7 g/dL (31.6-35.5); Mean Corpuscular Hemoglobin 29.1 pg (28.0-33.3); Mean Corpuscular Volume 88.8 fL (83.0-100.0); Mean Platelet Volume 10.8 fL (9.4-12.4); Platelet Count 173 K/mcL (140-400); Red Blood Count 3.13 M/mcL (3.82-4.97); Red Cell Distribution Width 15.4 % (11.5-14.5); White Blood Count 4.2 K/mcL (4.3-11.1)
[2020-08-25 05:03] LABS: BUN/Creatinine Ratio 22 (6-26); Blood Urea Nitrogen 22 mg/dL (8-23); Carbon Dioxide 27 mEq/L (23-29); Chloride 97 mEq/L (98-107); Glucose 153 mg/dL (70-105); Osmolality,Calculated 276 (280-300); Potassium 4.5 mEq/L (3.5-5.1); Sodium 130 mEq/L (136-145); eGFR For African Americans > 60 (> 60); eGFR For Non-African Americans 55 (> 60)
[2020-08-25] MEDS: *HR* Enoxaparin 40 MG/0.4 ML SYRINGE SQ SCH ×2 (08:14→20:47)
[2020-08-25] MEDS: Loratadine 10 MG TABLET PO SCH (08:14)
[2020-08-25] MEDS: Aspirin 81 MG TAB.CHEW PO SCH (08:14)
[2020-08-25] MEDS: Metoprolol XL (24 HR) Succ 25 MG TAB.ER.24H PO SCH (08:14)
[2020-08-25] MEDS: Isosorbide MONOnitrate (24 HR) 30 MG TAB.ER.24H PO SCH (08:15)
[2020-08-25] MEDS: Vancomycin Oral Soln 125 MG/2.5 ML UDC PO SCH ×4 (08:15→20:47)
[2020-08-25] MEDS: Insulin DETEMIR 100 UNIT/ML X5UNITS SUBQ SCH ×2 (08:15→20:47)
[2020-08-25] MEDS: Insulin LISPRO 300 UNITS/3 ML VIAL SUBQ SCH ×7 (08:18→20:45)
[2020-08-25] MEDS: Lactobacillus 1 EACH CAP.SPRINK PO SCH (20:47)
[2020-08-25] MEDS: Sucralfate 1 GM TABLET PO SCH (20:47)
[2020-08-26] MEDS: Benzonatate 100 MG CAPSULE PO PRN (01:55)
[2020-08-26 02:03] LABS: Hematocrit 29.4 % (35.3-44.9); Hemoglobin 9.5 g/dL (11.5-15.4); Mean Corpuscular HGB Conc 32.3 g/dL (31.6-35.5); Mean Corpuscular Volume 89.6 fL (83.0-100.0); Mean Platelet Volume 10.6 fL (9.4-12.4); Platelet Count 155 K/mcL (140-400); Red Blood Count 3.28 M/mcL (3.82-4.97); Red Cell Distribution Width 15.2 % (11.5-14.5); White Blood Count 4.6 K/mcL (4.3-11.1)
[2020-08-26 02:21] LABS: Calcium 8.3 mg/dL (8.6-10.3); Potassium 4.3 mEq/L (3.5-5.1)
[2020-08-26] MEDS: Ipratropium 1 PUFF INHALER IH SCH ×5 (03:57→20:24)
[2020-08-26] MEDS: Ondansetron 4 MG/2 ML VIAL IVP PRN ×3 (05:24→20:36)
[2020-08-26] MEDS ORDERED: 0.9 % Sodium Chloride 1,000 ML IVC SCH (07:45)
[2020-08-26] MEDS: Insulin LISPRO 300 UNITS/3 ML VIAL SUBQ SCH ×7 (10:04→20:07)
[2020-08-26] MEDS: Loratadine 10 MG TABLET PO SCH (10:05)
[2020-08-26] MEDS: Lactobacillus 1 EACH CAP.SPRINK PO SCH ×2 (10:05→20:12)
[2020-08-26] MEDS: Isosorbide MONOnitrate (24 HR) 30 MG TAB.ER.24H PO SCH (10:05)
[2020-08-26] MEDS: Metoprolol XL (24 HR) Succ 25 MG TAB.ER.24H PO SCH (10:05)
[2020-08-26] MEDS: Aspirin 81 MG TAB.CHEW PO SCH (10:05)
[2020-08-26] MEDS: *HR* Enoxaparin 40 MG/0.4 ML SYRINGE SQ SCH ×2 (10:06→20:13)
[2020-08-26] MEDS: Vancomycin Oral Soln 125 MG/2.5 ML UDC PO SCH ×4 (10:06→17:13)
[2020-08-26] MEDS: Insulin DETEMIR 100 UNIT/ML X5UNITS SUBQ SCH ×2 (10:11→20:13)
[2020-08-26] MEDS: Sucralfate 1 GM TABLET PO SCH (20:12)
[2020-08-27 01:43] LABS: Basophils % 0.4 %; Eosinophils % 0.6 %; Hematocrit 28.3 % (35.3-44.9); Hemoglobin 9.1 g/dL (11.5-15.4); Immature Granulocytes % 1.9 % (0-4); Lymphocytes # 1.3 K/mcL (0.6-4.6); Lymphocytes % 25.4 %; Mean Corpuscular HGB Conc 32.2 g/dL (31.6-35.5); Mean Corpuscular Hemoglobin 28.7 pg (28.0-33.3); Mean Corpuscular Volume 89.3 fL (83.0-100.0); Mean Platelet Volume 10.7 fL (9.4-12.4); Monocytes # 0.4 K/mcL (0.0-1.3); Monocytes % 6.9 %; Neutrophils # 3.4 K/mcL (1.6-8.9); Platelet Count 176 K/mcL (140-400); Red Blood Count 3.17 M/mcL (3.82-4.97); Red Cell Distribution Width 15.3 % (11.5-14.5); Segmented Neutrophils % 64.8 %; White Blood Count 5.2 K/mcL (4.3-11.1)
[2020-08-27 01:59] LABS: BUN/Creatinine Ratio 22 (6-26); Blood Urea Nitrogen 22 mg/dL (8-23); Calcium 7.9 mg/dL (8.6-10.3); Carbon Dioxide 26 mEq/L (23-29); Chloride 96 mEq/L (98-107); Glucose 137 mg/dL (70-105); Osmolality,Calculated 273 (280-300); Potassium 4.5 mEq/L (3.5-5.1); Sodium 129 mEq/L (136-145); eGFR For African Americans > 60 (> 60); eGFR For Non-African Americans 54 (> 60)
[2020-08-27 02:50] LABS: Platelet Estimate Normal (Normal)
[2020-08-27] MEDS: Ipratropium 1 PUFF INHALER IH SCH ×8 (04:01→23:25)
[2020-08-27] MEDS: Insulin LISPRO 300 UNITS/3 ML VIAL SUBQ SCH ×7 (08:31→22:09)
[2020-08-27] MEDS: Ondansetron 4 MG/2 ML VIAL IVP PRN (08:42)
[2020-08-27] MEDS: Metoprolol XL (24 HR) Succ 25 MG TAB.ER.24H PO SCH (08:44)
[2020-08-27] MEDS: Aspirin 81 MG TAB.CHEW PO SCH (08:44)
[2020-08-27] MEDS: Vancomycin Oral Soln 125 MG/2.5 ML UDC PO SCH ×4 (08:45→22:08)
[2020-08-27] MEDS: Lactobacillus 1 EACH CAP.SPRINK PO SCH ×2 (08:45→22:09)
[2020-08-27] MEDS: Isosorbide MONOnitrate (24 HR) 30 MG TAB.ER.24H PO SCH (08:45)
[2020-08-27] MEDS: *HR* Enoxaparin 40 MG/0.4 ML SYRINGE SQ SCH ×2 (08:45→22:09)
[2020-08-27] MEDS: Loratadine 10 MG TABLET PO SCH (08:45)
[2020-08-27] MEDS: Insulin DETEMIR 100 UNIT/ML X5UNITS SUBQ SCH ×2 (08:56→22:08)
[2020-08-27] MEDS ORDERED: Isovue-370 500 ML BOTTLE IVP ONE (09:48)
[2020-08-27] MEDS ORDERED: *HR* HYDROmorphone (PF) 1 MG/ML SYRINGE IVP ONE (11:10)
[2020-08-27] MEDS ORDERED: Gadolinium Contrast Agent (WT Based) IV PRN (11:12)
[2020-08-27] MEDS ORDERED: *HR* OxyCODONE/APAP 5/325 TABLET PO PRN (11:14)
[2020-08-27] MEDS: Sucralfate 1 GM TABLET PO SCH (22:09)
[2020-08-28 02:36] LABS: Basophils % 0.6 %; Eosinophils # 0.1 K/mcL (0.0-0.6); Eosinophils % 2.4 %; Hematocrit 28.2 % (35.3-44.9); Hemoglobin 8.7 g/dL (11.5-15.4); Immature Granulocytes % 3.3 % (0-4); Lymphocytes # 1.5 K/mcL (0.6-4.6); Lymphocytes % 27.6 %; Mean Corpuscular HGB Conc 30.9 g/dL (31.6-35.5); Mean Corpuscular Hemoglobin 27.7 pg (28.0-33.3); Mean Corpuscular Volume 89.8 fL (83.0-100.0); Mean Platelet Volume 10.3 fL (9.4-12.4); Monocytes # 0.5 K/mcL (0.0-1.3); Monocytes % 8.3 %; Neutrophils # 3.1 K/mcL (1.6-8.9); Nucleated Red Blood Cells 0.4 /100 WBC (0); Platelet Count 216 K/mcL (140-400); Red Blood Count 3.14 M/mcL (3.82-4.97); Red Cell Distribution Width 15.4 % (11.5-14.5); Segmented Neutrophils % 57.8 %; White Blood Count 5.4 K/mcL (4.3-11.1)
[2020-08-28 02:56] LABS: Alanine Aminotransferase 29 Units/L (7-52); Albumin 2.9 g/dL (3.5-5.7); Albumin/Globulin Ratio 0.8 (1.1-2.2); Alkaline Phosphatase 172 Units/L (34-104); Aspartate Amino Transferase 65 Units/L (13-39); BUN/Creatinine Ratio 20 (6-26); Bilirubin,Total 0.4 mg/dL (0.3-1.0); Blood Urea Nitrogen 19 mg/dL (8-23); Carbon Dioxide 25 mEq/L (23-29); Chloride 95 mEq/L (98-107); Globulin 3.6 g/dL (2.4-3.5); Glucose 153 mg/dL (70-105); Osmolality,Calculated 275 (280-300); Sodium 130 mEq/L (136-145); Total Protein 6.5 g/dL (6.4-8.9); eGFR For African Americans > 60 (> 60); eGFR For Non-African Americans 57 (> 60)
[2020-08-28 03:41] LABS: Platelet Estimate Normal (Normal)
[2020-08-28] MEDS: Ipratropium 1 PUFF INHALER IH SCH ×6 (03:52→23:45)
[2020-08-28] MEDS: *HR* Enoxaparin 40 MG/0.4 ML SYRINGE SQ SCH ×2 (10:50→21:22)
[2020-08-28] MEDS: Aspirin 81 MG TAB.CHEW PO SCH (10:51)
[2020-08-28] MEDS: Lactobacillus 1 EACH CAP.SPRINK PO SCH ×2 (10:51→21:21)
[2020-08-28] MEDS: Metoprolol XL (24 HR) Succ 25 MG TAB.ER.24H PO SCH (10:51)
[2020-08-28] MEDS: Isosorbide MONOnitrate (24 HR) 30 MG TAB.ER.24H PO SCH (10:51)
[2020-08-28] MEDS: Loratadine 10 MG TABLET PO SCH (10:51)
[2020-08-28] MEDS: Insulin LISPRO 300 UNITS/3 ML VIAL SUBQ SCH ×7 (10:52→21:12)
[2020-08-28] MEDS: Insulin DETEMIR 100 UNIT/ML X5UNITS SUBQ SCH ×2 (10:55→21:22)
[2020-08-28] MEDS: Vancomycin Oral Soln 125 MG/2.5 ML UDC PO SCH ×4 (11:30→21:22)
[2020-08-28] MEDS: dexAMETHasone 4 MG TABLET PO SCH (13:43)
[2020-08-28] MEDS: Sucralfate 1 GM TABLET PO SCH (21:21)
[2020-08-28] MEDS: Benzonatate 100 MG CAPSULE PO PRN (21:21)
[2020-08-28] MEDS: Sennosides 8.6 MG TABLET PO SCH (21:21)
[2020-08-28] MEDS: Melatonin 3 MG TABLET PO PRN (21:22)
[2020-08-29] MEDS: Ipratropium 1 PUFF INHALER IH SCH ×5 (04:08→20:33)
[2020-08-29] MEDS: dexAMETHasone 4 MG TABLET PO SCH (08:01)
[2020-08-29] MEDS: Isosorbide MONOnitrate (24 HR) 30 MG TAB.ER.24H PO SCH (08:01)
[2020-08-29] MEDS: Metoprolol XL (24 HR) Succ 25 MG TAB.ER.24H PO SCH (08:01)
[2020-08-29] MEDS: *HR* Enoxaparin 40 MG/0.4 ML SYRINGE SQ SCH ×2 (08:02→21:29)
[2020-08-29] MEDS: Insulin DETEMIR 100 UNIT/ML X5UNITS SUBQ SCH ×2 (08:02→21:32)
[2020-08-29] MEDS: Loratadine 10 MG TABLET PO SCH (08:02)
[2020-08-29] MEDS: Sennosides 8.6 MG TABLET PO SCH ×2 (08:02→21:30)
[2020-08-29] MEDS: Aspirin 81 MG TAB.CHEW PO SCH (08:02)
[2020-08-29] MEDS: Lactobacillus 1 EACH CAP.SPRINK PO SCH ×2 (08:02→21:30)
[2020-08-29] MEDS: Insulin LISPRO 300 UNITS/3 ML VIAL SUBQ SCH ×7 (08:03→21:31)
[2020-08-29] MEDS: Vancomycin Oral Soln 125 MG/2.5 ML UDC PO SCH ×4 (09:38→21:30)
[2020-08-29] MEDS ORDERED: Insulin Human Regular 20 UNIT in 0.9 % Sodium Chloride 10 ML IV ONE ×2 (11:51→15:35)
[2020-08-29] MEDS: Benzonatate 100 MG CAPSULE PO PRN (12:41)
[2020-08-29] MEDS ORDERED: Insulin DETEMIR 100 UNIT/ML X5UNITS SUBQ SCH (21:00)
[2020-08-29] MEDS: Sucralfate 1 GM TABLET PO SCH (21:30)
[2020-08-30] MEDS: Ipratropium 1 PUFF INHALER IH SCH ×9 (00:22→23:38)
[2020-08-30 07:17] LABS: Alanine Aminotransferase 21 Units/L (7-52); Albumin/Globulin Ratio 0.8 (1.1-2.2); Alkaline Phosphatase 161 Units/L (34-104); Aspartate Amino Transferase 29 Units/L (13-39); BUN/Creatinine Ratio 33 (6-26); Bilirubin,Total 0.3 mg/dL (0.3-1.0); Blood Urea Nitrogen 31 mg/dL (8-23); Calcium 8.6 mg/dL (8.6-10.3); Carbon Dioxide 28 mEq/L (23-29); Chloride 98 mEq/L (98-107); Globulin 3.9 g/dL (2.4-3.5); Glucose 232 mg/dL (70-105); Osmolality,Calculated 290 (280-300); Sodium 133 mEq/L (136-145); Total Protein 6.9 g/dL (6.4-8.9); eGFR For African Americans > 60 (> 60); eGFR For Non-African Americans 57 (> 60)
[2020-08-30] MEDS: Aspirin 81 MG TAB.CHEW PO SCH (08:43)
[2020-08-30] MEDS: Isosorbide MONOnitrate (24 HR) 30 MG TAB.ER.24H PO SCH (08:43)
[2020-08-30] MEDS: Insulin LISPRO 300 UNITS/3 ML VIAL SUBQ SCH ×6 (08:43→17:09)
[2020-08-30] MEDS: Metoprolol XL (24 HR) Succ 25 MG TAB.ER.24H PO SCH (08:43)
[2020-08-30] MEDS: Sennosides 8.6 MG TABLET PO SCH (08:43)
[2020-08-30] MEDS: dexAMETHasone 4 MG TABLET PO SCH (08:44)
[2020-08-30] MEDS: Lactobacillus 1 EACH CAP.SPRINK PO SCH (08:44)
[2020-08-30] MEDS: Loratadine 10 MG TABLET PO SCH (08:44)
[2020-08-30] MEDS: Vancomycin Oral Soln 125 MG/2.5 ML UDC PO SCH ×3 (08:45→17:09)
[2020-08-30] MEDS: *HR* Enoxaparin 40 MG/0.4 ML SYRINGE SQ SCH (08:45)
[2020-08-30] MEDS: Insulin DETEMIR 100 UNIT/ML X5UNITS SUBQ SCH (08:45)
[2020-08-30 08:53] LABS: Hematocrit 30.5 % (35.3-44.9); Hemoglobin 9.6 g/dL (11.5-15.4); Mean Corpuscular HGB Conc 31.5 g/dL (31.6-35.5); Mean Corpuscular Hemoglobin 28.2 pg (28.0-33.3); Mean Corpuscular Volume 89.4 fL (83.0-100.0); Mean Platelet Volume 10.5 fL (9.4-12.4); Platelet Count 370 K/mcL (140-400); Red Blood Count 3.41 M/mcL (3.82-4.97); Red Cell Distribution Width 15.1 % (11.5-14.5); White Blood Count 13.7 K/mcL (4.3-11.1)
[2020-08-30] MEDS: Ondansetron 4 MG/2 ML VIAL IVP PRN (09:49)
[2020-08-30] MEDS: Benzonatate 100 MG CAPSULE PO PRN (09:49)
[2020-08-30 09:51] LABS: Lymphocytes # 1.5 K/mcL (0.6-4.6); Monocytes # 0.4 K/mcL (0.0-1.3); Neutrophils # 11.8 K/mcL (1.6-8.9); Platelet Estimate Normal (Normal)
[2020-08-30 10:09] LABS: Reactive Lymphocytes Present (Not Present)
[2020-08-30] MEDS ORDERED: *HR* LORazepam 2 MG/ML VIAL IVP ONE (11:10)
[2020-08-30] MEDS ORDERED: Isovue-370 500 ML BOTTLE IVP ONE (11:11)
[2020-08-31] MEDS: Insulin LISPRO 300 UNITS/3 ML VIAL SUBQ SCH ×8 (00:20→22:57)
[2020-08-31] MEDS: Vancomycin Oral Soln 125 MG/2.5 ML UDC PO SCH ×5 (03:54→22:43)
[2020-08-31] MEDS: *HR* Enoxaparin 40 MG/0.4 ML SYRINGE SQ SCH ×3 (03:54→22:41)
[2020-08-31] MEDS: Sucralfate 1 GM TABLET PO SCH ×2 (03:55→22:41)
[2020-08-31] MEDS: Sennosides 8.6 MG TABLET PO SCH ×3 (03:55→22:41)
[2020-08-31] MEDS: Lactobacillus 1 EACH CAP.SPRINK PO SCH ×3 (03:57→22:41)
[2020-08-31] MEDS: *HR* LORazepam 2 MG/ML VIAL IVP PRN ×2 (03:57→22:41)
[2020-08-31] MEDS: Insulin DETEMIR 100 UNIT/ML X5UNITS SUBQ SCH ×3 (03:59→22:56)
[2020-08-31] MEDS: Ipratropium 1 PUFF INHALER IH SCH ×6 (04:28→23:00)
[2020-08-31 06:56] LABS: Hemoglobin 8.5 g/dL (11.5-15.4); Mean Corpuscular HGB Conc 30.4 g/dL (31.6-35.5); Mean Corpuscular Hemoglobin 27.7 pg (28.0-33.3); Mean Corpuscular Volume 91.2 fL (83.0-100.0); Mean Platelet Volume 10.8 fL (9.4-12.4); Platelet Count 349 K/mcL (140-400); Red Blood Count 3.07 M/mcL (3.82-4.97); Red Cell Distribution Width 15.1 % (11.5-14.5); White Blood Count 9.8 K/mcL (4.3-11.1)
[2020-08-31 07:15] LABS: Alanine Aminotransferase 19 Units/L (7-52); Albumin 2.8 g/dL (3.5-5.7); Albumin/Globulin Ratio 0.8 (1.1-2.2); Alkaline Phosphatase 142 Units/L (34-104); Aspartate Amino Transferase 27 Units/L (13-39); BUN/Creatinine Ratio 34 (6-26); Bilirubin,Total 0.4 mg/dL (0.3-1.0); Blood Urea Nitrogen 29 mg/dL (8-23); Calcium 8.5 mg/dL (8.6-10.3); Carbon Dioxide 29 mEq/L (23-29); Chloride 100 mEq/L (98-107); Globulin 3.4 g/dL (2.4-3.5); Glucose 165 mg/dL (70-105); Osmolality,Calculated 290 (280-300); Potassium 5.2 mEq/L (3.5-5.1); Sodium 135 mEq/L (136-145); Total Protein 6.2 g/dL (6.4-8.9); eGFR For African Americans > 60 (> 60); eGFR For Non-African Americans > 60 (> 60)
[2020-08-31 07:50] LABS: Lymphocytes # 2.2 K/mcL (0.6-4.6); Monocytes # 0.3 K/mcL (0.0-1.3); Neutrophils # 7.3 K/mcL (1.6-8.9)
[2020-08-31 07:52] LABS: Platelet Estimate Normal (Normal); Reactive Lymphocytes Present (Not Present)
[2020-08-31] MEDS: Furosemide 20 MG/2 ML VIAL IVP SCH (09:57)
[2020-08-31] MEDS: Aspirin 81 MG TAB.CHEW PO SCH (09:57)
[2020-08-31] MEDS: dexAMETHasone 4 MG TABLET PO SCH (09:57)
[2020-08-31] MEDS: Isosorbide MONOnitrate (24 HR) 30 MG TAB.ER.24H PO SCH (09:57)
[2020-08-31] MEDS: Metoprolol XL (24 HR) Succ 25 MG TAB.ER.24H PO SCH (09:58)
[2020-08-31] MEDS: Loratadine 10 MG TABLET PO SCH (09:58)
[2020-08-31] MEDS: Melatonin 3 MG TABLET PO PRN (22:41)
[2020-09-01] MEDS: Ipratropium 1 PUFF INHALER IH SCH ×3 (03:40→11:10)
[2020-09-01 06:51] VITALS: BP 170/86
[2020-09-01 07:12] LABS: Hematocrit 26.7 % (35.3-44.9); Hemoglobin 8.7 g/dL (11.5-15.4); Mean Corpuscular HGB Conc 32.6 g/dL (31.6-35.5); Mean Platelet Volume 10.4 fL (9.4-12.4); Platelet Count 378 K/mcL (140-400); Red Cell Distribution Width 15.2 % (11.5-14.5); White Blood Count 11.2 K/mcL (4.3-11.1)
[2020-09-01 07:41] LABS: BUN/Creatinine Ratio 35 (6-26); Blood Urea Nitrogen 30 mg/dL (8-23); Calcium 8.3 mg/dL (8.6-10.3); Carbon Dioxide 29 mEq/L (23-29); Chloride 99 mEq/L (98-107); Glucose 149 mg/dL (70-105); Osmolality,Calculated 289 (280-300); Potassium 4.6 mEq/L (3.5-5.1); Sodium 135 mEq/L (136-145); eGFR For African Americans > 60 (> 60); eGFR For Non-African Americans > 60 (> 60)
[2020-09-01] MEDS: Insulin LISPRO 300 UNITS/3 ML VIAL SUBQ SCH ×4 (09:30→12:04)
[2020-09-01] MEDS: Aspirin 81 MG TAB.CHEW PO SCH (09:30)
[2020-09-01] MEDS: Vancomycin Oral Soln 125 MG/2.5 ML UDC PO SCH ×2 (09:31→12:05)
[2020-09-01] MEDS: Isosorbide MONOnitrate (24 HR) 30 MG TAB.ER.24H PO SCH (09:31)
[2020-09-01] MEDS: Sennosides 8.6 MG TABLET PO SCH (09:31)
[2020-09-01] MEDS: Metoprolol XL (24 HR) Succ 25 MG TAB.ER.24H PO SCH (09:31)
[2020-09-01] MEDS: Lactobacillus 1 EACH CAP.SPRINK PO SCH (09:31)
[2020-09-01] MEDS: Loratadine 10 MG TABLET PO SCH (09:31)
[2020-09-01] MEDS: dexAMETHasone 4 MG TABLET PO SCH (09:31)
[2020-09-01] MEDS: *HR* Enoxaparin 40 MG/0.4 ML SYRINGE SQ SCH (09:31)
[2020-09-01] MEDS: Furosemide 20 MG/2 ML VIAL IVP SCH (09:31)
[2020-09-01] MEDS: Insulin DETEMIR 100 UNIT/ML X5UNITS SUBQ SCH (09:31)
[2020-09-01] MEDS: *HR* LORazepam 2 MG/ML VIAL IVP PRN (12:07)
== END 2020-09-01 12:59 | disposition other institution (70) | DRG 871 ==
LOC: 2NENU 21:57 → EMEROOARM 21:57 → SUATTDRO 08-20 01:38 → 2NENU 08-20 02:24 → SUATTDRO 08-21 13:34
PROVIDERS: ADMIT Student in an Organized Health Care Education/Training Program; ATTEND Internal Medicine

== ENCOUNTER 2021-05-22 14:03 | Inpatient (IN) ==
[2021-05-22 16:21] LABS: Basophils % 0.6 %; Eosinophils # 0.3 K/mcL (0.0-0.6); Hematocrit 29.3 % (35.3-44.9); Hemoglobin 8.9 g/dL (11.5-15.4); Immature Granulocytes % 0.6 % (0-4); Lymphocytes % 15.8 %; Mean Corpuscular HGB Conc 30.4 g/dL (31.6-35.5); Mean Corpuscular Hemoglobin 29.2 pg (28.0-33.3); Mean Corpuscular Volume 96.1 fL (83.0-100.0); Mean Platelet Volume 10.2 fL (9.4-12.4); Monocytes # 0.5 K/mcL (0.0-1.3); Neutrophils # 4.7 K/mcL (1.6-8.9); Platelet Count 162 K/mcL (140-400); Red Blood Count 3.05 M/mcL (3.82-4.97); Red Cell Distribution Width 16.2 % (11.5-14.5); White Blood Count 6.5 K/mcL (4.3-11.1)
[2021-05-22 16:40] LABS: Potassium 4.4 mEq/L (3.5-5.1); Troponin I 0.14 ng/mL (< 0.04)
[2021-05-22] MEDS ORDERED: Aspirin 325 MG TABLET PO ONE (16:49)
[2021-05-22] MEDS ORDERED: Furosemide 40 MG/4 ML VIAL IVP ONE (17:55)
[2021-05-22] MEDS ORDERED: Naloxone 0.4 MG/ML INJ IVP PRN (18:09)
[2021-05-22] MEDS ORDERED: Ondansetron 4 MG/2 ML VIAL IVP PRN (18:09)
[2021-05-22] MEDS ORDERED: Perflutren Lipid Microsphere 1.3 ML in 0.9 % Sodium Chloride 8.7 ML IVP PRN (18:12)
[2021-05-22 18:19] LABS: Influenza A PCR Negative (Negative); Influenza B PCR Negative (Negative); Resp. Syncytial Virus PCR Negative (Negative); SARS-CoV-2 by PCR (In House) Negative (Negative)
[2021-05-22] MEDS ORDERED: D5% in Water 1,000 ML IVC PRN (18:36)
[2021-05-22] MEDS ORDERED: Dextrose 4 GM Chewable Tablets PO PRN ×2 (18:36)
[2021-05-22] MEDS ORDERED: *HR* Dextrose 50 % in Water (Syg) 50 ML SYRINGE IVP PRN (18:36)
[2021-05-22] MEDS: Insulin LISPRO 300 UNITS/3 ML VIAL SUBQ SCH ×2 (20:31→20:32)
[2021-05-22] MEDS: Insulin DETEMIR 100 UNIT/ML X5UNITS SUBQ SCH (20:33)
[2021-05-22] MEDS: Furosemide 40 MG/4 ML VIAL IVP SCH (20:39)
[2021-05-23 02:39] LABS: Basophils # 0.1 K/mcL (0.0-0.2); Basophils % 0.8 %; Eosinophils # 0.4 K/mcL (0.0-0.6); Eosinophils % 5.9 %; Hematocrit 28.7 % (35.3-44.9); Hemoglobin 8.8 g/dL (11.5-15.4); Immature Granulocytes % 0.8 % (0-4); Lymphocytes # 1.4 K/mcL (0.6-4.6); Lymphocytes % 21.3 %; Mean Corpuscular HGB Conc 30.7 g/dL (31.6-35.5); Mean Corpuscular Hemoglobin 29.9 pg (28.0-33.3); Mean Corpuscular Volume 97.6 fL (83.0-100.0); Mean Platelet Volume 10.3 fL (9.4-12.4); Monocytes # 0.6 K/mcL (0.0-1.3); Monocytes % 9.7 %; Platelet Count 164 K/mcL (140-400); Red Blood Count 2.94 M/mcL (3.82-4.97); Red Cell Distribution Width 16.1 % (11.5-14.5); Segmented Neutrophils % 61.5 %; White Blood Count 6.5 K/mcL (4.3-11.1)
[2021-05-23 03:05] LABS: BUN/Creatinine Ratio 31 (6-26); Blood Urea Nitrogen 32 mg/dL (8-23); Calcium 9.2 mg/dL (8.6-10.3); Carbon Dioxide 35 mEq/L (23-29); Chloride 103 mEq/L (98-107); Cholesterol 134 mg/dL (< 200); Glucose 96 mg/dL (70-105); HDL Cholesterol 66 mg/dL (40-59); LDL Cholesterol,Calculated 55 mg/dL (< 100); Magnesium 1.9 mg/dL (1.6-2.6); Osmolality,Calculated 303 (280-300); Potassium 4.4 mEq/L (3.5-5.1); Sodium 143 mEq/L (136-145); Triglycerides 67 mg/dL (< 150); Troponin I 0.18 ng/mL (< 0.04); eGFR For African Americans > 60 (> 60); eGFR For Non-African Americans 51 (> 60)
[2021-05-23 03:13] LABS: Thyroid Stimulating Hormone 26.929 mcIU/mL (0.340-5.600)
[2021-05-23] MEDS ORDERED: Fluticasone Propionate Nasal 50 MCG/SPRAY BOTTLE NS PRN (08:36)
[2021-05-23] MEDS: Insulin LISPRO 300 UNITS/3 ML VIAL SUBQ SCH ×4 (08:39→21:04)
[2021-05-23] MEDS: Insulin NPH/REG 70/30 100 UNIT/ML (x5UNIT) SUBQ SCH ×2 (09:23→18:34)
[2021-05-23] MEDS: lisinopriL 10 MG TABLET PO SCH (10:48)
[2021-05-23] MEDS: Furosemide 40 MG/4 ML VIAL IVP SCH ×2 (10:51→17:11)
[2021-05-23] MEDS: Isosorbide MONOnitrate (24 HR) 30 MG TAB.ER.24H PO SCH (10:52)
[2021-05-23] MEDS: Gabapentin 100 MG CAPSULE PO SCH ×3 (10:52→21:03)
[2021-05-23] MEDS: Loratadine 10 MG TABLET PO SCH (10:52)
[2021-05-23] MEDS: Budesonide/Formoterol 160/4.5 1 PUFF INH IH SCH ×2 (11:59→20:02)
[2021-05-23 12:01] LABS: ABG Base Excess 10 mEq/L (-2 to 3); ABG HCO3 36 mEq/L (21-27); ABG Oxygen Saturation 99 % (95-98); ABG PCO2 57 mmHg (35-45); ABG PH 7.41 pH Units (7.32-7.45); ABG PO2 122 mmHg (85-104); ABG TCO2 37 mEq/L (20-26)
[2021-05-23] MEDS: *HR* Heparin 5,000 UNIT/ML VIAL SQ SCH (17:11)
[2021-05-23] MEDS: Nystatin POWDER 30 GM BOTTLE TP SCH ×2 (18:09→21:05)
[2021-05-23] MEDS: Insulin DETEMIR 100 UNIT/ML X5UNITS SUBQ SCH (21:03)
[2021-05-24] MEDS: *HR* Heparin 5,000 UNIT/ML VIAL SQ SCH ×2 (05:20→16:22)
[2021-05-24 06:42] LABS: Calcium 8.9 mg/dL (8.6-10.3); Potassium 4.6 mEq/L (3.5-5.1)
[2021-05-24] MEDS: Insulin LISPRO 300 UNITS/3 ML VIAL SUBQ SCH ×4 (07:31→21:58)
[2021-05-24] MEDS: Insulin NPH/REG 70/30 100 UNIT/ML (x5UNIT) SUBQ SCH ×2 (07:32→18:38)
[2021-05-24] MEDS: Furosemide 40 MG/4 ML VIAL IVP SCH (07:45)
[2021-05-24] MEDS: Loratadine 10 MG TABLET PO SCH (07:45)
[2021-05-24] MEDS: Isosorbide MONOnitrate (24 HR) 30 MG TAB.ER.24H PO SCH (07:45)
[2021-05-24] MEDS: lisinopriL 10 MG TABLET PO SCH (07:45)
[2021-05-24] MEDS: Gabapentin 100 MG CAPSULE PO SCH ×4 (07:45→21:44)
[2021-05-24] MEDS: Aspirin 81 MG TAB.CHEW PO SCH (07:45)
[2021-05-24] MEDS: Nystatin POWDER 30 GM BOTTLE TP SCH ×3 (07:46→21:46)
[2021-05-24] MEDS: Budesonide/Formoterol 160/4.5 1 PUFF INH IH SCH ×2 (08:20→21:59)
[2021-05-24] MEDS ORDERED: Metoprolol XL (24 HR) Succ 25 MG TAB.ER.24H PO SCH (09:00)
[2021-05-24 11:02] LABS: Estimated Average Glucose 243 mg/dl; Hemoglobin A1C 10.1 %
[2021-05-24] MEDS: Albumin 25% 25gram/100mL 25 GM/100 ML IV.SOLN IVPB SCH ×2 (11:31→18:37)
[2021-05-24 17:06] LABS: ABG Base Excess 9 mEq/L (-2 to 3); ABG HCO3 35 mEq/L (21-27); ABG Oxygen Saturation 95 % (95-98); ABG PCO2 58 mmHg (35-45); ABG PH 7.39 pH Units (7.32-7.45); ABG PO2 78 mmHg (85-104); ABG TCO2 37 mEq/L (20-26)
[2021-05-25] MEDS: Albumin 25% 25gram/100mL 25 GM/100 ML IV.SOLN IVPB SCH (00:46)
[2021-05-25] MEDS: *HR* Heparin 5,000 UNIT/ML VIAL SQ SCH ×2 (04:41→16:21)
[2021-05-25 05:52] LABS: Basophils % 0.8 %; Eosinophils # 0.3 K/mcL (0.0-0.6); Eosinophils % 5.7 %; Hematocrit 23.9 % (35.3-44.9); Immature Granulocytes % 0.4 % (0-4); Lymphocytes # 1.3 K/mcL (0.6-4.6); Mean Corpuscular HGB Conc 30.1 g/dL (31.6-35.5); Mean Corpuscular Hemoglobin 29.5 pg (28.0-33.3); Mean Platelet Volume 10.8 fL (9.4-12.4); Monocytes # 0.6 K/mcL (0.0-1.3); Monocytes % 10.4 %; Neutrophils # 3.1 K/mcL (1.6-8.9); Platelet Count 141 K/mcL (140-400); Red Blood Count 2.44 M/mcL (3.82-4.97); Red Cell Distribution Width 16.1 % (11.5-14.5); Segmented Neutrophils % 57.7 %; White Blood Count 5.3 K/mcL (4.3-11.1)
[2021-05-25 05:54] LABS: Hemoglobin 7.2 g/dL (11.5-15.4)
[2021-05-25 06:12] LABS: Phosphorous 4.2 mg/dL (2.7-4.5)
[2021-05-25 06:13] LABS: Calcium 9.1 mg/dL (8.6-10.3); Potassium 4.9 mEq/L (3.5-5.1)
[2021-05-25] MEDS: Insulin LISPRO 300 UNITS/3 ML VIAL SUBQ SCH ×4 (07:29→19:48)
[2021-05-25] MEDS: Budesonide/Formoterol 160/4.5 1 PUFF INH IH SCH ×2 (07:39→19:37)
[2021-05-25] MEDS ORDERED: Furosemide 40 MG/4 ML VIAL IVP SCH (09:00)
[2021-05-25] MEDS: Gabapentin 100 MG CAPSULE PO SCH ×3 (09:03→19:43)
[2021-05-25] MEDS: Loratadine 10 MG TABLET PO SCH (09:03)
[2021-05-25] MEDS: Nystatin POWDER 30 GM BOTTLE TP SCH ×3 (09:03→21:00)
[2021-05-25] MEDS: Isosorbide MONOnitrate (24 HR) 30 MG TAB.ER.24H PO SCH (09:03)
[2021-05-25] MEDS: Aspirin 81 MG TAB.CHEW PO SCH (09:03)
[2021-05-25] MEDS: Metoprolol XL (24 HR) Succ 25 MG TAB.ER.24H PO SCH (09:04)
[2021-05-25 09:09] LABS: % Iron Saturation 15 % (15-50); Iron 43 mcg/dL (50-170); Transferrin 208 mg/dL (203-362)
[2021-05-25 09:27] LABS: Ferritin 91 ng/mL (10-120)
[2021-05-25 09:32] LABS: Folate 17.7 ng/mL (3.0-16.0)
[2021-05-25] MEDS ORDERED: Acetaminophen IV 1,000 MG/100 ML BAG IVPB ONE (10:19)
[2021-05-25] MEDS: Insulin NPH/REG 70/30 100 UNIT/ML (x5UNIT) SUBQ SCH (17:58)
[2021-05-25] MEDS: Melatonin 3 MG TABLET PO PRN (19:44)
[2021-05-26 02:30] LABS: Basophils % 0.6 %; Eosinophils # 0.3 K/mcL (0.0-0.6); Eosinophils % 5.4 %; Hematocrit 23.8 % (35.3-44.9); Hemoglobin 7.3 g/dL (11.5-15.4); Immature Granulocytes % 0.6 % (0-4); Lymphocytes # 1.1 K/mcL (0.6-4.6); Lymphocytes % 20.6 %; Mean Corpuscular HGB Conc 30.7 g/dL (31.6-35.5); Mean Corpuscular Hemoglobin 29.4 pg (28.0-33.3); Mean Platelet Volume 10.6 fL (9.4-12.4); Monocytes # 0.4 K/mcL (0.0-1.3); Monocytes % 7.9 %; Neutrophils # 3.5 K/mcL (1.6-8.9); Platelet Count 140 K/mcL (140-400); Red Blood Count 2.48 M/mcL (3.82-4.97); Red Cell Distribution Width 15.9 % (11.5-14.5); Segmented Neutrophils % 64.9 %; White Blood Count 5.3 K/mcL (4.3-11.1)
[2021-05-26 02:39] LABS: Calcium 8.7 mg/dL (8.6-10.3); Potassium 4.8 mEq/L (3.5-5.1)
[2021-05-26 02:40] LABS: Phosphorous 4.4 mg/dL (2.7-4.5)
[2021-05-26] MEDS: *HR* Heparin 5,000 UNIT/ML VIAL SQ SCH ×2 (05:35→17:41)
[2021-05-26] MEDS: Budesonide/Formoterol 160/4.5 1 PUFF INH IH SCH ×2 (07:47→20:33)
[2021-05-26] MEDS: Metoprolol XL (24 HR) Succ 25 MG TAB.ER.24H PO SCH (08:49)
[2021-05-26] MEDS: Gabapentin 100 MG CAPSULE PO SCH ×3 (08:49→20:53)
[2021-05-26] MEDS: Isosorbide MONOnitrate (24 HR) 30 MG TAB.ER.24H PO SCH (08:49)
[2021-05-26] MEDS: Loratadine 10 MG TABLET PO SCH (08:49)
[2021-05-26] MEDS: Aspirin 81 MG TAB.CHEW PO SCH (08:49)
[2021-05-26] MEDS: Insulin LISPRO 300 UNITS/3 ML VIAL SUBQ SCH ×4 (08:50→20:54)
[2021-05-26] MEDS: Nystatin POWDER 30 GM BOTTLE TP SCH ×3 (09:21→21:02)
[2021-05-26] MEDS ORDERED: Insulin LISPRO 300 UNITS/3 ML VIAL SUBQ ONE (11:18)
[2021-05-26] MEDS: Albumin 25% 25gram/100mL 25 GM/100 ML IV.SOLN IVC SCH ×2 (15:15→16:48)
[2021-05-26] MEDS: Insulin NPH/REG 70/30 100 UNIT/ML (x5UNIT) SUBQ SCH (17:41)
[2021-05-26] MEDS: Melatonin 3 MG TABLET PO PRN (20:54)
[2021-05-26] MEDS ORDERED: Insulin LISPRO 300 UNITS/3 ML VIAL SUBQ SCH (21:00)
[2021-05-27] MEDS: *HR* Heparin 5,000 UNIT/ML VIAL SQ SCH ×2 (05:44→18:07)
[2021-05-27] MEDS: Aspirin 81 MG TAB.CHEW PO SCH (09:02)
[2021-05-27] MEDS: Loratadine 10 MG TABLET PO SCH (09:02)
[2021-05-27] MEDS: Insulin LISPRO 300 UNITS/3 ML VIAL SUBQ SCH ×4 (09:02→20:38)
[2021-05-27] MEDS: Metoprolol XL (24 HR) Succ 25 MG TAB.ER.24H PO SCH (09:02)
[2021-05-27] MEDS: Isosorbide MONOnitrate (24 HR) 30 MG TAB.ER.24H PO SCH (09:02)
[2021-05-27] MEDS: Gabapentin 100 MG CAPSULE PO SCH ×3 (09:03→19:42)
[2021-05-27] MEDS: Nystatin POWDER 30 GM BOTTLE TP SCH ×3 (09:03→19:44)
[2021-05-27 09:27] LABS: Basophils % 0.4 %; Eosinophils # 0.3 K/mcL (0.0-0.6); Eosinophils % 3.6 %; Hematocrit 26.5 % (35.3-44.9); Immature Granulocytes % 0.6 % (0-4); Lymphocytes # 0.9 K/mcL (0.6-4.6); Lymphocytes % 12.8 %; Mean Corpuscular HGB Conc 30.2 g/dL (31.6-35.5); Mean Corpuscular Hemoglobin 29.7 pg (28.0-33.3); Mean Corpuscular Volume 98.5 fL (83.0-100.0); Mean Platelet Volume 10.3 fL (9.4-12.4); Monocytes # 0.4 K/mcL (0.0-1.3); Monocytes % 5.7 %; Neutrophils # 5.3 K/mcL (1.6-8.9); Platelet Count 143 K/mcL (140-400); Red Blood Count 2.69 M/mcL (3.82-4.97); Red Cell Distribution Width 15.9 % (11.5-14.5); Segmented Neutrophils % 76.9 %; White Blood Count 6.9 K/mcL (4.3-11.1)
[2021-05-27 09:46] LABS: Calcium 9.3 mg/dL (8.6-10.3); Magnesium 2.2 mg/dL (1.6-2.6); Potassium 4.6 mEq/L (3.5-5.1)
[2021-05-27] MEDS: Budesonide/Formoterol 160/4.5 1 PUFF INH IH SCH ×2 (11:52→20:16)
[2021-05-27] MEDS ORDERED: Ringers Solution, Lactated 500 ML IVC SCH (12:45)
[2021-05-27] MEDS: Insulin NPH/REG 70/30 100 UNIT/ML (x5UNIT) SUBQ SCH (18:06)
[2021-05-27] MEDS: Melatonin 3 MG TABLET PO PRN (19:42)
[2021-05-27] MEDS ORDERED: Bismuth Subsalicylate 120 ML ORAL SUSPENSION PO PRN (23:46)
[2021-05-28 03:30] LABS: Basophils % 0.7 %; Eosinophils # 0.2 K/mcL (0.0-0.6); Eosinophils % 3.1 %; Hematocrit 24.3 % (35.3-44.9); Hemoglobin 7.2 g/dL (11.5-15.4); Immature Granulocytes % 0.8 % (0-4); Lymphocytes # 1.1 K/mcL (0.6-4.6); Lymphocytes % 17.1 %; Mean Corpuscular HGB Conc 29.6 g/dL (31.6-35.5); Mean Corpuscular Hemoglobin 29.1 pg (28.0-33.3); Mean Corpuscular Volume 98.4 fL (83.0-100.0); Mean Platelet Volume 11.2 fL (9.4-12.4); Monocytes # 0.4 K/mcL (0.0-1.3); Neutrophils # 4.4 K/mcL (1.6-8.9); Platelet Count 137 K/mcL (140-400); Red Blood Count 2.47 M/mcL (3.82-4.97); Red Cell Distribution Width 15.9 % (11.5-14.5); Segmented Neutrophils % 71.3 %; White Blood Count 6.1 K/mcL (4.3-11.1)
[2021-05-28 03:51] LABS: Calcium 8.9 mg/dL (8.6-10.3); Potassium 4.5 mEq/L (3.5-5.1)
[2021-05-28] MEDS: *HR* Heparin 5,000 UNIT/ML VIAL SQ SCH (05:53)
[2021-05-28] MEDS: Insulin LISPRO 300 UNITS/3 ML VIAL SUBQ SCH ×2 (07:31→13:50)
[2021-05-28] MEDS ORDERED: Furosemide 20 MG TABLET PO SCH (08:15)
[2021-05-28] MEDS: Budesonide/Formoterol 160/4.5 1 PUFF INH IH SCH (08:15)
[2021-05-28] MEDS ORDERED: lisinopriL 5 MG TABLET PO SCH (09:00)
[2021-05-28] MEDS: Isosorbide MONOnitrate (24 HR) 30 MG TAB.ER.24H PO SCH (09:09)
[2021-05-28] MEDS: Loratadine 10 MG TABLET PO SCH (09:09)
[2021-05-28] MEDS: Gabapentin 100 MG CAPSULE PO SCH (09:09)
[2021-05-28] MEDS: Nystatin POWDER 30 GM BOTTLE TP SCH (09:09)
[2021-05-28] MEDS: Metoprolol XL (24 HR) Succ 25 MG TAB.ER.24H PO SCH (09:09)
[2021-05-28] MEDS: Aspirin 81 MG TAB.CHEW PO SCH (09:14)
[2021-05-28 09:26] LABS: Hematocrit 24.7 % (35.3-44.9); Hemoglobin 7.5 g/dL (11.5-15.4)
[2021-05-28 10:41] VITALS: BP 106/70; PULSE 84; TEMP 98; O2SAT 95
== END 2021-05-28 16:26 | DRG 280 ==
LOC: EMEROOARM 14:03 → 3BNU 14:03 → SUATTDRO 05-23 12:47 → 3BNU 05-26 10:49
PROVIDERS: ADMIT Internal Medicine; ATTEND Internal Medicine